=== PATIENT | female | born 1940 | race Caucasian/White ===

== ENCOUNTER 2023-01-22 18:28 | Observation (INO) ==
[2023-01-22 19:49] LABS: Albumin Globulin Ratio 1.3 (0.9-2); Albumin Level 3.8 gm/dl (3.4-5.0); BUN Creatinine Ratio 24.6 (10-20); Bilirubin,Total 0.3 mg/dl (0.2-1.0); Calcium 9.8 mg/dl (8.6-10.3); Creatinine Clr Calc Pharmacy 31.4 ml/min; Est GFR (African American) 46.6 ml/min; Est GFR (Non-African American) 40.2 ml/min; Potassium 4.2 mmol/L (3.5-5.1); Total Protein 6.8 gm/dl (6.0-8.3)
[2023-01-22 20:03] LABS: Basophils # (auto) 0.09 K/uL (0.00-0.20); Basophils % (auto) 0.5 %; Eosinophils # (auto) 0.12 K/uL (0.00-0.50); Eosinophils % (auto) 0.7 %; Hematocrit (blood only) 37.5 % (37.0-47.0); Immature Granulocytes # (auto) 0.08 K/uL (0.01-0.20); Immature Granulocytes % (auto) 0.5 %; Lymphocytes # (auto) 0.61 K/uL (1.20-3.40); Lymphocytes % (auto) 3.6 %; Mean Corpuscular Hemoglobin 29.6 pg (25.0-34.0); Mean Corpuscular Volume 92.6 fL (80.0-100.0); Mean Platelet Volume 11.7 fL (9.4-12.4); Monocytes % (auto) 5.2 %; Neutrophils # (auto) 15.37 K/uL (1.40-6.50); Neutrophils % (auto) 89.5 %; Platelet Count 268 K/uL (130-400); RDW Coefficient of Variation 13.3 % (11.5-14.5); RDW Standard Deviation 45.1 fL (36.4-46.3); Red Blood Count 4.05 M/uL (4.20-5.40); White Blood Count 17.17 K/ul (4.8-10.8)
[2023-01-22 20:12] LABS: Influenza A virus by PCR Negative (Neg); Influenza B virus by PCR Negative (Neg); RSV by PCR Negative (Neg); SARS CoV2 RNA(COVID-19) Ceph NEGATIVE (Negative)
--- NOTE | 2023-01-22 20:51 | XRay Report ---
SINGLE VIEW CHEST CLINICAL HISTORY: Dyspnea. FINDINGS: An AP, portable, upright chest radiograph is obtained. No prior studies are available for c omparison at the time of dictation. The examination is degraded by portable technique and apical lord otic positioning. There is a large hiatal hernia. The cardiomediastinal silhouette is unremarkable no ting atherosclerotic calcification of the thoracic aorta. Nonspecific interstitial thickening is like ly chronic. There is bibasilar scarring/atelectasis. No airspace consolidation or large pleural effus ion is identified. No pneumothorax is seen. The skeletal structures are osteopenic. The bony thorax i s grossly intact. Advanced arthritic change is seen in the shoulders. Surgical clips are noted in the right axilla. IMPRESSION: 1. No active disease in the chest. 2. Large hiatal hernia. ACT 112: Negative or not required by law. Electronically signed by: Jose Aguiar M.D. 01/22/2023 8:50 PM
[2023-01-22] MEDS ORDERED: LORazepam 1 MG TAB PO STA (21:41)
[2023-01-22 21:42] LABS: Base Excess VBG 1.5 mEq/L; HCO3 VBG 27 mmol/L; Oxygen Saturation VBG < 60.0 %; PCO2 VBG 43 mmHg (38-50); PO2 VBG 24 mmHg
[2023-01-22] MEDS ORDERED: OPTIRAY 320 125ml IV ONE (21:49)
--- NOTE | 2023-01-22 22:08 | CT Scan Report ---
CT ANGIOGRAM OF THE CHEST CLINICAL HISTORY: Dyspnea. Fever. COMPARISON STUDY: Chest x-ray dated 01/22/2023. TECHNIQUE: Following the IV administration of 118 cc of Optiray 320, CT angiogram of the chest was pe rformed from the upper abdomen to the thoracic inlet utilizing the pulmonary embolus protocol. Images are reviewed in the axial, sagittal, and coronal planes. 3-D MIPS images are created and assessed. I V contrast was administered without complication. A dose lowering technique was utilized adhering to the principles of ALARA. CT DOSE: 693.32 mGy.cm FINDINGS: Thyroid: Imaged portions of the thyroid gland are normal in size and attenuation. Thoracic aorta: There is atherosclerotic calcification of the thoracic aorta, which is normal in ze lissette and demonstrates standard 3-vessel arch anatomy. No dissection is seen. Pulmonary vasculature: The pulmonary trunk is normal in caliber. There is pulmonary embolus within th e distal left main pulmonary artery. This extends into the left upper, middle, and lower lobe pulmona ry arteries into segmental branches. No left-sided pulmonary emboli are identified. Heart: The heart is top normal in size and without pericardial effusion. The coronary arteries are de nsely calcified. Lungs and pleural spaces: Evaluation of the lung parenchyma is degraded by motion artifact. Linear sc arring/atelectasis is noted in both lungs. There is no airspace consolidation typical for pneumonia o r pleural effusion. The trachea and central airways are clear. Mediastinum: There is no mediastinal lymphadenopathy. Gayathri: Clear. Axillae: Surgical clips are noted in the right axilla. There is no axillary lymphadenopathy. Upper abdomen: There is a large hiatal hernia, with the majority of the stomach located in the thorax . The esophagus is patulous and filled with fluid above the level of the camryn. Complex/hyperdense l eft renal cysts measure up to 1.5 cm. Skeletal structures: The skeletal structures are osteopenic. Degenerative change and kyphoscoliosis i s noted in the thoracic spine. There is a mild chronic compression deformity of T8. No lytic or blast ic bony lesions are seen. Arthritic change is noted in the shoulders. IMPRESSION: 1. Right-sided pulmonary emboli as above. 2. There is no airspace consolidation or pleural effusion. 3. Large hiatal hernia. 4. Additional findings as above. ACT 112: Negative or not required by law. Electronically signed by: Jose Aguiar M.D. 01/22/2023 10:05 PM
[2023-01-22 22:11] LABS: Troponin I High Sensitivity 9.1 pg/ml (0-14)
[2023-01-22] MEDS ORDERED: Heparin IV Adult Wt-Based Standard w/ INITIAL Bolus Protocol IV STA (22:30)
[2023-01-22] MEDS ORDERED: HEPARIN SODIUM/DEXTROSE 25,000 UNITS/500 ML BAG IV SCH (22:45)
[2023-01-22] MEDS ORDERED: HEPARIN SOD (PORCINE) 1000 UNIT/ML IV ONE (22:45)
--- NOTE | 2023-01-22 23:00 | Emergency Department Note ---
History of Present Illness General Chief Complaint: Illness Stated Complaint: FEVER, ILLNESS, HEADACHE Time Seen by Provider: 01/22/23 21:13 History of Present Illness Provider Complaint: shortness of breath Onset (ago): day(s) (1) Maximum Pain Intensity: 2 Exacerbated By: + coughing Associated symptoms: + fever, + cough and + sputum production; no hemoptysis, no abdominal pain or no chest congestion HPI Narrative: EMS reported that the patient was 86% on room air which improved to 98% on 2 L nasal cannula. Home Medications Medication Instructions Recorded Confirmed Type lorazepam 1 mg tablet (Ativan) 1 mg PO BID 11/28/20 01/22/23 History venlafaxine 75 mg capsule,extended 75 mg PO DAILY 11/28/20 01/22/23 History release 24 hr (Effexor XR) rosuvastatin 20 mg tablet (Crestor) 20 mg PO DAILY 03/27/22 01/22/23 History acetaminophen 325 mg tablet 650 mg PO Q4H PRN PAIN/FEVER 01/22/23 01/22/23 History (Tylenol) amlodipine 5 mg tablet 5 mg PO DAILY 01/22/23 01/22/23 History gabapentin 100 mg capsule 100 mg PO BID 01/22/23 01/22/23 History metoprolol succinate 50 mg 50 mg PO BID 01/22/23 01/22/23 History tablet,extended release 24 hr multivitamin 1 tab PO QAM 01/22/23 01/22/23 History oxybutynin chloride 5 mg tablet 5 mg PO DAILY 01/22/23 01/22/23 History propylene glycol 0.6 % eye drops 1 drp OPB BID 01/22/23 01/22/23 History (Systane Complete) quetiapine 25 mg tablet (Seroquel) 25 mg PO HS 01/22/23 01/22/23 History venlafaxine 150 mg 150 mg PO DAILY 01/22/23 01/22/23 History capsule,extended release 24 hr (Effexor XR) Allergies Allergy/AdvReac Type Severity Reaction Status Date / Time tramadol AdvReac Severe Swelling Verified 01/22/23 20:50 of Lip/Tongue/Throat Past Med/Surg History Medical History Cervical radiculopathy Cervical facet syndrome Cervical stenosis of spinal canal Lumbar facet joint syndrome Cervicalgia Bursitis of right hip Left knee DJD Social History Smoking Status: Never smoker Hx Alcohol Use: No Hx Substance Use: No Preferred Language: Greek Communication Ability: Effective Visual Impairment: Limited Hearing Ability: Normal Clinical Case Manager Required: No Beliefs That Will Affect Care: None marital status: Current Living Situation: Spouse Feels Safe at Home: Yes Physical Exam 2 Vital Signs: Vital Signs - 24 hr 01/22/23 18:37 01/22/23 19:59 01/22/23 19:59 Temperature 36.6 C Temperature Source Temporal Artery Sc an Pulse Rate 104 H 90 89 Pulse Rate from Sp O2 Sensor 90 Respiratory Rate 20 18 Respiratory Effort / Characteristics Non-Labored Sponta neous Respiratory Depth Normal Blood Pressure 126/76 Blood Pressure Mindi n 92 Pulse Oximetry 95 94 Oxygen Delivery Me thod Room Air Sepsis Recent Feve r Within 48 Hours No Sepsis New/Unexpla ined Change in Men adriano Status No Sepsis Action Take n by Nursing No Action Required 01/22/23 20:00 01/22/23 20:00 01/22/23 20:10 Temperature Temperature Source Pulse Rate 93 H 89 Pulse Rate from Sp O2 Sensor 93 H 90 Respiratory Rate 22 19 Respiratory Effort / Characteristics Respiratory Depth Blood Pressure 158/82 H 158/82 H Blood Pressure Mindi n 103 107 Pulse Oximetry 93 94 Oxygen Delivery Me thod Sepsis Recent Feve r Within 48 Hours Sepsis New/Unexpla ined Change in Men adriano Status Sepsis Action Take n by Nursing 01/22/23 20:20 01/22/23 20:30 01/22/23 20:40 Temperature Temperature Source Pulse Rate 88 89 89 Pulse Rate from Sp O2 Sensor 88 88 89 Respiratory Rate 19 18 19 Respiratory Effort / Characteristics Respiratory Depth Blood Pressure 142/77 H Blood Pressure Mindi n 98 Pulse Oximetry 92 92 92 Oxygen Delivery Me thod Sepsis Recent Feve r Within 48 Hours Sepsis New/Unexpla ined Change in Men adriano Status Sepsis Action Take n by Nursing 01/22/23 20:50 01/22/23 21:00 01/22/23 21:00 Temperature Temperature Source Pulse Rate 88 85 Pulse Rate from Sp O2 Sensor 88 85 Respiratory Rate 19 19 Respiratory Effort / Characteristics Respiratory Depth Blood Pressure 137/75 Blood Pressure Mindi n 104 Pulse Oximetry 92 91 Oxygen Delivery Me thod Sepsis Recent Feve r Within 48 Hours Sepsis New/Unexpla ined Change in Men adriano Status Sepsis Action Take n by Nursing 01/22/23 21:40 01/22/23 21:57 01/22/23 21:57 Temperature Temperature Source Pulse Rate 93 H 86 Pulse Rate from Sp O2 Sensor 92 H 87 Respiratory Rate 20 19 Respiratory Effort / Characteristics Respiratory Depth Blood Pressure 138/82 Blood Pressure Mindi n 107 Pulse Oximetry 95 94 Oxygen Delivery Me thod Sepsis Recent Feve r Within 48 Hours Sepsis New/Unexpla ined Change in Men adriano Status Sepsis Action Take n by Nursing 01/22/23 22:00 01/22/23 22:00 01/22/23 22:30 Temperature Temperature Source Pulse Rate 85 82 Pulse Rate from Sp O2 Sensor 86 83 Respiratory Rate 21 18 Respiratory Effort / Characteristics Respiratory Depth Blood Pressure 149/79 H Blood Pressure Mindi n 108 Pulse Oximetry 94 95 Oxygen Delivery Me thod Sepsis Recent Feve r Within 48 Hours Sepsis New/Unexpla ined Change in Men adriano Status Sepsis Action Take n by Nursing 01/22/23 22:30 Temperature Temperature Source Pulse Rate Pulse Rate from Sp O2 Sensor Respiratory Rate Respiratory Effort / Characteristics Respiratory Depth Blood Pressure 144/76 H Blood Pressure Mindi n 98 Pulse Oximetry Oxygen Delivery Me thod Sepsis Recent Feve r Within 48 Hours Sepsis New/Unexpla ined Change in Men adriano Status Sepsis Action Take n by Nursing Physical Exam: Physical Exam GENERAL: oriented to person, place, and time. appears well-developed and well- nourished. HENT: Exam performed. - Head: Normocephalic and atraumatic. EYES: Conjunctivae and EOM are normal. Right eye exhibits no discharge. Left eye exhibits no discharge. No scleral icterus. NECK: Normal range of motion. Neck supple. No JVD present. CV: Normal rate, regular rhythm, normal heart sounds and intact distal pulses. There is no peripheral edema. Palpable radial pulses bue. PULM/CHEST: Effort normal and breath sounds normal. No respiratory distress. No stridor. no wheezes. no rales. ABD: The abdomen is soft. There is no tenderness. NEURO: Motor and sensation grossly intact. SKIN: Skin is warm and dry. He is not diaphoretic. PSYCH: normal mood and affect. Behavior is normal. Judgment and thought content normal. Course Course 2112: The patient was evaluated in room C10. A complete history and physical exam was performed Cardiac monitoring: An order was placed for continuous cardiac monitoring. The monitor shows a rate of 100 with sinus rhythm interpreted by me 2245: Vital signs stable. Labs show mildly elevated BNP with a white count of 17. Imaging shows extensive pulmonary emboli. Patient be started on a heparin bolus and drip [facility]. Administered Medications Discontinued Medications Ioversol (Optiray 320 125ml) 118 ml IV ONCE ONE Stop: 01/22/23 21:50 Last Admin: 01/22/23 21:49 Dose: 118 ml Documented By: CHRISTIANNE Lorazepam (Lorazepam 1 Mg Tab) 1 mg PO NOW STA Stop: 01/22/23 21:42 Last Admin: 01/22/23 21:45 Dose: 1 mg Documented By: HAJA Medical Decision Making Laboratory Data Attestation: I reviewed the patient's lab results. 01/22/23 19:10 01/22/23 19:10 Lab Results 01/22/23 01/22/23 Range/Units 19:10 21:33 WBC 17.17 H (4.8-10.8) K/ul RBC 4.05 L (4.20-5.40) M/uL Hgb 12.0 (12.0-16.0) g/dl Hct 37.5 (37.0-47.0) % MCV 92.6 (80.0-100.0) fL MCH 29.6 (25.0-34.0) pg MCHC 32.0 (32.0-36.0) g/dL RDW Std Deviation 45.1 (36.4-46.3) fL RDW Coeff of Delvin 13.3 (11.5-14.5) % Plt Count 268 (130-400) K/uL MPV 11.7 (9.4-12.4) fL Immature Gran % (Auto) 0.5 % Neut % (Auto) 89.5 % Lymph % (Auto) 3.6 % [place]on % (Auto) 5.2 % Eos % (Auto) 0.7 % Baso % (Auto) 0.5 % Neut # (Auto) 15.37 H (1.40-6.50) K/uL Lymph # (Auto) 0.61 L (1.20-3.40) K/uL [place]on # (Auto) 0.90 H (0.11-0.59) K/uL Eos # (Auto) 0.12 (0.00-0.50) K/uL Baso # (Auto) 0.09 (0.00-0.20) K/uL Immature Gran # (Auto) 0.08 (0.01-0.20) K/uL VBG pH 7.40 (7.36-7.41) VBG pCO2 43 (38-50) mmHg VBG pO2 24 mmHg VBG HCO3 27 mmol/L VBG O2 Saturation < 60.0 % VBG Base Excess 1.5 mEq/L Sodium 138 (136-145) mmol/L Potassium 4.2 (3.5-5.1) mmol/L Chloride 105 (98-107) mmol/L Carbon Dioxide 23 (21-32) mmol/L Anion Gap 10 (3-11) BUN 31 H (6-23) mg/dl Creatinine 1.26 H (0.6-1.2) mg/dl Est Cr Clr Drug Dosing 31.4 ml/min Est GFR ( Amer) 46.6 ml/min Est GFR (Non-Af Amer) 40.2 ml/min BUN/Creatinine Ratio 24.6 H (10-20) Glucose 159 H (70-99(Fasting)) mg/dl Calcium 9.8 (8.6-10.3) mg/dl Total Bilirubin 0.3 (0.2-1.0) mg/dl AST 39 (13-39) U/L ALT 31 (7-52) U/L Alkaline Phosphatase 73 (34-104) U/L Troponin I High Sens 9.1 (0-14) pg/ml B-Natriuretic Peptide 251 H (0-100) pg/ml Total Protein 6.8 (6.0-8.3) gm/dl Albumin 3.8 (3.4-5.0) gm/dl Globulin 3.0 (2.5-4.0) gm/dl Albumin/Globulin Ratio 1.3 (0.9-2) SARS-CoV-2 (PCR) NEGATIVE (Negative) Influenza Type A (PCR) Negative (Neg) Influenza Type B (PCR) Negative (Neg) RSV (RT-PCR) Negative (Neg) Imaging Data Radiologist's Impression: Chest X-Ray 01/22/23 18:40 SINGLE VIEW CHEST CLINICAL HISTORY: Dyspnea. FINDINGS: An AP, portable, upright chest radiograph is obtained. No prior studies are available for comparison at the time of dictation. The examination is degraded by portable technique and apical lordotic positioning. There is a large hiatal hernia. The cardiomediastinal silhouette is unremarkable noting atherosclerotic calcification of the thoracic aorta. Nonspecific interstitial thickening is likely chronic. There is bibasilar scarring/atelectasis. No airspace consolidation or large pleural effusion is identified. No pneumothorax is seen. The skeletal structures are osteopenic. The bony thorax is grossly intact. Advanced arthritic change is seen in the shoulders. Surgical clips are noted in the right axilla. IMPRESSION: 1. No active disease in the chest. 2. Large hiatal hernia. ACT 112: Negative or not required by law. Electronically signed by: Jose Aguiar M.D. 01/22/2023 8:50 PM Chest CTA 01/22/23 21:20 CT ANGIOGRAM OF THE CHEST CLINICAL HISTORY: Dyspnea. Fever. COMPARISON STUDY: Chest x-ray dated 01/22/2023. TECHNIQUE: Following the IV administration of 118 cc of Optiray 320, CT angiogram of the chest was performed from the upper abdomen to the thoracic inlet utilizing the pulmonary embolus protocol. Images are reviewed in the axial, sagittal, and coronal planes. 3-D MIPS images are created and assessed. IV contrast was administered without complication. A dose lowering technique was utilized adhering to the principles of ALARA. CT DOSE: 693.32 mGy.cm FINDINGS: Thyroid: Imaged portions of the thyroid gland are normal in size and attenuation. Thoracic aorta: There is atherosclerotic calcification of the thoracic aorta, which is normal in caliber and demonstrates standard 3-vessel arch anatomy. No dissection is seen. Pulmonary vasculature: The pulmonary trunk is normal in caliber. There is pulmonary embolus within the distal left main pulmonary artery. This extends into the left upper, middle, and lower lobe pulmonary arteries into segmental branches. No left-sided pulmonary emboli are identified. Heart: The heart is top normal in size and without pericardial effusion. The coronary arteries are densely calcified. Lungs and pleural spaces: Evaluation of the lung parenchyma is degraded by motion artifact. Linear scarring/atelectasis is noted in both lungs. There is no airspace consolidation typical for pneumonia or pleural effusion. The trachea and central airways are clear. Mediastinum: There is no mediastinal lymphadenopathy. Gayathri: Clear. Axillae: Surgical clips are noted in the right axilla. There is no axillary lymphadenopathy. Upper abdomen: There is a large hiatal hernia, with the majority of the stomach located in the thorax. The esophagus is patulous and filled with fluid above the level of the camryn. Complex/hyperdense left renal cysts measure up to 1.5 cm. Skeletal structures: The skeletal structures are osteopenic. Degenerative change and kyphoscoliosis is noted in the thoracic spine. There is a mild chronic compression deformity of T8. No lytic or blastic bony lesions are seen. Arthritic change is noted in the shoulders. IMPRESSION: 1. Right-sided pulmonary emboli as above. 2. There is no airspace consolidation or pleural effusion. 3. Large hiatal hernia. 4. Additional findings as above. ACT 112: Negative or not required by law. Electronically signed by: Jose Aguiar M.D. 01/22/2023 10:05 PM ECG Data Attestation: I personally reviewed and interpreted this ECG as follows: Interpretation: Sinus tachycardia with a rate of 105. SD QRS and QTc intervals within normal limits. No ST elevation or ST depression. [facility] Narrative 2113: The patient was evaluated in room C10. A complete history and physical exam was performed Cardiac monitoring: An order was placed for continuous cardiac monitoring. The monitor shows a rate of 100 with sinus rhythm interpreted by va 2245: Vital signs stable. Labs show mildly elevated BNP with a white count of 17. Imaging shows extensive pulmonary emboli. Patient be started on a heparin bolus and drip [facility]. Impression & Plan Pulmonary embolism Critical Care Time Critical Care Time: Yes Total Critical Care Time: 48 I have personally spent greater than 48 minutes of critical care time in the direct management of this patient. This includes bedside care, interpretation of diagnostic studies, and testing, discussion with consultants, patient, and family members, and other required patient management activities. This 48 minutes is in excess of all separately billable procedures. Discharge Plan Visit Data Chief Complaint: Illness Stated Complaint: FEVER, ILLNESS, HEADACHE ED Provider: Eliseo Rios Discharge Problem: Pulmonary embolism Patient Disposition: Admitted As Inpatient Forms Stand Alone Forms: My [facility] Prescriptions Prescriptions: No Action rosuvastatin [Crestor] 20 mg tablet 20 mg PO DAILY venlafaxine [Effexor XR] 75 mg capsule,extended release 24hr 75 mg PO DAILY Rx Instructions: TOTAL DOSE 225 MG--TAKES WITH 150 MG CAP. lorazepam [Ativan] 1 mg tablet 1 mg PO BID Rx Instructions: TAKES AT 0800 & 1400 multivitamin Tablet 1 tab PO QAM quetiapine [Seroquel] 25 mg Tablet 25 mg PO HS acetaminophen [Tylenol] 325 mg Tablet 650 mg PO Q4H MDD 3 GRAMS APAP/24 HOURS PRN (Reason: PAIN/FEVER) metoprolol succinate 50 mg Tablet Extended Release 24 Hr 50 mg PO BID venlafaxine [Effexor XR] 150 mg Capsule,Extended Release 24hr 150 mg PO DAILY Rx Instructions: TOTAL DOSE 225 MG--TAKES WITH 75 MG CAP. amlodipine 5 mg Tablet 5 mg PO DAILY gabapentin 100 mg Capsule 100 mg PO BID oxybutynin chloride 5 mg Tablet 5 mg PO DAILY Systane Complete 0.6 % Drops 1 drp OPB BID Referrals Referrals: Jamin Rashid M.D. [Primary Care Provider] - Discharge Problem: Pulmonary embolism Qualifiers: Pulmonary embolism type: unspecified Chronicity: acute Acute cor pulmonale presence: without acute cor pulmonale Qualified Code(s): I26.99 - Other pulmonary embolism without acute cor pulmonale
[2023-01-22] MEDS ORDERED: HEPARIN SOD (PORCINE) 1000 UNIT/ML IV STA (23:12)
--- NOTE | 2023-01-22 23:27 | History & Physical Report ---
Date of Service January 22, 2023 Assessment & Plan (1) Acute pulmonary embolus: Plan: The patient presented with a fever it does appear probably secondary to acute pulmonary emboli. She has never had a thrombotic event in her past history or family history that she is aware. However she is fairly immobile and debilitated typically ambulates with a rollator and limited amounts. She has had left leg discomfort for the past few days. Heparin drip was initiated in the ER we will continue heparin drip at this time will obtain an echocardiogram to analyze for right-sided heart strain. Pending clinical course she will be switched over to oral anticoagulation prior to discharge (2) Left leg pain: Plan: Rule out DVT bilateral lower extremity venous duplexes have been ordered. (3) Debility: Plan: Normally ambulates with a rollator at the assisted living/personal-nursing home she is fairly debilitated and immobile. (4) Breast cancer: Plan: Remotely mid . Status post lumpectomy (5) Hyperlipidemia: Plan: Continue current outpatient treat (6) Hypertension: Plan: Continue current outpatient treat (7) Anxiety: Plan: Continue current outpatient treatment Plan As described above. Please refer to orders for further planning History of Present Illness Chief Complaint: Fever Primary Care Provider: Jamin Rashid M.D. Pleasant 82-year-old female sent from a assisted living type environment/personal nursing home type environment with fever for evaluation in the ER Upon presentation the patient did not have a fever but was found to be hypoxic at 86% when EMS arrived. Her hypoxia improved in the ER. However CTA was performed and was found to have fairly extensive right-sided pulmonary emboli which appear to be acute. Laboratory studies showed a white count of 17,000. Viral panel including COVID influenza A/B and RSV were all negative. She was afebrile in the ER. She was commenced on a heparin drip and we are called admit the patient for acute PE On further history taking when I saw the patient she complains of left-sided leg pain in her lateral thigh/quadriceps region. Otherwise she has no complaints of chest pain or shortness of breath or any other complaints whatsoever. She does state that her recently in October and she has been dealing with that she has been on Ativan for an extended period of time but is using that as well as Seroquel in the evenings. Allergies Allergy/AdvReac Type Severity Reaction Status Date / Time tramadol AdvReac Severe Swelling Verified 01/22/23 20:50 of Lip/Tongue/Throat Home Medications Medication Instructions Recorded Confirmed Type lorazepam 1 mg tablet (Ativan) 1 mg PO BID 11/28/20 01/22/23 History venlafaxine 75 mg capsule,extended 75 mg PO DAILY 11/28/20 01/22/23 History release 24 hr (Effexor XR) rosuvastatin 20 mg tablet (Crestor) 20 mg PO DAILY 03/27/22 01/22/23 History acetaminophen 325 mg tablet 650 mg PO Q4H PRN PAIN/FEVER 01/22/23 01/22/23 History (Tylenol) amlodipine 5 mg tablet 5 mg PO DAILY 01/22/23 01/22/23 History gabapentin 100 mg capsule 100 mg PO BID 01/22/23 01/22/23 History metoprolol succinate 50 mg 50 mg PO BID 01/22/23 01/22/23 History tablet,extended release 24 hr multivitamin 1 tab PO QAM 01/22/23 01/22/23 History oxybutynin chloride 5 mg tablet 5 mg PO DAILY 01/22/23 01/22/23 History propylene glycol 0.6 % eye drops 1 drp OPB BID 01/22/23 01/22/23 History (Systane Complete) quetiapine 25 mg tablet (Seroquel) 25 mg PO HS 01/22/23 01/22/23 History venlafaxine 150 mg 150 mg PO DAILY 01/22/23 01/22/23 History capsule,extended release 24 hr (Effexor XR) Past Med/Surg History Medical History (Updated 01/22/23 @ 23:37 by Gen Thurston, PhD, DO) Debility Left leg pain Acute pulmonary embolus Breast cancer Debility Depression Anxiety Hyperlipidemia Hypertension Cervical radiculopathy Cervical facet syndrome Cervical stenosis of spinal canal Lumbar facet joint syndrome Cervicalgia Bursitis of right hip Left knee DJD Surgical History (Updated 01/22/23 @ 23:34 by Gen Thurston, PhD, DO) History of total hip arthroplasty History of arthroplasty of knee History of lumpectomy Social History Smoking Status: Never smoker Hx Alcohol Use: No Hx Substance Use: No Preferred Language: Chinese Communication Ability: Effective Visual Impairment: Limited Hearing Ability: Normal Supervisor Motor Vehicle Assembly Required: No Beliefs That Will Affect Care: None marital status: Current Living Situation: Spouse Feels Safe at Home: Yes Review of Systems Review of Systems: A 10 point review system was obtained unless otherwise stated here or in history of present illness are negative or noncontributory to chief complaint. Specifically the patient has no history of thrombotic events DVT PE and no family history that she is aware of Physical Exam Physical Exam: In general: This is a pleasant 82-year-old female who is alert and oriented x 3 at time my exam she interacts appropriately and pleasantly at the time my examination she is in no acute distress. HEENT: Normocephalic atraumatic pupils are equal round and reactive to light bilaterally. No scleral icterus no conjunctival injection external auditory canals are patent septum is in the midline nose is without discharge oral mucosa is pink and moist without lesion. NECK: Supple no rigidity no lymphadenopathy no thyromegaly no carotid bruits no JVD no masses. HEART: Regular rate and rhythm I do not appreciate any ectopy or rub. No murmur. LUNGS: Clear to auscultation bilaterally and anteriorly with no evidence of adventitious sounds/wheezes rales or rhonchi. ABDOMEN: Soft nontender, no rebound, no peritoneal signs, positive bowel sounds, no appreciable organomegaly. EXTREMITIES: Intact, no peripheral cyanosis, clubbing or edema-with the exception of some mild edema in the left lateral thigh region where she has been having some pain for the last 2 days.. Strength is 5 out of 5 in extremities x4, no pathological reflexes. NEUROLOGICAL: Cranial nerves II through XII are grossly intact with no focal deficit elicited upon examination. No tremor. Results & Data Results & Data Vital Signs (Past 12 Hours) Vital Signs Temp Pulse Resp BP Pulse Ox O2 Del Method 01/22/23 22:30 144/76 H 01/22/23 22:30 82 18 95 01/22/23 22:00 85 21 94 01/22/23 22:00 149/79 H 01/22/23 21:57 138/82 01/22/23 21:57 86 19 94 01/22/23 21:40 93 H 20 95 01/22/23 21:00 85 19 91 01/22/23 21:00 137/75 01/22/23 20:50 88 19 92 01/22/23 20:40 89 19 92 01/22/23 20:30 89 18 142/77 H 92 01/22/23 20:20 88 19 92 01/22/23 20:10 89 19 94 01/22/23 20:00 93 H 22 158/82 H 93 01/22/23 20:00 158/82 H 01/22/23 19:59 89 18 94 01/22/23 19:59 90 01/22/23 18:37 36.6 C 104 H 20 126/76 95 Room Air Code Status & VTE Plan Code Status DO NOT RESUSCITATE/DO NOT INTUBATE-I discussed extensively with the patient she is recently lost her to in October 2022 and under no circumstances would she want any type of CPR or intubation or mechanical ventilation VTE Prophylaxis Plan VTE Prophylaxis will be ordered: Yes PG Care Time/CCT Total # of Minutes Spent Total Time Spent with Patient: Total time spent is greater than 50% in coordination of care (as documented) at patient's floor/unit and/or counseling patient: Coding Level of Care Code 69606 INT INP/OBS CARE 3/75MIN Diagnoses Acute pulmonary embolus I26.99 Left leg pain M79.605 Debility R53.81 Breast cancer C50.919 Hyperlipidemia E78.5 Hypertension I10 Anxiety F41.9
--- NOTE | 2023-01-23 01:48 | Ultrasound Report ---
Exam(s): US VENOUS BILATERAL LOWER EXTREMITIES EXAM: US Duplex Bilateral Lower Extremities Veins CLINICAL HISTORY: Reason for exam: acute PE, Left leg pain. TECHNIQUE: Real-time duplex ultrasound scan of the bilateral lower extremity veins integrating B-mode two-dimensional vascular structure, Doppler spectral analysis, color flow Doppler imaging and compression. COMPARISON: No relevant prior studies available. FINDINGS: Right deep veins: Nonocclusive thrombus within the right common femoral vein and short segment extending into the proximal femoral vein. Noncompressible right peroneal veins with thrombus. Right superficial veins: Unremarkable. No thrombus in the visualized right great saphenous vein. Left deep veins: Unremarkable. No DVT in the left common femoral, femoral, proximal deep femoral or popliteal veins. The veins demonstrate normal color flow, are normally compressible, with normal phasic flow and/or augmentation response. Left superficial veins: Unremarkable. No thrombus in the visualized left great saphenous vein. Soft tissues: No acute findings. No popliteal cyst. IMPRESSION: Right lower extremity DVT: nonocclusive DVT in the right common femoral and proximal femoral veins. Occlusive DVT in the right peroneal veins. Communications: Call Doctor DVT acute, progressing Electronically signed by: Toñito Potter M.D. 01/23/23 01:47 AM
[2023-01-23] MEDS: ACETAMINOPHEN 325 MG TAB PO PRN ×3 (02:00→20:20)
[2023-01-23] MEDS: QUEtiapine FUMARATE 25 MG TABLET PO SCH ×2 (02:01→20:18)
[2023-01-23] MEDS: GABAPENTIN 100 MG CAP PO SCH ×3 (02:02→20:18)
[2023-01-23] MEDS: METOPROLOL SUCC 50MG EXT REL TAB PO SCH ×3 (02:02→20:19)
[2023-01-23] MEDS: TROLAMINE SALICYLATE 10% CRM 255 APPLN/85 GM TUBE EXT PRN ×2 (02:36→20:19)
[2023-01-23 05:41] LABS: Basophils # (auto) 0.08 K/uL (0.00-0.20); Basophils % (auto) 0.5 %; Eosinophils # (auto) 0.17 K/uL (0.00-0.50); Eosinophils % (auto) 1.1 %; Hematocrit (blood only) 31.9 % (37.0-47.0); Hemoglobin 10.3 g/dl (12.0-16.0); Immature Granulocytes # (auto) 0.07 K/uL (0.01-0.20); Immature Granulocytes % (auto) 0.4 %; Lymphocytes # (auto) 2.22 K/uL (1.20-3.40); Lymphocytes % (auto) 13.9 %; Mean Corpuscular Hemoglobin 29.4 pg (25.0-34.0); Mean Corpuscular Hgb Conc 32.3 g/dL (32.0-36.0); Mean Corpuscular Volume 91.1 fL (80.0-100.0); Mean Platelet Volume 12.1 fL (9.4-12.4); Monocytes # (auto) 1.25 K/uL (0.11-0.59); Monocytes % (auto) 7.8 %; Neutrophils # (auto) 12.22 K/uL (1.40-6.50); Neutrophils % (auto) 76.3 %; Platelet Count 235 K/uL (130-400); RDW Coefficient of Variation 13.2 % (11.5-14.5); RDW Standard Deviation 44.3 fL (36.4-46.3); White Blood Count 16.01 K/ul (4.8-10.8)
[2023-01-23 05:57] LABS: Albumin Globulin Ratio 1.4 (0.9-2); Albumin Level 3.3 gm/dl (3.4-5.0); BUN Creatinine Ratio 21.9 (10-20); Bilirubin,Total 0.3 mg/dl (0.2-1.0); Calcium 9.2 mg/dl (8.6-10.3); Creatinine Clr Calc Pharmacy 30.9 ml/min; Est GFR (African American) 45.7 ml/min; Est GFR (Non-African American) 39.4 ml/min; Globulin 2.3 gm/dl (2.5-4.0); Magnesium 2.3 mg/dl (1.7-2.4); Potassium 4.2 mmol/L (3.5-5.1); Total Protein 5.6 gm/dl (6.0-8.3)
[2023-01-23 06:03] LABS: Troponin I High Sensitivity 10.5 pg/ml (0-14)
[2023-01-23 06:08] LABS: INR 1.1 (0.9-1.1); Prothrombin Time 12.4 Seconds (9.0-12.0)
[2023-01-23 06:58] LABS: Appearance Urine Clear (Clear); Bacteria Urine Automated 4+ (Negative); Bilirubin Urine Negative (Negative); Blood Urine Negative (Negative); Color Urine Yellow; Epithelial Cell Urine Auto >30 /lpf (0-5); Glucose Urine UA Negative (Negative); Ketones Urine Negative (Negative); Leukocyte Esterase Urine 1+ (Negative); Nitrite Urine Positive (Negative); Protein Urine Negative (Negative); RBC Urine Automated 0-4 /hpf (0-4); Specific Gravity Urine > 1.045 (1.000-1.030); Urobilinogen Urine Negative (Negative)
[2023-01-23 07:07] LABS: ANTI-Xa, UFH(UnfractionatedHep 0.98 IU/ml (0.3-0.7)
[2023-01-23] MEDS: VENLAFAXINE HCL XR 75 MG CAPXR PO SCH (08:17)
[2023-01-23] MEDS: oxyBUTYnin chloride 5 MG TAB PO SCH (08:18)
[2023-01-23] MEDS: amLODIPine BESYLATE 5 MG TAB PO SCH (08:18)
[2023-01-23] MEDS: ROSUVASTATIN CALCIUM 20 MG TAB PO SCH (08:19)
[2023-01-23] MEDS: VENLAFAXINE HCL XR 150 MG CAPXR PO SCH (08:19)
[2023-01-23] MEDS: LORazepam 1 MG TAB PO SCH ×2 (09:00→20:18)
[2023-01-23] MEDS ORDERED: INFLUENZA HI-DOSE VACCINE (HD-IIV4) (Fluzone-HD) IM ONE (09:00)
[2023-01-23] MEDS: ARTIFICIAL TEARS OP SCH ×2 (10:03→21:32)
[2023-01-23 13:39] LABS: ANTI-Xa, UFH(UnfractionatedHep 0.61 IU/ml (0.3-0.7)
--- NOTE | 2023-01-23 21:09 | Hospitalist Progress Note ---
Date of Service January 23, 2023 Assessment & Plan (1) Acute pulmonary embolus: Plan: The patient presented with a fever it does appear probably secondary to acute pulmonary emboli. She has never had a thrombotic event in her past history or family history that she is aware. However she is fairly immobile and debilitated typically ambulates with a rollator and limited amounts. She has had left leg discomfort for the past few days. Heparin drip was initiated in the ER we will continue heparin drip at this time will obtain an echocardiogram to analyze for right-sided heart strain. Transitioning to DOAC in the evening of 01/23 (2) Left leg pain: Plan: DVT confirmed on bilateral lower extremity venous duplexes (3) Debility: Plan: Normally ambulates with a rollator at the assisted living/personal-correction she is fairly debilitated and immobile. (4) Breast cancer: Plan: Remotely mid . Status post lumpectomy (5) Hyperlipidemia: Plan: Continue current outpatient treat (6) Hypertension: Plan: Continue current outpatient treat (7) Anxiety: Plan: Continue current outpatient treatment Plan As described above. Please refer to orders for further planning Admission and Anticipated Discharge Date Admission Date: January 22, 2023 Subjective Patient reports no new symptoms. Review of Systems Review of Systems: All systems reviewed & are unremarkable except as noted in HPI & below Physical Exam Physical Exam: Patient is sitting uptight in bed. Patient has no new symptoms. HEART: Regular rate and rhythm I do not appreciate any ectopy or rub. No murmur. LUNGS: CTA BL Results & Data Results & Data Vital Signs (Past 12 Hours) Vital Signs Temp Pulse Pulse Resp BP Pulse Ox O2 Del Method 01/23/23 15:53 37.0 C 73 17 109/65 92 Room Air 01/23/23 15:33 85 01/23/23 11:28 36.5 C 66 16 98/60 L 95 Room Air PG Care Time/CCT Total # of Minutes Spent Total Time Spent with Patient: Total time spent is greater than 50% in coordination of care (as documented) at patient's floor/unit and/or counseling patient: Coding Level of Care Code 56870 SUB INP/OBS CARE 2/35MIN Diagnoses Acute pulmonary embolus I26.99 Left leg pain M79.605 Debility R53.81 Breast cancer C50.919 Hyperlipidemia E78.5 Hypertension I10 Anxiety F41.9
[2023-01-23] MEDS: APIXABAN 5 MG TABLET PO SCH (21:25)
[2023-01-24 05:40] LABS: Hematocrit (blood only) 32.6 % (37.0-47.0); Hemoglobin 10.1 g/dl (12.0-16.0); Mean Corpuscular Volume 93.7 fL (80.0-100.0); Mean Platelet Volume 11.6 fL (9.4-12.4); Platelet Count 229 K/uL (130-400); RDW Coefficient of Variation 13.3 % (11.5-14.5); RDW Standard Deviation 45.4 fL (36.4-46.3); Red Blood Count 3.48 M/uL (4.20-5.40); White Blood Count 9.54 K/ul (4.8-10.8)
[2023-01-24 05:53] LABS: BUN Creatinine Ratio 23.1 (10-20); Calcium 9.1 mg/dl (8.6-10.3); Est GFR (African American) 38.7 ml/min; Est GFR (Non-African American) 33.4 ml/min; Potassium 4.5 mmol/L (3.5-5.1)
--- NOTE | 2023-01-24 07:22 | XCELERA ---
[id number]
[2023-01-24] MEDS: ROSUVASTATIN CALCIUM 20 MG TAB PO SCH (08:17)
[2023-01-24] MEDS: VENLAFAXINE HCL XR 150 MG CAPXR PO SCH (08:17)
[2023-01-24] MEDS: VENLAFAXINE HCL XR 75 MG CAPXR PO SCH (08:17)
[2023-01-24] MEDS: METOPROLOL SUCC 50MG EXT REL TAB PO SCH ×2 (08:17→20:07)
[2023-01-24] MEDS: GABAPENTIN 100 MG CAP PO SCH ×2 (08:17→20:06)
[2023-01-24] MEDS: oxyBUTYnin chloride 5 MG TAB PO SCH (08:17)
[2023-01-24] MEDS: ARTIFICIAL TEARS OP SCH ×2 (08:18→20:06)
[2023-01-24] MEDS: amLODIPine BESYLATE 5 MG TAB PO SCH (08:18)
[2023-01-24] MEDS: APIXABAN 5 MG TABLET PO SCH ×2 (08:18→20:05)
[2023-01-24] MEDS: LORazepam 1 MG TAB PO SCH ×2 (08:21→20:06)
[2023-01-24] MEDS: ACETAMINOPHEN 325 MG TAB PO PRN (17:43)
[2023-01-24] MEDS: QUEtiapine FUMARATE 25 MG TABLET PO SCH (20:07)
[2023-01-24] MEDS: TROLAMINE SALICYLATE 10% CRM 255 APPLN/85 GM TUBE EXT PRN (20:09)
--- NOTE | 2023-01-24 22:39 | Electrocardiogram Report ---
Test Reason : Blood Pressure : / mmHG Vent. Rate : 105 BPM Atrial Rate : 105 BPM P-R Int : 124 ms QRS Dur : 084 ms QT Int : 350 ms P-R-T Axes : 000 023 077 degrees QTc Int : 462 ms Sinus tachycardia Nonspecific ST and T wave abnormality Abnormal ECG No previous ECGs available Confirmed by Sebas Richmond ([id number]) on 01/24/2023 10:39:08 PM Referred By: [facility] Confirmed By:Sebas Richmond
--- NOTE | 2023-01-24 22:49 | Hospitalist Progress Note ---
Date of Service January 24, 2023 Assessment & Plan (1) Acute pulmonary embolus: Plan: The patient presented with a fever it does appear probably secondary to acute pulmonary emboli. She has never had a thrombotic event in her past history or family history that she is aware. However she is fairly immobile and debilitated typically ambulates with a rollator and limited amounts. She has had left leg discomfort for the past few days. Heparin drip was initiated in the ER we will continue heparin drip at this time will obtain an echocardiogram to analyze for right-sided heart strain. Transitioning to DOAC in the evening of 01/23 Anticpate plan for disxharge on 01/25 as Personal snf cannot take her back on the weekend. Also need repeat PT/OT evals. reordered blood work (2) Left leg pain: Plan: DVT confirmed on bilateral lower extremity venous duplexes (3) Debility: Plan: Normally ambulates with a rollator at the assisted living/personal-snf she is fairly debilitated and immobile. (4) Breast cancer: Plan: Remotely mid . Status post lumpectomy (5) Hyperlipidemia: Plan: Continue current outpatient treat (6) Hypertension: Plan: Continue current outpatient treat (7) Anxiety: Plan: Continue current outpatient treatment Plan As described above. Please refer to orders for further planning Admission and Anticipated Discharge Date Admission Date: January 24, 2023 Subjective 82 yo female reports no new sympoms. Review of Systems Review of Systems: All systems reviewed & are unremarkable except as noted in HPI & below Physical Exam Physical Exam: Patient is sitting uptight in bed. Patient has no new symptoms. HEART: Regular rate and rhythm I do not appreciate any ectopy or rub. No murmur. LUNGS: CTA BL Results & Data Results & Data Vital Signs (Past 12 Hours) Vital Signs Temp Pulse Pulse Resp BP Pulse Ox O2 Del Method 01/24/23 22:46 76 01/24/23 22:25 36.7 C 75 16 108/66 95 Room Air 01/24/23 20:16 Room Air 01/24/23 19:00 36.7 C 79 18 123/64 93 Room Air 01/24/23 15:35 36.6 C 77 18 137/70 96 Room Air 01/24/23 14:59 77 01/24/23 12:00 36.4 C L 75 18 138/66 94 Room Air PG Care Time/CCT Total # of Minutes Spent Total Time Spent with Patient: Total time spent is greater than 50% in coordination of care (as documented) at patient's floor/unit and/or counseling patient: Coding Level of Care Code 13845 SUB INP/OBS CARE 2/35MIN Diagnoses Acute pulmonary embolus I26.99 Left leg pain M79.605 Debility R53.81 Breast cancer C50.919 Hyperlipidemia E78.5 Hypertension I10 Anxiety F41.9
[2023-01-25 06:22] LABS: Hematocrit (blood only) 34.3 % (37.0-47.0); Hemoglobin 10.6 g/dl (12.0-16.0); Mean Corpuscular Hemoglobin 29.2 pg (25.0-34.0); Mean Corpuscular Hgb Conc 30.9 g/dL (32.0-36.0); Mean Corpuscular Volume 94.5 fL (80.0-100.0); Mean Platelet Volume 11.4 fL (9.4-12.4); Platelet Count 237 K/uL (130-400); RDW Coefficient of Variation 13.2 % (11.5-14.5); RDW Standard Deviation 45.6 fL (36.4-46.3); Red Blood Count 3.63 M/uL (4.20-5.40); White Blood Count 9.55 K/ul (4.8-10.8)
[2023-01-25 06:41] LABS: BUN Creatinine Ratio 18.8 (10-20); Calcium 9.1 mg/dl (8.6-10.3); Creatinine Clr Calc Pharmacy 24.8 ml/min; Est GFR (African American) 34.9 ml/min; Est GFR (Non-African American) 30.1 ml/min; Potassium 4.4 mmol/L (3.5-5.1)
[2023-01-25] MEDS: amLODIPine BESYLATE 5 MG TAB PO SCH (08:57)
[2023-01-25] MEDS: METOPROLOL SUCC 50MG EXT REL TAB PO SCH (08:58)
[2023-01-25] MEDS: LORazepam 1 MG TAB PO SCH (08:58)
[2023-01-25] MEDS: VENLAFAXINE HCL XR 150 MG CAPXR PO SCH (08:58)
[2023-01-25] MEDS: APIXABAN 5 MG TABLET PO SCH (08:58)
[2023-01-25] MEDS: ARTIFICIAL TEARS OP SCH (08:58)
[2023-01-25] MEDS: oxyBUTYnin chloride 5 MG TAB PO SCH (08:58)
[2023-01-25] MEDS: VENLAFAXINE HCL XR 75 MG CAPXR PO SCH (08:58)
[2023-01-25] MEDS: ROSUVASTATIN CALCIUM 20 MG TAB PO SCH (08:58)
[2023-01-25] MEDS: GABAPENTIN 100 MG CAP PO SCH (08:58)
--- NOTE | 2023-01-25 14:28 | Discharge Summary ---
Date of Service January 25, 2023 Admission HPI Per Admitting Provider Pleasant 82-year-old female sent from a assisted living type environment/personal snf type environment with fever for evaluation in the ER Upon presentation the patient did not have a fever but was found to be hypoxic at 86% when EMS arrived. Her hypoxia improved in the ER. However CTA was performed and was found to have fairly extensive right-sided pulmonary emboli which appear to be acute. Laboratory studies showed a white count of 17,000. Viral panel including COVID influenza A/B and RSV were all negative. She was afebrile in the ER. She was commenced on a heparin drip and we are called admit the patient for acute PE On further history taking when I saw the patient she complains of left-sided leg pain in her lateral thigh/quadriceps region. Otherwise she has no complaints of chest pain or shortness of breath or any other complaints whatsoever. She does state that her recently in October and she has been dealing with that she has been on Ativan for an extended period of time but is using that as well as Seroquel in the evenings. Principal Diagnosis acute pulmonary emboli Discharge Exam Patient is sitting uptight in bed. Patient has no new symptoms. HEART: Regular rate and rhythm I do not appreciate any ectopy or rub. No murmur. LUNGS: CTA BL Discharge Data Allergies Allergy/AdvReac Type Severity Reaction Status Date / Time tramadol AdvReac Severe Swelling Verified 01/22/23 20:50 of Lip/Tongue/Throat Ordered Studies 01/22/23 21:20 CT angio chest PE protocol Stat 01/22/23 23:23 US venous duplex leg [US venous doppler LE ] Routine Hospital Course (1) Acute pulmonary embolus: The patient presented with a fever it does appear probably secondary to acute pulmonary emboli. She has never had a thrombotic event in her past history or family history that she is aware. However she is fairly immobile and debilitated typically ambulates with a rollator and limited amounts. She has had left leg discomfort for the past few days. Heparin drip was initiated in the ER we will continue heparin drip at this time will obtain an echocardiogram to analyze for right-sided heart strain. Transitioning to DOAC in the evening of 01/23 Discharged on 01/25 (2) Left leg pain: DVT confirmed on bilateral lower extremity venous duplexes (3) Debility: Normally ambulates with a rollator at the assisted living/personal-snf she is fairly debilitated and immobile. (4) Breast cancer: Remotely mid 1990s. Status post lumpectomy (5) Hyperlipidemia: Continue current outpatient treat (6) Hypertension: Continue current outpatient treat (7) Anxiety: Continue current outpatient treatment Total Time Total Time Spent Total Time Spent (In Minutes): 32 Discharge Plan Discharge Items Patient Disposition: Personal [facility] Reason For Visit: FEVER / PE Discharge Diagnosis: fever, pulmonary emboli Activity: Resume your previous activity Non-emergency contact: Primary Care Provider Call non-emergency contact if: you have any medication questions Follow-up/Referrals: Jamin Rashid M.D. [Primary Care Provider] - 02/03/23 2:40 pm (Follow up scheduled on : 02/03/23 @ 2:40) Diet: Heart Healthy Addtl Attending Provider Instructions: You were found to have clots in your leg and in your lung. You will need to be on blood thinning medication for at least 4-6 months. Recommend followup with your PCP in 1-2 weeks. Pending Studies at Discharge: No Stand-Alone Forms: My [facility] [place], Smoking Cessation Skilled Items Patient informed of condition?: Yes DNR: Yes Discharge Level of Care: Other Communicable Disease: No Discharge Prognosis: Stable Lines: None Urinary Catheter: No Medications and DC Order Prescriptions: New Eliquis 5 mg Tablet See Rx Instructions .ROUTE .COMPLEX Qty: 70 0RF Rx Instructions: 2 tablets twice a day for 5 more days (10 doses) then 1 tablet twice a day ongoing Continued rosuvastatin [Crestor] 20 mg tablet 20 mg PO DAILY venlafaxine [Effexor XR] 75 mg capsule,extended release 24hr 75 mg PO DAILY Rx Instructions: TOTAL DOSE 225 MG--TAKES WITH 150 MG CAP. lorazepam [Ativan] 1 mg tablet 1 mg PO BID Rx Instructions: TAKES AT 0800 & 1400 multivitamin Tablet 1 tab PO QAM quetiapine [Seroquel] 25 mg Tablet 25 mg PO HS acetaminophen [Tylenol] 325 mg Tablet 650 mg PO Q4H MDD 3 GRAMS APAP/24 HOURS PRN (Reason: PAIN/FEVER) metoprolol succinate 50 mg Tablet Extended Release 24 Hr 50 mg PO BID venlafaxine [Effexor XR] 150 mg Capsule,Extended Release 24hr 150 mg PO DAILY Rx Instructions: TOTAL DOSE 225 MG--TAKES WITH 75 MG CAP. amlodipine 5 mg Tablet 5 mg PO DAILY gabapentin 100 mg Capsule 100 mg PO BID oxybutynin chloride 5 mg Tablet 5 mg PO DAILY Systane Complete 0.6 % Drops 1 drp OPB BID Discharge Orders: Discharge Order (Routine); Ordered 01/25/23 Ordered By: Rony Badillo Admission Data Admit Date/Time: 01/22/23 23:22 Attending Provider: Rony Badillo Admit Provider: Gen Thurston Primary Care Provider: Jamin Rashid Other Interventions: Discharge Summary Assessment (RN) Last Done: 01/25/23 18:14 Coding Level of Care Code 44522 INP/OBS DISCH >30 MIN Diagnoses Acute pulmonary embolus I26.99 Left leg pain M79.605 Debility R53.81 Breast cancer C50.919 Hyperlipidemia E78.5 Hypertension I10 Anxiety F41.9
== END 2023-01-25 18:15 | disposition home or self-care (01) | DRG 176 ==
LOC: ED 18:28 → INTOOBSV 23:22 → 4W 23:22 → SUATTDRO 23:22 → 4W 01-23 00:51

== ENCOUNTER 2023-06-28 14:41 | Inpatient (IN) ==
[2023-06-28] MEDS ORDERED: SODIUM CHLORIDE 0.9% 250 ML IV PRN (14:51)
--- NOTE | 2023-06-28 14:54 | Emergency Department Note ---
Impression & Plan Acute GI bleeding, Anticoagulant long-term use, Shortness of breath ED Provider Note NAME: DEANNE WALTERS AGE: 82 SEX: F : 1940 ARRIVES VIA: Ambulance INFORMANT: Patient, ED PROVIDER(S): Say Cordero MD CHIEF COMPLAINT: Abnormal blood work, outpatient referral MEDICAL DECISION MAKING: Patient presents due to concern for low hemoglobin from blood work that was done earlier today. IV was established including 2 large-bore IVs. Rectal exam was performed with nursing law tutor Cornelius and tech Milla. Patient did have dark stool noted melenic in color that was heme positive. No bright red blood. I did review the patient's prior blood work which showed hemoglobin of 5. The patient was consented and 2 units were ordered. I did speak with the on-call hospital service LUPE Huffman PA-C and Dr. Miller patient was admitted to the medicine service. Critical Care: I have personally spent 35 minutes of critical care time in direct management of this patient. This includes bedside care, interpretation of diagnostic studies, and testing, discussion with consultants, patient, and family members, and other require inpatient management activities. This 35 minutes is in excess of all separately billable procedures. Discussion w/ other healthcare providers: Dr. Miller and LUPE Huffman PA-C inpatient medicine service Prior /Outside records reviewed: None Differential diagnosis: Diverticulitis, AVM, coagulopathy, colitis, inflammatory bowel disease, malignancy, esophagitis, peptic ulcer disease, variceal bleed, gastritis, fissure, hemorrhoids, as well as other pathologies. Diagnostics, as interpreted by me: ECG: Normal sinus rhythm, rate of 87, normal intervals, normal axis no ST elevations or TWI. No significant change for comparison January 22, 2023 Cardiac monitoring: An order was placed for continuous cardiac monitoring. The monitor shows a rate of 85 with sinus rhythm. Patient was placed on pulse oximetry Medical decision rules: None Imaging studies: I informally interpreted the patient's chest x-ray does not show evidence of effusion. with formal report to follow. HPI: Patient presents due to concern for abnormal blood work. The patient was told that she might have low hemoglobin. The patient does admit to some increasing fatigability and shortness of breath but denies any chest pains. Patient has not noticed any bloody stools or dark stools. The patient does take blood thinner Eliquis which she last took this morning for history of PE. Patient denies any falls or trauma has no head or neck pain. Patient denies any fevers or chills. She currently does reside at [facility]. Patient states that she did have symptoms where she did have anemia about 2 or 3 years ago at [facility] at which time she did receive a transfusion. Patient states that she did have bloody stools at that time. Patient denies any abdominal pain. She relates that she has had a prior colonoscopy but is unsure as to findings prior. Patient states that she had routine blood work but was called about the results and told to come to the emergency department. PAST MEDICAL HISTORY: See Below PAST SURGICAL HISTORY: See Below SOCIAL HISTORY: See Below HOME MEDICATIONS: See Below ALLERGIES: See Below VITALS: See Below PHYSICAL EXAMINATION: GENERAL: NAD, non-toxic. Wearing glasses. EYE EXAM: Normal conjunctiva. PERRL, no anisocoria and EOM's grossly intact w/o pain. OROPHARYNX: Moist mucus membranes, grossly normal dentition. NECK: Trachea midline, no stridor. LUNGS: Clear to auscultation. Normal chest wall mechanics. HEART: NSR, no MRG. ABDOMEN: Abdomen soft, non-tender, no masses, no rebound or guarding. BACK: No CVA TTP. Rectal: Dark stool, heme positive no bright red blood. Stool in the rectal vault. SKIN: No rashes and no bruising. UPPER EXTREMITIES: Upper extremities are grossly normal. LOWER EXTREMITIES: Grossly normal, no edema. NEURO EXAM: A&O x3, cranial nerves II-XII grossly intact, normal speech, moves all 4 extremities. Past Med/Surg History Problem List Acute blood loss anemia Shortness of breath (Acute) Anticoagulant long-term use (Acute) Acute GI bleeding (Acute) Debility Left leg pain Breast cancer Debility Depression Anxiety Hyperlipidemia Hypertension Cervical radiculopathy Cervical facet syndrome Cervical stenosis of spinal canal Lumbar facet joint syndrome Cervicalgia Bursitis of right hip Left knee DJD Medical History Pulmonary embolism Surgical History History of total hip arthroplasty History of arthroplasty of knee History of lumpectomy Social History Smoking Status: Never smoker Hx Alcohol Use: No Hx Substance Use: No Preferred Language: Belizean Communication Ability: Effective Visual Impairment: Limited Hearing Ability: Normal Associate Engineer Required: No Beliefs That Will Affect Care: None marital status: Current Living Situation: Personal Care Facility Other Information That Helps Us Care for You: No Feels Safe at Home: Yes Safety Concerns: Feels Safe At This Time Assistive Devices: Glasses, Walker, Wheelchair and Other Assistive Devices Comment: oxygen prn Allergies Allergies Allergy/AdvReac Type Severity Reaction Status Date / Time tramadol AdvReac Severe Swelling Verified 06/28/23 20:51 of Lip/Tongue/Throat Home Meds Home Medications Medication Instructions Recorded Confirmed lorazepam 1 mg tablet (Ativan) 1 mg PO BID 11/28/20 06/28/23 venlafaxine 75 mg capsule,extended See Rx Instructions .Route .COMPLEX 11/28/20 06/28/23 release 24 hr (Effexor XR) rosuvastatin 20 mg tablet (Crestor) 20 mg PO DAILY 03/27/22 06/28/23 acetaminophen 325 mg tablet 650 mg PO TID PRN PAIN/FEVER 01/22/23 06/28/23 (Tylenol) gabapentin 100 mg capsule 100 mg PO BID 01/22/23 06/28/23 metoprolol succinate 50 mg 50 mg PO BID 01/22/23 06/28/23 tablet,extended release 24 hr oxybutynin chloride 5 mg tablet 5 mg PO DAILY 01/22/23 06/28/23 propylene glycol 0.6 % eye drops 1 drp OPB BID 01/22/23 06/28/23 (Systane Complete) quetiapine 25 mg tablet (Seroquel) 25 mg PO HS 01/22/23 06/28/23 venlafaxine 150 mg See Rx Instructions .Route .COMPLEX 01/22/23 06/28/23 capsule,extended release 24 hr (Effexor XR) amlodipine 2.5 mg tablet 2.5 mg PO DAILY 06/28/23 06/28/23 apixaban 5 mg tablet (Eliquis) 5 mg PO BID 06/28/23 06/28/23 docusate sodium 100 mg capsule 100 mg PO DAILY 06/28/23 06/28/23 (Colace) melatonin 5 mg tablet 5 mg PO HS 06/28/23 06/28/23 multivitamin (Daily-Nanette tablet) 1 tab PO DAILY 06/28/23 06/28/23 Results & Data (ED) Vital Signs Vital Signs - 24 hr 06/28/23 14:46 06/28/23 14:48 06/28/23 14:50 Temperature 36.6 C Temperature Source Oral Pulse Rate 86 86 86 Pulse Rate from SpO2 Sensor Respiratory Rate 17 14 22 Respiratory Depth Normal Blood Pressure 129/70 Blood Pressure Mean 89 Pulse Oximetry 98 Oxygen Delivery Method Room Air Sepsis Recent Fever Within 48 Hours No Sepsis New/Unexplained Change in Mental Status No Sepsis Action Taken by Nursing No Action Required 06/28/23 14:52 06/28/23 14:52 06/28/23 14:59 Temperature Temperature Source Pulse Rate 88 Pulse Rate from SpO2 Sensor Respiratory Rate 21 Respiratory Depth Blood Pressure 129/70 Blood Pressure Mean 88 Pulse Oximetry 93 Oxygen Delivery Method Room Air Sepsis Recent Fever Within 48 Hours Sepsis New/Unexplained Change in Mental Status Sepsis Action Taken by Nursing 06/28/23 15:00 06/28/23 15:01 06/28/23 15:01 Temperature Temperature Source Pulse Rate 86 87 Pulse Rate from SpO2 Sensor 86 88 Respiratory Rate 21 18 Respiratory Depth Blood Pressure 137/84 Blood Pressure Mean 116 Pulse Oximetry 92 93 Oxygen Delivery Method Sepsis Recent Fever Within 48 Hours Sepsis New/Unexplained Change in Mental Status Sepsis Action Taken by Nursing 06/28/23 15:10 06/28/23 15:20 06/28/23 15:30 Temperature Temperature Source Pulse Rate 85 85 Pulse Rate from SpO2 Sensor 85 79 Respiratory Rate 20 17 15 Respiratory Depth Blood Pressure Blood Pressure Mean Pulse Oximetry 94 95 Oxygen Delivery Method Sepsis Recent Fever Within 48 Hours Sepsis New/Unexplained Change in Mental Status Sepsis Action Taken by Nursing 06/28/23 15:30 06/28/23 15:40 06/28/23 15:42 Temperature Temperature Source Pulse Rate 81 84 Pulse Rate from SpO2 Sensor 81 Respiratory Rate 13 Respiratory Depth Blood Pressure 127/70 Blood Pressure Mean 93 Pulse Oximetry 96 Oxygen Delivery Method Sepsis Recent Fever Within 48 Hours Sepsis New/Unexplained Change in Mental Status Sepsis Action Taken by Nursing 06/28/23 15:50 06/28/23 16:00 06/28/23 16:00 Temperature Temperature Source Pulse Rate 82 83 Pulse Rate from SpO2 Sensor 82 84 Respiratory Rate 20 18 Respiratory Depth Blood Pressure 135/82 Blood Pressure Mean 91 Pulse Oximetry 95 94 Oxygen Delivery Method Sepsis Recent Fever Within 48 Hours Sepsis New/Unexplained Change in Mental Status Sepsis Action Taken by Nursing 06/28/23 16:00 06/28/23 16:10 06/28/23 16:20 Temperature Temperature Source Pulse Rate 83 83 Pulse Rate from SpO2 Sensor 82 82 Respiratory Rate 18 18 Respiratory Depth Blood Pressure 135/82 Blood Pressure Mean 91 Pulse Oximetry 96 95 Oxygen Delivery Method Sepsis Recent Fever Within 48 Hours Sepsis New/Unexplained Change in Mental Status Sepsis Action Taken by [facility] Medications Current Medication List: was personally reviewed by me Laboratory Data Attestation: I reviewed the patient's lab results. 06/29/23 07:01 06/29/23 07:01 Lab Results 06/28/23 06/28/23 06/28/23 Range/Units 14:51 14:51 14:51 WBC 9.73 (4.8-10.8) K/ul RBC 2.34 L (4.20-5.40) M/uL Hgb 6.1 L* (12.0-16.0) g/dl Hct 19.8 L* (37.0-47.0) % MCV 84.6 (80.0-100.0) fL MCH 26.1 (25.0-34.0) pg MCHC 30.8 L (32.0-36.0) g/dL RDW Std Deviation 47.5 H (36.4-46.3) fL RDW Coeff of Delvin 15.5 H (11.5-14.5) % Plt Count 311 (130-400) K/uL MPV 11.8 (9.4-12.4) fL Immature Gran % (Auto) 0.3 % Neut % (Auto) 61.0 % Lymph % (Auto) 23.8 % Nicollet % (Auto) 9.6 % Eos % (Auto) 4.5 % Baso % (Auto) 0.8 % Reticulocyte % (Auto) 3.07 H Cancelled (0.50-2.00) % Neut # (Auto) 5.93 (1.40-6.50) K/uL Lymph # (Auto) 2.32 (1.20-3.40) K/uL Nicollet # (Auto) 0.93 H (0.11-0.59) K/uL Eos # (Auto) 0.44 (0.00-0.50) K/uL Baso # (Auto) 0.08 (0.00-0.20) K/uL Reticulocyte # 0.070 Cancelled (0.020-0.100) 10^6/uL Immature Gran # (Auto) 0.03 (0.01-0.20) K/uL Hypochromasia Present PT 11.5 (9.0-12.0) Seconds INR 1.1 (0.9-1.1) APTT 23 (21-31) Seconds PTT Ratio 0.9 Sodium 140 (136-145) mmol/L Potassium 4.1 (3.5-5.1) mmol/L Chloride 108 H (98-107) mmol/L Carbon Dioxide 25 (21-32) mmol/L Anion Gap 7 (3-11) BUN 28 H (6-23) mg/dl Creatinine 1.40 H (0.6-1.2) mg/dl Est Cr Clr Drug Dosing 29.3 ml/min Est GFR ( Amer) 41.0 ml/min Est GFR (Non-Af Amer) 35.4 ml/min BUN/Creatinine Ratio 20.0 (10-20) Glucose 126 H (70-99(Fasting)) mg/dl Calcium 9.3 (8.6-10.3) mg/dl Iron 15 L (35-150) mcg/dl TIBC (250-450) mcg/dl Unsaturated IBC (155-355) mcg/dl Transferrin % Sat (15-50) % Ferritin (8-388) ng/ml Total Bilirubin (0.2-1.0) mg/dl AST (13-39) U/L ALT (7-52) U/L Alkaline Phosphatase (34-104) U/L Lactate Dehydrogenase (86-244) U/L Total Protein (6.0-8.3) gm/dl Albumin (3.4-5.0) gm/dl Globulin (2.5-4.0) gm/dl Albumin/Globulin Ratio (0.9-2) Vitamin B12 (180-914) pg/ml Folate (>5.38) ng/ml POC Stool Occult Blood (Negative) Blood Type Blood Type Recheck Antibody Screen Crossmatch 06/28/23 06/28/23 06/28/23 Range/Units 14:51 14:51 14:51 WBC (4.8-10.8) K/ul RBC (4.20-5.40) M/uL Hgb (12.0-16.0) g/dl Hct (37.0-47.0) % MCV (80.0-100.0) fL MCH (25.0-34.0) pg MCHC (32.0-36.0) g/dL RDW Std Deviation (36.4-46.3) fL RDW Coeff of Delvin (11.5-14.5) % Plt Count (130-400) K/uL MPV (9.4-12.4) fL Immature Gran % (Auto) % Neut % (Auto) % Lymph % (Auto) % Nicollet % (Auto) % Eos % (Auto) % Baso % (Auto) % Reticulocyte % (Auto) (0.50-2.00) % Neut # (Auto) (1.40-6.50) K/uL Lymph # (Auto) (1.20-3.40) K/uL Nicollet # (Auto) (0.11-0.59) K/uL Eos # (Auto) (0.00-0.50) K/uL Baso # (Auto) (0.00-0.20) K/uL Reticulocyte # (0.020-0.100) 10^6/uL Immature Gran # (Auto) (0.01-0.20) K/uL Hypochromasia PT (9.0-12.0) Seconds INR (0.9-1.1) APTT (21-31) Seconds PTT Ratio Sodium (136-145) mmol/L Potassium (3.5-5.1) mmol/L Chloride (98-107) mmol/L Carbon Dioxide (21-32) mmol/L Anion Gap (3-11) BUN (6-23) mg/dl Creatinine (0.6-1.2) mg/dl Est Cr Clr Drug Dosing ml/min Est GFR ( Amer) ml/min Est GFR (Non-Af Amer) ml/min BUN/Creatinine Ratio (10-20) Glucose (70-99(Fasting)) mg/dl Calcium (8.6-10.3) mg/dl Iron Cancelled (35-150) mcg/dl TIBC 326 Cancelled (250-450) mcg/dl Unsaturated IBC 311 Cancelled (155-355) mcg/dl Transferrin % Sat 5 L (15-50) % Ferritin (8-388) ng/ml Total Bilirubin (0.2-1.0) mg/dl AST (13-39) U/L ALT (7-52) U/L Alkaline Phosphatase (34-104) U/L Lactate Dehydrogenase (86-244) U/L Total Protein (6.0-8.3) gm/dl Albumin (3.4-5.0) gm/dl Globulin (2.5-4.0) gm/dl Albumin/Globulin Ratio (0.9-2) Vitamin B12 (180-914) pg/ml Folate (>5.38) ng/ml POC Stool Occult Blood (Negative) Blood Type Blood Type Recheck Antibody Screen Crossmatch 06/28/23 06/28/23 06/28/23 Range/Units 14:51 14:51 14:51 WBC (4.8-10.8) K/ul RBC (4.20-5.40) M/uL Hgb (12.0-16.0) g/dl Hct (37.0-47.0) % MCV (80.0-100.0) fL MCH (25.0-34.0) pg MCHC (32.0-36.0) g/dL RDW Std Deviation (36.4-46.3) fL RDW Coeff of Delvin (11.5-14.5) % Plt Count (130-400) K/uL MPV (9.4-12.4) fL Immature Gran % (Auto) % Neut % (Auto) % Lymph % (Auto) % Nicollet % (Auto) % Eos % (Auto) % Baso % (Auto) % Reticulocyte % (Auto) (0.50-2.00) % Neut # (Auto) (1.40-6.50) K/uL Lymph # (Auto) (1.20-3.40) K/uL Nicollet # (Auto) (0.11-0.59) K/uL Eos # (Auto) (0.00-0.50) K/uL Baso # (Auto) (0.00-0.20) K/uL Reticulocyte # (0.020-0.100) 10^6/uL Immature Gran # (Auto) (0.01-0.20) K/uL Hypochromasia PT (9.0-12.0) Seconds INR (0.9-1.1) APTT (21-31) Seconds PTT Ratio Sodium (136-145) mmol/L Potassium (3.5-5.1) mmol/L Chloride (98-107) mmol/L Carbon Dioxide (21-32) mmol/L Anion Gap (3-11) BUN (6-23) mg/dl Creatinine (0.6-1.2) mg/dl Est Cr Clr Drug Dosing ml/min Est GFR ( Amer) ml/min Est GFR (Non-Af Amer) ml/min BUN/Creatinine Ratio (10-20) Glucose (70-99(Fasting)) mg/dl Calcium (8.6-10.3) mg/dl Iron (35-150) mcg/dl TIBC (250-450) mcg/dl Unsaturated IBC (155-355) mcg/dl Transferrin % Sat Cancelled (15-50) % Ferritin 10.7 Cancelled (8-388) ng/ml Total Bilirubin 0.1 L (0.2-1.0) mg/dl AST 13 (13-39) U/L ALT 10 (7-52) U/L Alkaline Phosphatase 53 (34-104) U/L Lactate Dehydrogenase 150 Cancelled (86-244) U/L Total Protein 5.9 L (6.0-8.3) gm/dl Albumin 3.4 (3.4-5.0) gm/dl Globulin 2.5 (2.5-4.0) gm/dl Albumin/Globulin Ratio 1.4 (0.9-2) Vitamin B12 606 (180-914) pg/ml Folate > 22.30 (>5.38) ng/ml POC Stool Occult Blood (Negative) Blood Type A Positive Blood Type Recheck Antibody Screen NEGATIVE Crossmatch See Detail 06/28/23 06/28/23 Range/Units 15:04 16:07 WBC (4.8-10.8) K/ul RBC (4.20-5.40) M/uL Hgb (12.0-16.0) g/dl Hct (37.0-47.0) % MCV (80.0-100.0) fL MCH (25.0-34.0) pg MCHC (32.0-36.0) g/dL RDW Std Deviation (36.4-46.3) fL RDW Coeff of Delvin (11.5-14.5) % Plt Count (130-400) K/uL MPV (9.4-12.4) fL Immature Gran % (Auto) % Neut % (Auto) % Lymph % (Auto) % Nicollet % (Auto) % Eos % (Auto) % Baso % (Auto) % Reticulocyte % (Auto) (0.50-2.00) % Neut # (Auto) (1.40-6.50) K/uL Lymph # (Auto) (1.20-3.40) K/uL Nicollet # (Auto) (0.11-0.59) K/uL Eos # (Auto) (0.00-0.50) K/uL Baso # (Auto) (0.00-0.20) K/uL Reticulocyte # (0.020-0.100) 10^6/uL Immature Gran # (Auto) (0.01-0.20) K/uL Hypochromasia PT (9.0-12.0) Seconds INR (0.9-1.1) APTT (21-31) Seconds PTT Ratio Sodium (136-145) mmol/L Potassium (3.5-5.1) mmol/L Chloride (98-107) mmol/L Carbon Dioxide (21-32) mmol/L Anion Gap (3-11) BUN (6-23) mg/dl Creatinine (0.6-1.2) mg/dl Est Cr Clr Drug Dosing ml/min Est GFR ( Amer) ml/min Est GFR (Non-Af Amer) ml/min BUN/Creatinine Ratio (10-20) Glucose (70-99(Fasting)) mg/dl Calcium (8.6-10.3) mg/dl Iron (35-150) mcg/dl TIBC (250-450) mcg/dl Unsaturated IBC (155-355) mcg/dl Transferrin % Sat (15-50) % Ferritin (8-388) ng/ml Total Bilirubin (0.2-1.0) mg/dl AST (13-39) U/L ALT (7-52) U/L Alkaline Phosphatase (34-104) U/L Lactate Dehydrogenase (86-244) U/L Total Protein (6.0-8.3) gm/dl Albumin (3.4-5.0) gm/dl Globulin (2.5-4.0) gm/dl Albumin/Globulin Ratio (0.9-2) Vitamin B12 (180-914) pg/ml Folate (>5.38) ng/ml POC Stool Occult Blood Positive A (Negative) Blood Type Blood Type Recheck A Positive Antibody Screen Crossmatch Administered Medications Artificial Tears (Artificial Tears) 1 drops OP BID GREYSON Stop: 07/29/23 08:59 Last Admin: 06/29/23 08:29 Dose: 1 drops Documented By: ROBERT Docusate Sodium (Docusate Sodium 100 Mg Cap) 100 mg PO DAILY GREYSON Stop: 07/29/23 08:59 Last Admin: 06/29/23 08:24 Dose: 100 mg Documented By: ROBERT Gabapentin (Gabapentin 100 Mg Cap) 100 mg PO BID GREYSON Stop: 07/28/23 21:44 Last Admin: 06/29/23 08:24 Dose: 100 mg Documented By: Admin: 06/28/23 22:20 Dose: 100 mg Documented By: HARSHA Pantoprazole Sodium 40 mg/ (Dextrose) 100 mls @ 20 mls/hr IV Q5H GREYSON Stop: 07/28/23 15:29 Last Admin: 06/29/23 11:17 Dose: 8 mg/hr, 20 mls/hr Documented By: Infusion: 06/29/23 10:49 Dose: Infused Documented By: Admin: 06/29/23 05:49 Dose: 8 mg/hr, 20 mls/hr Documented By: Infusion: 06/29/23 05:49 Dose: Infused Documented By: Admin: 06/29/23 00:26 Dose: 8 mg/hr, 20 mls/hr Documented By: Infusion: 06/29/23 00:26 Dose: Infused Documented By: Admin: 06/28/23 20:39 Dose: 8 mg/hr, 20 mls/hr Documented By: Infusion: 06/28/23 20:18 Dose: Infused Documented By: Admin: 06/28/23 15:33 Dose: 8 mg/hr, 20 mls/hr Documented By: JOSE Lorazepam (Lorazepam 1 Mg Tab) 1 mg PO BID@0800,1400 GREYSON Stop: 07/29/23 07:59 Last Admin: 06/29/23 08:24 Dose: 1 mg Documented By: ROBERT Metoprolol Succinate (Metoprolol Succ 50mg Ext Rel Tab) 50 mg PO BID GREYSON Stop: 07/28/23 21:44 Last Admin: 06/29/23 08:25 Dose: 50 mg Documented By: Admin: 06/28/23 22:22 Dose: 50 mg Documented By: HARSHA Oxybutynin Chloride (Oxybutynin Chloride 5 Mg Tab) 5 mg PO DAILY GREYSON Stop: 07/29/23 08:59 Last Admin: 06/29/23 08:24 Dose: 5 mg Documented By: ROBERT Quetiapine Fumarate (Quetiapine Fumarate 25 Mg Tablet) 25 mg PO HS GREYSON Stop: 07/28/23 21:44 Last Admin: 06/28/23 22:20 Dose: 25 mg Documented By: HARSHA Rosuvastatin Calcium (Rosuvastatin Calcium 20 Mg Tab) 20 mg PO DAILY GREYSON Stop: 07/29/23 08:59 Last Admin: 06/29/23 08:24 Dose: 20 mg Documented By: ROBERT Venlafaxine HCl (Venlafaxine Hcl Xr 75 Mg Capxr) 75 mg PO DAILY GREYSON Stop: 07/29/23 08:59 Last Admin: 06/29/23 08:25 Dose: 75 mg Documented By: ROBERT Venlafaxine HCl (Venlafaxine Hcl Xr 150 Mg Capxr) 150 mg PO DAILY GREYSON Stop: 07/29/23 08:59 Last Admin: 06/29/23 08:25 Dose: 150 mg Documented By: ROBERT Discontinued Medications Pantoprazole Sodium 80 mg/ (Dextrose) 120 mls @ 480 mls/hr IV NOW ONE Stop: 06/28/23 15:20 Last Infusion: 06/28/23 15:37 Dose: Infused Documented By: Admin: 06/28/23 15:22 Dose: 480 mls/hr Documented By: JOSE Lactated Ringer's (Lr) 1,000 mls @ 125 mls/hr IV .Q8H GREYSON Stop: 06/29/23 08:44 Last Infusion: 06/29/23 11:20 Dose: Infused Documented By: Infusion: 06/29/23 09:16 Dose: 0 mls/hr Documented By: Admin: 06/29/23 03:11 Dose: 125 mls/hr Documented By: AM Lorazepam 1 mg/ Syringe 1 mls @ 2 mls/min IV NOW STA Stop: 06/29/23 03:53 Last Admin: 06/29/23 04:06 Dose: 2 mls/min Documented By: AM Pantoprazole Sodium (Pantoprazole Bolus/Drip) 1 each IV NOW STA Stop: 06/28/23 15:07 Last Admin: 06/28/23 15:41 Dose: Not Given Documented By: MARY Imaging Data Radiologist's Impression: Chest X-Ray 06/28/23 16:00 XR chest 1V portable CLINICAL HISTORY: shortness of breath COMPARISON STUDY: Chest radiograph and chest CT January 22, 2023. FINDINGS: There is no pneumothorax or pleural effusion. Cardiomegaly is unchanged. A large hiatal hernia with intrathoracic stomach is again noted. There is no consolidation to suggest pneumonia. There is no evidence for pulmonary edema. IMPRESSION: 1. No acute cardiopulmonary findings. 2. Large hiatal hernia. ACT 112: Negative or not required by law. Electronically signed by: González Mullen M.D. 06/28/2023 5:04 PM Discharge Plan Visit Data Chief Complaint: Abnormal Labs/Diagnostic Testing ED Provider: Say Cordero Discharge Problem: Acute GI bleeding, Anticoagulant long-term use, Shortness of breath Patient Disposition: Admitted As Inpatient Discharge Instructions Interventions: ED Discharge Assessment Last Done: 06/28/23 18:29
[2023-06-28] MEDS: PANTOprazole 80 MG in DEXTROSE 5% 100 ML IV ONE (15:22)
[2023-06-28 15:23] LABS: Albumin Globulin Ratio 1.4 (0.9-2); Albumin Level 3.4 gm/dl (3.4-5.0); Bilirubin,Total 0.1 mg/dl (0.2-1.0); Calcium 9.3 mg/dl (8.6-10.3); Creatinine Clr Calc Pharmacy 29.3 ml/min; Est GFR (Non-African American) 35.4 ml/min; Globulin 2.5 gm/dl (2.5-4.0); Potassium 4.1 mmol/L (3.5-5.1); Total Protein 5.9 gm/dl (6.0-8.3)
[2023-06-28 15:26] LABS: Hematocrit (blood only) 19.8 % (37.0-47.0); Hemoglobin 6.1 g/dl (12.0-16.0); Mean Corpuscular Hemoglobin 26.1 pg (25.0-34.0); Mean Corpuscular Hgb Conc 30.8 g/dL (32.0-36.0); Mean Corpuscular Volume 84.6 fL (80.0-100.0); Mean Platelet Volume 11.8 fL (9.4-12.4); Platelet Count 311 K/uL (130-400); RDW Coefficient of Variation 15.5 % (11.5-14.5); RDW Standard Deviation 47.5 fL (36.4-46.3); Red Blood Count 2.34 M/uL (4.20-5.40); White Blood Count 9.73 K/ul (4.8-10.8)
[2023-06-28] MEDS: PANTOprazole 40 MG in DEXTROSE 5% MINI-B 100 ML IV SCH (15:33)
[2023-06-28 15:38] LABS: INR 1.1 (0.9-1.1); Partial Thromboplastin Ratio 0.9; Partial Thromboplastin Time 23 Seconds (21-31); Prothrombin Time 11.5 Seconds (9.0-12.0)
[2023-06-28] MEDS: PANTOPRAZOLE BOLUS/DRIP IV STA (15:41)
[2023-06-28 16:06] LABS: Basophils # (auto) 0.08 K/uL (0.00-0.20); Basophils % (auto) 0.8 %; Eosinophils # (auto) 0.44 K/uL (0.00-0.50); Eosinophils % (auto) 4.5 %; Hypochromasia Present; Immature Granulocytes # (auto) 0.03 K/uL (0.01-0.20); Immature Granulocytes % (auto) 0.3 %; Lymphocytes # (auto) 2.32 K/uL (1.20-3.40); Lymphocytes % (auto) 23.8 %; Monocytes # (auto) 0.93 K/uL (0.11-0.59); Monocytes % (auto) 9.6 %; Neutrophils # (auto) 5.93 K/uL (1.40-6.50)
--- NOTE | 2023-06-28 16:13 | History & Physical Report ---
Date of Service June 28, 2023 Assessment & Plan (1) Acute GI bleeding: Plan: Suspect somewhat subacute as she has continued on Eliquis, asymptomatic at rest, hemodynamically stable therefore given size of PE in January discussed with patient that we will elect not to reverse Eliquis with Moraima at this time. Hemoglobin actually improved from lab earlier today. Symptoms started on so bleeding at least since then while on Eliquis. Pantoprazole IV bolus and drip NPO Consult gastroenterology (2) Acute blood loss anemia: Plan: Ferritin, Fe studies, B12, folate, retic count, LDH to assess for alternative cause of anemia Transfuse 2 units packed RBCs and repeat H&H 2 hours following this. Transfusion threshold < 7 overnight. 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 Becky Soler is an 82 year old female who presents to the ER after labs showing low hemoglobin. She reports no dizziness, chest pain or shortness of breath at rest. She does not shortness of breath on exertion. On discussion with Jace Stone - reportedly doing much worse since last week with shortness of breath on exertion and generalized fatigue. No melena or hematochezia noted by care home or patient. No change in bowels, abdominal pain, nausea, or vomiting. No hematuria, hematemesis, hemoptysis, excessive bruising or external bleeding. She reports a history of a GI bleed 2-3 years ago at [facility] which she also received blood transfusions but currently not on a proton pump inhib itor. She notes pulmonary embolism diagnosed here in January and she was started on Eliquis at that time. Last dose of Eliquis (confirmed with Jace Stone) was 8am today (presumably before they had the results of the hemoglobin). She denies any history of liver cirrhosis. Allergies Allergy/AdvReac Type Severity Reaction Status Date / Time tramadol AdvReac Severe Swelling Verified 06/28/23 20:51 of Lip/Tongue/Throat Home Medications Medication Instructions Recorded Confirmed Type lorazepam 1 mg tablet (Ativan) 1 mg PO BID 11/28/20 06/28/23 History venlafaxine 75 mg capsule,extended See Rx Instructions .Route .COMPLEX 11/28/20 06/28/23 History release 24 hr (Effexor XR) rosuvastatin 20 mg tablet (Crestor) 20 mg PO DAILY 03/27/22 06/28/23 History acetaminophen 325 mg tablet 650 mg PO TID PRN PAIN/FEVER 01/22/23 06/28/23 History (Tylenol) gabapentin 100 mg capsule 100 mg PO BID 01/22/23 06/28/23 History metoprolol succinate 50 mg 50 mg PO BID 01/22/23 06/28/23 History tablet,extended release 24 hr oxybutynin chloride 5 mg tablet 5 mg PO DAILY 01/22/23 06/28/23 History propylene glycol 0.6 % eye drops 1 drp OPB BID 01/22/23 06/28/23 History (Systane Complete) quetiapine 25 mg tablet (Seroquel) 25 mg PO HS 01/22/23 06/28/23 History venlafaxine 150 mg See Rx Instructions .Route .COMPLEX 01/22/23 06/28/23 History capsule,extended release 24 hr (Effexor XR) amlodipine 2.5 mg tablet 2.5 mg PO DAILY 06/28/23 06/28/23 History apixaban 5 mg tablet (Eliquis) 5 mg PO BID 06/28/23 06/28/23 History docusate sodium 100 mg capsule 100 mg PO DAILY 06/28/23 06/28/23 History (Colace) melatonin 5 mg tablet 5 mg PO HS 06/28/23 06/28/23 History multivitamin (Daily-Nanette tablet) 1 tab PO DAILY 06/28/23 06/28/23 History Past Med/Surg History Problem List (Updated 06/28/23 @ 16:24 by Tru Miller MD) Acute blood loss anemia Shortness of breath (Acute) Anticoagulant long-term use (Acute) Acute GI bleeding (Acute) Debility Left leg pain Breast cancer Debility Depression Anxiety Hyperlipidemia Hypertension Cervical radiculopathy Cervical facet syndrome Cervical stenosis of spinal canal Lumbar facet joint syndrome Cervicalgia Bursitis of right hip Left knee DJD Medical History (Updated 06/28/23 @ 16:24 by Tru Miller MD) Pulmonary embolism Surgical History (Updated 06/28/23 @ 16:24 by Tru Miller MD) History of total hip arthroplasty History of arthroplasty of knee History of lumpectomy Social History Smoking Status: Never smoker Hx Alcohol Use: No Hx Substance Use: No Preferred Language: [place] Communication Ability: Effective Visual Impairment: Limited Hearing Ability: Normal [employer] Department Manager Required: No Beliefs That Will Affect Care: None marital status: Current Living Situation: Personal Care Facility Other Information That Helps Us Care for You: No Feels Safe at Home: Yes Safety Concerns: Feels Safe At This Time Assistive Devices: Glasses, Walker, Wheelchair and Other Assistive Devices Comment: oxygen prn Review of Systems Review of Systems: All systems reviewed & are unremarkable except as noted in HPI & below Physical Exam Constitutional: WD/WN, vitals as above Eyes: PERRL, conjunctivae normal, anicteric sclerae ENMT: external ear and nose normal, oropharynx normal Respiratory: normal respiratory effort, lungs clear to auscultation Cardiovascular: RRR, no murmur, no edema Gastrointestinal (Abdomen): normal bowel sounds, soft, nontender, no hepatosplenomegaly Musculoskeletal: no cyanosis or clubbing, extremities motor strength 5/5 Skin: no rashes, warm and dry Results & Data Results & Data Vital Signs (Past 12 Hours) Vital Signs Temp Pulse Resp BP Pulse Ox O2 Del Method 06/28/23 15:42 84 06/28/23 15:10 85 20 06/28/23 15:01 87 18 93 06/28/23 15:01 137/84 06/28/23 15:00 86 21 92 06/28/23 14:59 93 Room Air 06/28/23 14:52 88 21 06/28/23 14:52 129/70 06/28/23 14:50 86 22 06/28/23 14:48 36.6 C 86 14 129/70 98 Room Air 06/28/23 14:46 86 17 Laboratory Results Abnormal lab results 06/28/23 Range/Units 14:51 RBC 2.34 L (4.20-5.40) M/uL Hgb 6.1 L* (12.0-16.0) g/dl Hct 19.8 L* (37.0-47.0) % MCHC 30.8 L (32.0-36.0) g/dL RDW Std Deviation 47.5 H (36.4-46.3) fL RDW Coeff of Delvin 15.5 H (11.5-14.5) % Reticulocyte % (Auto) 3.07 H (0.50-2.00) % Chaves # (Auto) 0.93 H (0.11-0.59) K/uL Chloride 108 H (98-107) mmol/L BUN 28 H (6-23) mg/dl Creatinine 1.40 H (0.6-1.2) mg/dl Glucose 126 H (70-99(Fasting)) mg/dl Total Bilirubin 0.1 L (0.2-1.0) mg/dl Total Protein 5.9 L (6.0-8.3) gm/dl Crossmatch See Detail Diagnostic Findings XR chest 1V portable CLINICAL HISTORY: shortness of breath COMPARISON STUDY: Chest radiograph and chest CT January 22, 2023. FINDINGS: There is no pneumothorax or pleural effusion. Cardiomegaly is unchanged. A large hiatal hernia with intrathoracic stomach is again noted. There is no consolidation to suggest pneumonia. There is no evidence for pulmonary edema. IMPRESSION: 1. No acute cardiopulmonary findings. 2. Large hiatal hernia. Medications Administered ER Medications Given: Pantoprazole 80mg bolus and drip ECG Rate (beats per minute): 87 Rhythm: normal sinus Findings: no acute ischemic change Comparison ECG Date: from (January 22, 2023) Change: no significant change Code Status & VTE Plan Code Status DNR/DNI VTE Prophylaxis Plan VTE Prophylaxis will be ordered: Yes PG Care Time/CCT Total # of Minutes Spent Total Time Spent with Patient: Total time spent is greater than 50% in coordination of care (as documented) at patient's floor/unit and/or counseling patient: Coding Level of Care Code 13865 INT INP/OBS CARE 3/75MIN Diagnoses Acute GI bleeding K92.2 Acute blood loss anemia D62 Pulmonary embolism I26.99 Acute cor pulmonale presence: without acute cor pulmonale Chronicity: acute Pulmonary embolism type: unspecified (3) Pulmonary embolism Acute cor pulmonale presence: without acute cor pulmonale Chronicity: acute Pulmonary embolism type: unspecified Qualified Code(s): I26.99 - Other pulmonary embolism without acute cor pulmonale
[2023-06-28 16:27] LABS: Reticulocyte % 3.07 % (0.50-2.00)
[2023-06-28 17:04] LABS: Ferritin 10.7 ng/ml (8-388)
--- NOTE | 2023-06-28 17:06 | Electrocardiogram Report ---
Test Reason : Blood Pressure : / mmHG Vent. Rate : 087 BPM Atrial Rate : 087 BPM P-R Int : 140 ms QRS Dur : 080 ms QT Int : 370 ms P-R-T Axes : 071 030 060 degrees QTc Int : 445 ms Normal sinus rhythm Normal ECG When compared with ECG of 22-JAN-2023 19:03, No significant change was found Confirmed by Don Sousa ([id number]) on 06/28/2023 5:05:37 PM Referred By: REFERRED SELF Confirmed By:Don Sousa
--- NOTE | 2023-06-28 17:06 | XRay Report ---
XR chest 1V portable CLINICAL HISTORY: shortness of breath COMPARISON STUDY: Chest radiograph and chest CT January 22, 2023. FINDINGS: There is no pneumothorax or pleural effusion. Cardiomegaly is unchanged. A large hiatal her ida with intrathoracic stomach is again noted. There is no consolidation to suggest pneumonia. There is no evidence for pulmonary edema. IMPRESSION: 1. No acute cardiopulmonary findings. 2. Large hiatal hernia. ACT 112: Negative or not required by law. Electronically signed by: González Mullen M.D. 06/28/2023 5:04 PM
[2023-06-28 17:26] LABS: Folate (Folic Acid),Ser orPlas > 22.30 ng/ml (>5.38)
[2023-06-28 17:27] LABS: Vitamin B12 606 pg/ml (180-914)
[2023-06-28] MEDS ORDERED: ACETAMINOPHEN 1,000 MG/100 ML VIAL IV PRN (19:24)
[2023-06-28] MEDS: GABAPENTIN 100 MG CAP PO SCH (22:20)
[2023-06-28] MEDS: QUEtiapine FUMARATE 25 MG TABLET PO SCH (22:20)
[2023-06-28] MEDS: METOPROLOL SUCC 50MG EXT REL TAB PO SCH (22:22)
[2023-06-29 00:52] LABS: Hematocrit (blood only) 27.3 % (37.0-47.0); Hemoglobin 8.7 g/dl (12.0-16.0)
[2023-06-29] MEDS: LACTATED RINGER'S 1,000 ML IV SCH (03:11)
[2023-06-29] MEDS: LORazepam 1 MG in SYRINGE 0.5 ML IV STA (04:06)
[2023-06-29 07:29] LABS: Basophils # (auto) 0.08 K/uL (0.00-0.20); Basophils % (auto) 0.9 %; Eosinophils # (auto) 0.54 K/uL (0.00-0.50); Eosinophils % (auto) 5.8 %; Hematocrit (blood only) 24.3 % (37.0-47.0); Hemoglobin 7.6 g/dl (12.0-16.0); Immature Granulocytes # (auto) 0.04 K/uL (0.01-0.20); Immature Granulocytes % (auto) 0.4 %; Lymphocytes # (auto) 2.36 K/uL (1.20-3.40); Lymphocytes % (auto) 25.4 %; Mean Corpuscular Hemoglobin 25.9 pg (25.0-34.0); Mean Corpuscular Hgb Conc 31.3 g/dL (32.0-36.0); Mean Corpuscular Volume 82.7 fL (80.0-100.0); Mean Platelet Volume 11.6 fL (9.4-12.4); Monocytes % (auto) 10.8 %; Neutrophils # (auto) 5.27 K/uL (1.40-6.50); Neutrophils % (auto) 56.7 %; Platelet Count 239 K/uL (130-400); RDW Coefficient of Variation 14.8 % (11.5-14.5); RDW Standard Deviation 45.1 fL (36.4-46.3); Red Blood Count 2.94 M/uL (4.20-5.40); White Blood Count 9.29 K/ul (4.8-10.8)
[2023-06-29 07:43] LABS: BUN Creatinine Ratio 17.5 (10-20); Calcium 8.7 mg/dl (8.6-10.3); Creatinine Clr Calc Pharmacy 32.7 ml/min; Est GFR (African American) 46.6 ml/min; Est GFR (Non-African American) 40.2 ml/min; Potassium 4.2 mmol/L (3.5-5.1)
[2023-06-29 07:56] LABS: Polychromasia 1+
[2023-06-29] MEDS: oxyBUTYnin chloride 5 MG TAB PO SCH (08:24)
[2023-06-29] MEDS: ROSUVASTATIN CALCIUM 20 MG TAB PO SCH (08:24)
[2023-06-29] MEDS: LORazepam 1 MG TAB PO SCH (08:24)
[2023-06-29] MEDS: DOCUSATE SODIUM 100 MG CAP PO SCH (08:24)
[2023-06-29] MEDS: VENLAFAXINE HCL XR 150 MG CAPXR PO SCH (08:25)
[2023-06-29] MEDS: VENLAFAXINE HCL XR 75 MG CAPXR PO SCH (08:25)
[2023-06-29] MEDS: ARTIFICIAL TEARS OP SCH (08:29)
--- NOTE | 2023-06-29 09:46 | Gastrointestinal Consultation ---
Date of Consultation June 29, 2023 Assessment & Plan (1) Acute blood loss anemia: Plan Patient is an 82 year old female who presented to the ED after having a low hgb on outpatient labs. She does use elqiuis for history of PE diagnosed in January 2023. She also admits to daily nsaid use for headaches. hgb on admission was 5.4 and improved after two units of PRBC to 8.7. then this did drop to 7.6. no signs of active bleeding. Discussed case with Dr. Burleson. - continue with protonix drip at this time. - patient declines EGD for evaluation at this time. she prefers to just monitor labs for now. Can monitor for now as she did have her last eliqus in the morning on 06/27. - follow hgb/hct and transfuse as needed. - we discussed avoidance of nsaids, especially with blood thinners. Supervising Physician Co-Signing Physician Notes Agree with CANDICE Dunbar as above Interviewed and examined patient and agree with above Abd: Soft, NT, ND, +BS Continue current therapy and supportive care Proceed with EGD in AM, as she had previously refused invasive workup History of Present Illness Reason for Consultation: GIB Requesting Physician: Tru Miller MD Attending Physician: Deborah Cisneros MD History of Present Illness Patient is an 82 year old female who presented to the ER after outpatient labs were showing low hemoglobin. upon arrival to the ED her hgb was 5.4. she had rectal exam in the ED showing dark stools that were heme positive. she was set up to have 2 units of PRBC and her hgb improved to 8.7. This then dropped down to 7.6. She tells me she has not noticed black stools or blood in her stools at home but admits she does not check this. She tells me she moves her bowels about once a week with last bowel movement being 3 days ago. she has been on eliquis for history of a PE in January 2023. She also admits to daily ibuprofen use due to headaches which she tells me she has been doing for a few months. Patient denies any current issues with nausea, vomiting, dysphagia, heartburn, abdominal pain, unintentional weight loss, change in bowels. she tells me she had an EGD done a few years ago in [place] that she feels was unremarkable. I do not have these records. Allergies Allergy/AdvReac Type Severity Reaction Status Date / Time tramadol AdvReac Severe Swelling Verified 06/28/23 20:51 of Lip/Tongue/Throat Home Medications Medication Instructions Recorded Confirmed Type lorazepam 1 mg tablet (Ativan) 1 mg PO BID 11/28/20 06/28/23 History venlafaxine 75 mg capsule,extended See Rx Instructions .Route .COMPLEX 11/28/20 06/28/23 History release 24 hr (Effexor XR) rosuvastatin 20 mg tablet (Crestor) 20 mg PO DAILY 03/27/22 06/28/23 History acetaminophen 325 mg tablet 650 mg PO TID PRN PAIN/FEVER 01/22/23 06/28/23 History (Tylenol) gabapentin 100 mg capsule 100 mg PO BID 01/22/23 06/28/23 History metoprolol succinate 50 mg 50 mg PO BID 01/22/23 06/28/23 History tablet,extended release 24 hr oxybutynin chloride 5 mg tablet 5 mg PO DAILY 01/22/23 06/28/23 History propylene glycol 0.6 % eye drops 1 drp OPB BID 01/22/23 06/28/23 History (Systane Complete) quetiapine 25 mg tablet (Seroquel) 25 mg PO HS 01/22/23 06/28/23 History venlafaxine 150 mg See Rx Instructions .Route .COMPLEX 01/22/23 06/28/23 History capsule,extended release 24 hr (Effexor XR) amlodipine 2.5 mg tablet 2.5 mg PO DAILY 06/28/23 06/28/23 History apixaban 5 mg tablet (Eliquis) 5 mg PO BID 06/28/23 06/28/23 History docusate sodium 100 mg capsule 100 mg PO DAILY 06/28/23 06/28/23 History (Colace) melatonin 5 mg tablet 5 mg PO HS 06/28/23 06/28/23 History multivitamin (Daily-Nanette tablet) 1 tab PO DAILY 06/28/23 06/28/23 History Patient History Medical History Pulmonary embolism Surgical History History of total hip arthroplasty History of arthroplasty of knee History of lumpectomy Social History Smoking Status: Never smoker Hx Alcohol Use: No Hx Substance Use: No Preferred Language: Uzbek Communication Ability: Effective Visual Impairment: Limited Hearing Ability: Normal [employer] Product Consultant Required: No Beliefs That Will Affect Care: None marital status: Current Living Situation: Personal Care Facility Other Information That Helps Us Care for You: No Feels Safe at Home: Yes Safety Concerns: Feels Safe At This Time Assistive Devices: Walker and Wheelchair Assistive Devices Comment: oxygen prn Review of Systems Review of Systems: All systems reviewed & are unremarkable except as noted in HPI & below Physical Exam Constitutional: WD/WN, vitals as above Respiratory: normal respiratory effort, lungs clear to auscultation Cardiovascular: RRR, no murmur, no edema Gastrointestinal (Abdomen): normal bowel sounds, soft, nontender, no h epatosplenomegaly Skin: no rashes, warm and dry Psychiatric: Orientation: alert and oriented x 3 Affect: euthymic affect Results & Data Vital Signs (Past 12 Hours) Vital Signs Temp Pulse Pulse Resp BP BP Pulse Ox 06/29/23 09:23 78 06/29/23 07:57 98.1 F 83 15 150/75 H 98 06/29/23 02:24 97.9 F 77 18 122/65 95 06/29/23 00:39 82 158/76 H 06/29/23 00:03 82 152/78 H 06/29/23 00:00 80 06/28/23 23:47 81 162/84 H 93 06/28/23 23:21 162/78 H 06/28/23 23:03 158/76 H 06/28/23 22:50 98.2 F 84 18 165/81 H 95 06/28/23 22:19 98.2 F 80 18 158/78 H 93 06/28/23 22:12 98.2 F 82 18 146/86 H 93 O2 Del Method O2 Flow Rate 06/29/23 09:23 06/29/23 07:57 Nasal Cannula 2 06/29/23 02:24 Nasal Cannula 2 06/29/23 00:39 06/29/23 00:03 06/29/23 00:00 06/28/23 23:47 Nasal Cannula 2 06/28/23 23:21 06/28/23 23:03 06/28/23 22:50 06/28/23 22:19 Room Air 06/28/23 22:12 Coding Level of Care Code 14380 INT INP/OBS CARE 2MIN Diagnoses Acute blood loss anemia D62
[2023-06-29 18:18] LABS: Hemoglobin 8.8 g/dl (12.0-16.0); Mean Corpuscular Hemoglobin 26.2 pg (25.0-34.0); Mean Corpuscular Hgb Conc 31.4 g/dL (32.0-36.0); Mean Corpuscular Volume 83.3 fL (80.0-100.0); Platelet Count 288 K/uL (130-400); RDW Coefficient of Variation 15.1 % (11.5-14.5); RDW Standard Deviation 45.7 fL (36.4-46.3); Red Blood Count 3.36 M/uL (4.20-5.40); White Blood Count 8.84 K/ul (4.8-10.8)
--- NOTE | 2023-06-29 19:04 | Hospitalist Progress Note ---
Date of Service June 29, 2023 Assessment & Plan (1) Acute GI bleeding: Plan: Likely acute on chronic bleeding given severe iron deficiency noted and microcytic anemia. However, she was noted to have dark heme positive stool in the ER and so there is likely some component of acute melena. She has been on Eliquis for the last 5 months for PE and this is likely increased any chronic bleeding that she had previously. She does have a large hiatal hernia seen on chest x-ray and could have Scout ulcers. Differential also includes peptic ulcer disease although she denies NSAID or aspirin use, and has had no heartburn symptoms. Appreciate GI consultation-n.p.o. after midnight and plan for EGD tomorrow Serial CBCs show hemoglobin has improved status post 2 units of PRBCs transfused-hemoglobin now up to 8.4 from 5.4 on admission Okay to have clear liquids this evening for dinner and then n.p.o. after midnight Will order maintenance IV fluids to start at midnight while n.p.o. Continue Protonix drip (2) Acute blood loss anemia: Plan: As noted above, with severe iron deficiency with ferritin only 10 and transferrin saturation only 5%. 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 - reason for Eliquis She has been treated with full dose anticoagulation with Eliquis for over 5 months now-okay to discontinue Eliquis given major bleed and severe anemia She had a right lower extremity proximal DVT at that time it was thought to be secondary to immobility She does have a remote history of breast cancer as well Have EGD workup for GI bleeding as above-May need colonoscopy and video capsule endoscopy if no source of bleeding found on EGD especially in light of recent DVT/PE as could have underlying malignancy (4) Depression: Plan: Continue home lorazepam, venlafaxine, quetiapine (5) Hypertension: Plan: Blood pressures are mildly elevated Continue home metoprolol but holding home amlodipine (6) Hiatal hernia: Plan: Noted as above, large intrathoracic stomach Hyperlipidemia-continue statin Neuropathy-continue gabapentin Overactive bladder-continue oxybutynin Chronic pain-continue acetaminophen Plan VTE Prophylaxis - SCDs Disposition -continued stay on PCU Admission and Anticipated Discharge Date Admission Date: June 28, 2023 Subjective Patient reports no bowel movement today, and never noticed any melena or hematochezia at home. No nausea or vomiting or hematemesis. No abdominal pains. She is going to go for an EGD tomorrow She feels fine and has no complaints, denies lightheadedness or shortness of breath or chest pains. She feels no different than when she came in. She denies any NSAID use and reports she only use Tylenol at home Telemetry with normal sinus rhythm and first-degree AV block with rates in the 70s to 80s Physical Exam Constitutional: WD/WN, vitals as above Respiratory: normal respiratory effort, lungs clear to auscultation Cardiovascular: RRR, no murmur, no edema Gastrointestinal (Abdomen): normal bowel sounds, soft, nontender, no hepatosplenomegaly Psychiatric: A+Ox3, euthymic affect Results & Data Results & Data Vital Signs (Past 12 Hours) Vital Signs Temp Pulse Pulse Resp BP Pulse Ox O2 Del Method 06/29/23 16:25 80 06/29/23 15:29 36.6 C 76 15 147/77 H 98 Nasal Cannula 06/29/23 11:10 36.7 C 76 15 147/82 H 99 Nasal Cannula 06/29/23 10:01 Nasal Cannula 06/29/23 09:23 78 06/29/23 07:57 36.7 C 83 15 150/75 H 98 Nasal Cannula O2 Flow Rate 06/29/23 16:25 06/29/23 15:29 2 06/29/23 11:10 2 06/29/23 10:01 06/29/23 09:23 06/29/23 07:57 2 Laboratory Results CBC, BMP, iron studies, B12/folate reviewed PG Care Time/CCT Total # of Minutes Spent Total Time Spent with Patient: Total time spent is greater than 50% in coordination of care (as documented) at patient's floor/unit and/or counseling patient: Coding Level of Care Code 21605 SUB INP/OBS CARE 2/35MIN Diagnoses Acute GI bleeding K92.2 Acute blood loss anemia D62 Pulmonary embolism I26.99 Acute cor pulmonale presence: without acute cor pulmonale Chronicity: acute Pulmonary embolism type: unspecified Depression F32.A Hypertension I10 Hiatal hernia K44.9 (3) Pulmonary embolism Acute cor pulmonale presence: without acute cor pulmonale Chronicity: acute Pulmonary embolism type: unspecified Qualified Code(s): I26.99 - Other pulmonary embolism without acute cor pulmonale
[2023-06-29] MEDS: MELATONIN 3 MG TAB PO SCH (21:20)
[2023-06-29] MEDS: ACETAMINOPHEN 325 MG TAB PO PRN (22:03)
[2023-06-29] MEDS: LORazepam 0.5 MG in SYRINGE 0.25 ML IV STA (22:04)
[2023-06-30 06:34] LABS: Basophils # (auto) 0.09 K/uL (0.00-0.20); Basophils % (auto) 1.1 %; Eosinophils # (auto) 0.44 K/uL (0.00-0.50); Eosinophils % (auto) 5.3 %; Hematocrit (blood only) 27.1 % (37.0-47.0); Hemoglobin 8.5 g/dl (12.0-16.0); Immature Granulocytes # (auto) 0.03 K/uL (0.01-0.20); Immature Granulocytes % (auto) 0.4 %; Lymphocytes % (auto) 17.9 %; Mean Corpuscular Hemoglobin 26.2 pg (25.0-34.0); Mean Corpuscular Hgb Conc 31.4 g/dL (32.0-36.0); Mean Corpuscular Volume 83.6 fL (80.0-100.0); Mean Platelet Volume 11.8 fL (9.4-12.4); Monocytes # (auto) 0.88 K/uL (0.11-0.59); Monocytes % (auto) 10.5 %; Neutrophils # (auto) 5.44 K/uL (1.40-6.50); Neutrophils % (auto) 64.8 %; Platelet Count 290 K/uL (130-400); RDW Coefficient of Variation 14.9 % (11.5-14.5); RDW Standard Deviation 45.4 fL (36.4-46.3); Red Blood Count 3.24 M/uL (4.20-5.40); White Blood Count 8.38 K/ul (4.8-10.8)
[2023-06-30 06:57] LABS: BUN Creatinine Ratio 14.2 (10-20); Calcium 9.2 mg/dl (8.6-10.3); Creatinine Clr Calc Pharmacy 34.3 ml/min; Est GFR (African American) 49.4 ml/min; Est GFR (Non-African American) 42.7 ml/min; Potassium 4.3 mmol/L (3.5-5.1)
--- NOTE | 2023-06-30 09:17 | History & Physical Bridge Note ---
Date of Service June 30, 2023 History & Physical Bridge Note I have examined the patient, reviewed the History & Physical and in the interval since the performance of the History & Physical I have noted the following changes of clinical significance: no changes noted. Patient has been NPO. no chest pain, sob, abdominal pain, nausea, vomiting, heartburn, dysphagia. hgb stable at 8.5. - proceed with EGD today to further evaluate. Supervising Physician Co-Signing Physician Notes Agree with CANDICE Dunbar as above Abd: Soft, NT, ND, +BS Continue current therapy and supportive care Proceed with EGD
--- NOTE | 2023-06-30 09:48 | Anesthesiology Consultation ---
Date of Service June 30, 2023 Assessment & Plan (1) Encounter for pre-operative examination: Chart Review Chart Review: Acceptable Risk for Surgery History Surgery Operation Date: 06/30/23 16:45 Proposed Procedures p Esophagogastroduodenoscopy Dr Benjy Weems Case, DO Height/Weight Height: 5 ft 1 in Weight: 73.5 kg Allergies Allergy/AdvReac Type Severity Reaction Status Date / Time tramadol AdvReac Severe Swelling Verified 06/28/23 20:51 of Lip/Tongue/Throat Medications Home Medications Medication Instructions Recorded Confirmed Last Taken lorazepam 1 mg tablet (Ativan) 1 mg PO BID 11/28/20 06/28/23 01/22/23 venlafaxine 75 mg capsule,extended See Rx Instructions .Route .COMPLEX 11/28/20 06/28/23 01/22/23 release 24 hr (Effexor XR) rosuvastatin 20 mg tablet (Crestor) 20 mg PO DAILY 03/27/22 06/28/23 01/22/23 acetaminophen 325 mg tablet 650 mg PO TID PRN PAIN/FEVER 01/22/23 06/28/23 Unknown (Tylenol) gabapentin 100 mg capsule 100 mg PO BID 01/22/23 06/28/23 01/22/23 08:00 metoprolol succinate 50 mg 50 mg PO BID 01/22/23 06/28/23 01/22/23 08:00 tablet,extended release 24 hr oxybutynin chloride 5 mg tablet 5 mg PO DAILY 01/22/23 06/28/23 01/22/23 propylene glycol 0.6 % eye drops 1 drp OPB BID 01/22/23 06/28/23 01/22/23 08:00 (Systane Complete) quetiapine 25 mg tablet (Seroquel) 25 mg PO HS 01/22/23 06/28/23 01/21/23 venlafaxine 150 mg See Rx Instructions .Route .COMPLEX 01/22/23 06/28/23 01/22/23 capsule,extended release 24 hr (Effexor XR) amlodipine 2.5 mg tablet 2.5 mg PO DAILY 06/28/23 06/28/23 Unknown apixaban 5 mg tablet (Eliquis) 5 mg PO BID 06/28/23 06/28/23 Unknown docusate sodium 100 mg capsule 100 mg PO DAILY 06/28/23 06/28/23 Unknown (Colace) melatonin 5 mg tablet 5 mg PO HS 06/28/23 06/28/23 Unknown multivitamin (Daily-Nanette tablet) 1 tab PO DAILY 06/28/23 06/28/23 Unknown Active Medications Generic Name Dose Route Start Last Admin Trade Name Freq PRN Reason Stop Dose Admin Acetaminophen 650 mg 06/29/23 18:59 06/29/23 22:03 Acetaminophen 325 Mg Tab PO 07/29/23 18:58 650 mg Q4H PRN Administration Pain or Fever Artificial Tears 1 drops 06/29/23 09:00 06/30/23 09:05 Artificial Tears OP 07/29/23 08:59 1 drops BID GREYSON Administration Docusate Sodium 100 mg 06/29/23 09:00 06/30/23 09:05 Docusate Sodium 100 Mg Cap PO 07/29/23 08:59 100 mg DAILY GREYSON Administration Gabapentin 100 mg 06/28/23 21:45 06/30/23 09:04 Gabapentin 100 Mg Cap PO 07/28/23 21:44 100 mg BID GREYSON Administration Pantoprazole Sodium 40 mg/ 100 mls @ 20 mls/hr 06/28/23 15:30 06/30/23 07:41 Dextrose IV 07/28/23 15:29 8 mg/hr Q5H GREYSON 20 mls/hr Administration 8 MG/HR Lorazepam 1 mg 06/29/23 08:00 06/30/23 09:11 Lorazepam 1 Mg Tab PO 07/29/23 07:59 1 mg BID@0800,1400 GREYSON Administration Melatonin 3 mg 06/29/23 21:00 06/29/23 21:20 Melatonin 3 Mg Tab PO 07/29/23 20:59 3 mg HS GREYSON Administration Metoprolol Succinate 50 mg 06/28/23 21:45 06/30/23 09:04 Metoprolol Succ 50mg Ext Rel Tab PO 07/28/23 21:44 50 mg BID GREYSON Administration Oxybutynin Chloride 5 mg 06/29/23 09:00 06/30/23 09:05 Oxybutynin Chloride 5 Mg Tab PO 07/29/23 08:59 5 mg DAILY GREYSON Administration Quetiapine Fumarate 25 mg 06/28/23 21:45 06/29/23 21:21 Quetiapine Fumarate 25 Mg Tablet PO 07/28/23 21:44 25 mg HS GREYSON Administration Rosuvastatin Calcium 20 mg 06/29/23 09:00 06/30/23 09:05 Rosuvastatin Calcium 20 Mg Tab PO 07/29/23 08:59 20 mg DAILY GREYSON Administration Venlafaxine HCl 75 mg 06/29/23 09:00 06/30/23 09:05 Venlafaxine Hcl Xr 75 Mg Capxr PO 07/29/23 08:59 75 mg DAILY GREYSON Administration Venlafaxine HCl 150 mg 06/29/23 09:00 06/30/23 09:05 Venlafaxine Hcl Xr 150 Mg Capxr PO 07/29/23 08:59 150 mg DAILY GREYSON Administration Past Medical History Medical History (Updated 06/30/23 @ 09:48 by Sivakumar Swanson MD) Acute blood loss anemia Anticoagulant long-term use Breast cancer Anxiety Hyperlipidemia Hypertension Cervical stenosis of spinal canal Pulmonary embolism Past Surgical History Surgical History History of total hip arthroplasty History of arthroplasty of knee History of lumpectomy Social History Smoking Status: Never smoker Hx Alcohol Use: No Alcohol type: wine alcohol intake frequency: holidays/special occasions only Hx Substance Use: No Physical Exam Vital Signs Last Vital Signs Temp 36.6 C 06/30/23 07:47 Pulse 80 06/30/23 07:47 Resp 17 06/30/23 07:47 BP 154/81 H 06/30/23 07:47 Pulse Ox 94 06/30/23 07:47 O2 Del Method Room Air 06/30/23 07:47 O2 Flow Rate 2 06/29/23 15:29 Testing Laboratory Results 06/30/23 05:35 06/30/23 05:35 PT 11.5 Seconds (9.0-12.0) 06/28/23 14:51 INR 1.1 (0.9-1.1) 06/28/23 14:51 APTT 23 Seconds (21-31) 06/28/23 14:51 Blood Type A Positive 06/28/23 14:51 Antibody Screen NEGATIVE 06/28/23 14:51 Electrocardiogram Date: 06/28/23 Findings: + NSR @ (87) Echocardiogram Date: 01/24/23 EF: 60-65% LV Function: normal Valvular Disease: + no significant valvular disease
--- NOTE | 2023-06-30 13:24 | Hospitalist Progress Note ---
Date of Service June 30, 2023 Assessment & Plan (1) Acute GI bleeding: Plan: Likely acute on chronic bleeding given severe iron deficiency noted and microcytic anemia. However, she was noted to have dark heme positive stool in the ER and so there is likely some component of acute melena. She has been on Eliquis for the last 5 months for PE and this is likely increased any chronic bleeding that she had previously. She does have a large hiatal hernia seen on chest x-ray and could have Scout ulcers. Differential also includes peptic ulcer disease although she denies NSAID or aspirin use, and has had no heartburn symptoms. Appreciate GI consultation- plan for EGD today No further BM since admission Serial CBCs show hemoglobin has improved status post 2 units of PRBCs transfused-hemoglobin now up to 8.5 from 5.4 on admission Continue Protonix drip Would recommend outpt colonoscopy and possible VCE if no source of bleeding found on EGD (2) Acute blood loss anemia: Plan: As noted above, with severe iron deficiency with ferritin only 10 and transferrin saturation only 5%. LDH normal, B12 and folate normal Follow CBC again in the morning transfuse only if hemoglobin less than 7 or s igns of active bleeding and hemodynamic instability (3) Pulmonary embolism: Plan: History of large right main pulmonary artery embolus in January - reason for Eliquis She has been treated with full dose anticoagulation with Eliquis for over 5 months now-okay to discontinue Eliquis given major bleed and severe anemia She had a right lower extremity proximal DVT at that time it was thought to be secondary to immobility She does have a remote history of breast cancer as well Have EGD workup for GI bleeding as above-May need colonoscopy and video capsule endoscopy if no source of bleeding found on EGD especially in light of recent DVT/PE as could have underlying malignancy (4) Depression: Plan: Continue home lorazepam, venlafaxine, quetiapine (5) Hypertension: Plan: Blood pressures are mildly elevated but improved Continue home metoprolol but holding home amlodipine in case of further bleeding (6) Hiatal hernia: Plan: Noted as above, large intrathoracic stomach Hyperlipidemia-continue statin Neuropathy-continue gabapentin Overactive bladder-continue oxybutynin Chronic pain-continue acetaminophen Plan VTE Prophylaxis - SCDs Disposition -continued stay on PCU, EGD today, stay overnight and likely dc to [facility] tomorrow Admission and Anticipated Discharge Date Admission Date: June 28, 2023 Anticipated date of discharge: 07/01/23 Subjective No BM at all, no abd pain or nausea. Is awaiting EGD Tele with NSR, rates 70-80s Physical Exam Constitutional: WD/WN, vitals as above Respiratory: normal respiratory effort, lungs clear to auscultation Cardiovascular: RRR, no murmur, no edema Gastrointestinal (Abdomen): normal bowel sounds, soft, nontender, no hepatosplenomegaly Psychiatric: A+Ox3, euthymic affect Results & Data Results & Data Vital Signs (Past 12 Hours) Vital Signs Temp Pulse Resp BP Pulse Ox O2 Del Method 06/30/23 10:51 36.7 C 73 18 144/74 H 95 Room Air 06/30/23 07:47 36.6 C 80 17 154/81 H 94 Room Air 06/30/23 03:13 36.6 C 75 16 155/77 H 94 Room Air Laboratory Results CBC, BMP reviewed PG Care Time/CCT Total # of Minutes Spent Total Time Spent with Patient: Total time spent is greater than 50% in coordination of care (as documented) at patient's floor/unit and/or counseling patient: Coding Level of Care Code 24576 SUB INP/OBS CARE 2/35MIN Diagnoses Acute GI bleeding K92.2 Acute blood loss anemia D62 Pulmonary embolism I26.99 Acute cor pulmonale presence: without acute cor pulmonale Chronicity: acute Pulmonary embolism type: unspecified Depression F32.A Hypertension I10 Hiatal hernia K44.9 (3) Pulmonary embolism Acute cor pulmonale presence: without acute cor pulmonale Chronicity: acute Pulmonary embolism type: unspecified Qualified Code(s): I26.99 - Other pulmonary embolism without acute cor pulmonale
--- NOTE | 2023-06-30 14:33 | GI REPORT ---
Patient Name: Becky Soler Procedure Date: 06/30/2023 1:52 PM Date of : 1940 Admit Type: Inpatient Age: 82 Gender: Female Attending MD: Oscar Burleson DO, Procedure: Upper GI endoscopy Providers: Oscar Burleson DO Referring MD: Deborah Cisneros MD, [facility] Indications: Acute post hemorrhagic anemia, Melena Medicines: Monitored Anesthesia Care Complications: No immediate complications. Estimated Blood Loss: Estimated blood loss: none. Procedure: Pre-Anesthesia Assessment: - Prior to the procedure, a History and Physical was performed, and patient medications and allergies were reviewed. The patient's tolerance of previous anesthesia was also reviewed. The risks and benefits of the procedure and the sedation options and risks were discussed with the patient. All questions were answered, and informed consent was obtained. Prior Anticoagulants: The patient has taken Eliquis (apixaban). ASA Grade Assessment: III - A patient with severe systemic disease. After reviewing the risks and benefits, the patient was deemed in satisfactory condition to undergo the procedure. After obtaining informed consent, the endoscope was passed under direct vision. Throughout the procedure, the patient's blood pressure, pulse, and oxygen saturations were monitored continuously. The Endoscope was introduced through the mouth, and advanced to the second part of duodenum. The upper GI endoscopy was accomplished without difficulty. The patient tolerated the procedure well. Findings: The examined esophagus was normal. A large paraesophageal hernia was found. The proximal extent of the gastric folds (end of tubular esophagus) was 35 cm from the incisors. The hiatal narrowing was 41 cm from the incisors. Localized mild inflammation characterized by erythema was found in the gastric antrum. The examined duodenum was normal. Impression: - Normal esophagus. - Large paraesophageal hernia. - Gastritis. - Normal examined duodenum. - No specimens collected. Recommendation: - [facility]. - Advance diet as tolerated. - Continue present medications. Oscar Burleson DO 06/30/2023 2:33:46 PM This report has been signed electronically. Note Initiated On: 06/30/2023 1:52 PM Number of Addenda: 0 I attest to the content of the Intraoperative Record and orders documented therein, exceptions below {[id number]}
--- NOTE | 2023-06-30 14:44 | Anesthesiology Progress Note ---
Date of Service June 30, 2023 Anesthesia Post Procedure Vital Signs Vital Signs: Temp Pulse Pulse Resp BP Pulse Ox O2 Del Method 06/30/23 14:29 36 C L 84 14 169/85 H 96 Oxymask 06/30/23 13:28 36.9 C 74 16 165/85 H 95 Room Air 06/30/23 10:51 36.7 C 73 18 144/74 H 95 Room Air 06/30/23 07:47 36.6 C 80 17 154/81 H 94 Room Air 06/30/23 03:13 36.6 C 75 16 155/77 H 94 Room Air 06/30/23 01:00 74 06/29/23 23:51 36.5 C 75 16 108/66 92 Room Air 06/29/23 20:35 37.0 C 77 16 159/79 H 92 Room Air 06/29/23 16:25 80 06/29/23 15:29 36.6 C 76 15 147/77 H 98 Nasal Cannula O2 Flow Rate 06/30/23 14:29 6 06/30/23 13:28 06/30/23 10:51 06/30/23 07:47 06/30/23 03:13 06/30/23 01:00 06/29/23 23:51 06/29/23 20:35 06/29/23 16:25 06/29/23 15:29 2 Transfer of Care Handoff Completed per policy Notes Mental Status: alert / awake / arousable Patient Amnestic to Procedure: Yes Nausea / Vomiting: adequately controlled Pain: adequately controlled Airway Patency, RR, SpO2: stable & adequate BP & HR: stable & adequate Hydration State: stable & adequate Anesthetic Complications: no major complications apparent
[2023-06-30] MEDS: LIDOCAINE 2% 2 ML VIAL/AMP(20MG/ML) INFIL ONE (18:22)
[2023-06-30] MEDS: PROPOFOL IV EMULSION 10 MG/ML 20 ML VIAL IV ONE (18:23)
[2023-06-30] MEDS ORDERED: Nursing to Pharmacy Communication SCH (20:30)
[2023-06-30] MEDS: LORazepam 1 MG in SYRINGE 0.5 ML IV STA (23:21)
[2023-07-01 06:07] LABS: BUN Creatinine Ratio 13.8 (10-20); Creatinine Clr Calc Pharmacy 25.7 ml/min; Est GFR (African American) 34.9 ml/min; Est GFR (Non-African American) 30.1 ml/min; Potassium 4.2 mmol/L (3.5-5.1)
[2023-07-01 06:08] LABS: Basophils # (auto) 0.06 K/uL (0.00-0.20); Basophils % (auto) 0.6 %; Eosinophils # (auto) 0.45 K/uL (0.00-0.50); Eosinophils % (auto) 4.7 %; Hematocrit (blood only) 27.5 % (37.0-47.0); Hemoglobin 8.6 g/dl (12.0-16.0); Immature Granulocytes # (auto) 0.04 K/uL (0.01-0.20); Immature Granulocytes % (auto) 0.4 %; Lymphocytes # (auto) 2.14 K/uL (1.20-3.40); Lymphocytes % (auto) 22.3 %; Mean Corpuscular Hemoglobin 26.4 pg (25.0-34.0); Mean Corpuscular Hgb Conc 31.3 g/dL (32.0-36.0); Mean Corpuscular Volume 84.4 fL (80.0-100.0); Mean Platelet Volume 11.5 fL (9.4-12.4); Monocytes # (auto) 0.98 K/uL (0.11-0.59); Monocytes % (auto) 10.2 %; Neutrophils # (auto) 5.93 K/uL (1.40-6.50); Neutrophils % (auto) 61.8 %; Platelet Count 277 K/uL (130-400); RDW Coefficient of Variation 14.9 % (11.5-14.5); RDW Standard Deviation 45.5 fL (36.4-46.3); Red Blood Count 3.26 M/uL (4.20-5.40)
[2023-07-01] MEDS: LACTATED RINGER'S 1,000 ML IV SCH (09:40)
[2023-07-01] MEDS: SUCRALFATE 1 GM TAB PO SCH (11:05)
[2023-07-01] MEDS: PANTOprazole 40 MG TAB PO SCH (11:22)
[2023-07-01 12:27] LABS: BUN Creatinine Ratio 15.6 (10-20); Est GFR (African American) 40.7 ml/min; Est GFR (Non-African American) 35.1 ml/min; Potassium 4.3 mmol/L (3.5-5.1)
[2023-07-01] MEDS: OPTIRAY 320 100ml IV ONE (13:24)
--- NOTE | 2023-07-01 14:15 | CT Scan Report ---
ABDOMEN AND PELVIS CT WITH IV AND ORAL CONTRAST CT DOSE: 1184.68 mGy.cm HISTORY: Acute severe anemia with reported GI bleed severe anemia,GI bleed,assess for mass TECHNIQUE: Multiaxial CT images of the abdomen and pelvis were performed following the IV administrat ion of 94 cc of Optiray and oral contrast. A dose lowering technique was utilized adhering to the pr inciples of KYRA. COMPARISON STUDY: None. FINDINGS: Trace right and small left pleural effusions with bibasilar opacities suggestive of atelect asis/scarring. No free air. Cardiomegaly with coronary arterial calcifications. Unremarkable spleen, pancreas and adrenal glands. Borderline gallbladder wall thickening with mild distention. Unremarkabl e liver. Patency of the hepatic and portal veins. Cortical thinning of the kidneys with innumerable bilateral cysts, most which are subcentimeter and t oo small to characterize. There are several intermediate density lesions within the left kidney inclu ding a exophytic 1.6 cm lesion of the superior pole, transudative 27. No hydronephrosis. Unremarkable urinary bladder. Probable intramural leiomyoma of the fundal uterus, 1.7 cm. Atherosclerosis of the aorta without aneurysm. No lymphadenopathy. Large hiatal hernia with partial intrathoracic stomach. Extensive colonic diverticulosis. Moderate co lonic fecal retention. No evidence of acute diverticulitis. No CT evidence of acute appendicitis. No retroperitoneal hematoma. Unremarkable soft tissues. No acute fracture identified. Right hip arthropl asty. IMPRESSION: 1. Colonic diverticulosis without acute diverticulitis. 2. No bowel obstruction or pneumoperitoneum. 3. Large hiatal hernia. 4. Trace right and small left pleural effusions. 5. Innumerable subcentimeter hypodense lesions of the kidneys likely representing cysts with a few in determinate intermediate density lesions of the left kidney possibly promotional representative of complex cysts. Findings could be evaluated with ultrasound. 6. Additional findings as above. ACT 112: Negative or not required by law. The above report was generated using voice recognition software. It may contain grammatical, syntax o r spelling errors. Electronically signed by: Dandy Zaragoza M.D. 07/01/2023 2:12 PM
--- NOTE | 2023-07-01 16:18 | Hospitalist Progress Note ---
Date of Service July 01, 2023 Assessment & Plan (1) Acute GI bleeding: Plan: Likely acute on chronic bleeding given severe iron deficiency noted and microcytic anemia. However, she was noted to have dark heme positive stool in the ER and so there is likely some component of acute melena. She has been on Eliquis for the last 5 months for PE and this is likely increased any chronic bleeding that she had previously. She does have a large hiatal hernia seen on chest x-ray and could have Scout ulcers. Differential also includes peptic ulcer disease although she denies NSAID or aspirin use, and has had no heartburn symptoms. Appreciate GI consultation- s/p EGD 06/29 which showed gastritis and hiatal hernia, no active bleeding Had 1 dark black formed stool since admission Serial CBCs show hemoglobin has improved status post 2 units of PRBCs transfused-hemoglobin now up to 8.6 from 5.[address] abd/pel 06/30 and no masses or other cause of bleeding found. Does have likely fibroid in uterus but no known vaginal bleeding Convert Protonix drip to protonix 40mg po bid Add on Carafate 1 gram po qid Would recommend outpt colonoscopy and possible VCE if no source of bleeding found on EGD-discussed with GI and Nurse Navigator to assist with scheduling Stopped Eliquis (2) Acute blood loss anemia: Plan: As noted above, with severe iron deficiency with ferritin only 10 and transferrin saturation only 5%. LDH normal, B12 and folate normal Follow CBC again in the morning transfuse only if hemoglobin less than 7 or signs of active bleeding and hemodynamic instability Stopped Eliquis (3) Pulmonary embolism: Plan: History of large right main pulmonary artery embolus in January - was on Eliquis since then She has been treated with full dose anticoagulation with Eliquis for over 5 months now-okay to discontinue Eliquis given major bleed and severe anemia She had a right lower extremity proximal DVT at that time it was thought to be secondary to immobility She does have a remote history of breast cancer as well Had EGD for GI bleeding as above- needs colonoscopy and video capsule endoscopy if no source of bleeding found on EGD especially in light of recent DVT/PE as could have underlying malignancy-discussed with patient and her daughter in law as well as with GI Remain off anticoagulation (4) JESSICA (acute kidney injury): Plan: Burr Bench Hand up to 1.6 today-likely from being NPO for extended time yesterday for EGD Giving IVFs and repeat picking supervisor trending downward to 1.4 Finish out this 1L IVF and if picking supervisor continus to improve, can dc to home tomorrow (5) Depression: Plan: Continue home lorazepam, venlafaxine, quetiapine (6) Hypertension: Plan: Blood pressures are normal Continue home metoprolol but holding home amlodipine in case of further bleeding (7) Hiatal hernia: Plan: Noted as above, large intrathoracic stomach Hyperlipidemia-continue statin Neuropathy-continue gabapentin Overactive bladder-continue oxybutynin Chronic pain-continue acetaminophen Plan VTE Prophylaxis - SCDs Disposition -continued stay on PCU, stay overnight and likely dc to [facility] tomorrow Admission and Anticipated Discharge Date Admission Date: June 28, 2023 Subjective Pt had no BMs today but had a black stool x 1 yesterday. No lightheadedness, CP, SOB. No abd pain.She is eating and drinking today Tele with NSR, PACs, PVCs, rates 70-80s Physical Exam Constitutional: WD/WN, vitals as above Respiratory: normal respiratory effort, lungs clear to auscultation Cardiovascular: RRR, no murmur, no edema Gastrointestinal (Abdomen): normal bowel sounds, soft, nontender, no hepatosplenomegaly Skin: right prox forearm with indurated erythematous cord c/w superficial thrombophlebitis Psychiatric: A+Ox3, euthymic affect Results & Data Results & Data Vital Signs (Past 12 Hours) Vital Signs Temp Pulse Pulse Resp BP Pulse Ox O2 Del Method 07/01/23 14:55 36.5 C 70 19 161/79 H 92 Room Air 07/01/23 14:37 73 07/01/23 13:01 71 07/01/23 10:46 36.7 C 77 16 167/75 H 94 Room Air 07/01/23 07:29 36.5 C 73 19 178/82 H 95 Room Air Laboratory Results CBC, BMP x [address] abd/pel reviewed PG Care Time/CCT Total # of Minutes Spent Total Time Spent with Patient: Total time spent is greater than 50% in coordination of care (as documented) at patient's floor/unit and/or counseling patient: Coding Level of Care Code 40303 SUB INP/OBS CARE 2/35MIN Diagnoses Acute GI bleeding K92.2 Acute blood loss anemia D62 Pulmonary embolism I26.99 Acute cor pulmonale presence: without acute cor pulmonale Chronicity: acute Pulmonary embolism type: unspecified JESSICA (acute kidney injury) N17.9 Depression F32.A Hypertension I10 Hiatal hernia K44.9 (3) Pulmonary embolism Acute cor pulmonale presence: without acute cor pulmonale Chronicity: acute Pulmonary embolism type: unspecified Qualified Code(s): I26.99 - Other pulmonary embolism without acute cor pulmonale
[2023-07-02 05:57] LABS: Basophils # (auto) 0.08 K/uL (0.00-0.20); Basophils % (auto) 0.9 %; Eosinophils # (auto) 0.59 K/uL (0.00-0.50); Eosinophils % (auto) 6.9 %; Hematocrit (blood only) 27.6 % (37.0-47.0); Hemoglobin 8.6 g/dl (12.0-16.0); Immature Granulocytes # (auto) 0.03 K/uL (0.01-0.20); Immature Granulocytes % (auto) 0.4 %; Lymphocytes # (auto) 2.17 K/uL (1.20-3.40); Lymphocytes % (auto) 25.3 %; Mean Corpuscular Hemoglobin 26.4 pg (25.0-34.0); Mean Corpuscular Hgb Conc 31.2 g/dL (32.0-36.0); Mean Corpuscular Volume 84.7 fL (80.0-100.0); Mean Platelet Volume 11.6 fL (9.4-12.4); Monocytes % (auto) 10.5 %; Platelet Count 289 K/uL (130-400); RDW Coefficient of Variation 14.8 % (11.5-14.5); RDW Standard Deviation 45.5 fL (36.4-46.3); Red Blood Count 3.26 M/uL (4.20-5.40); White Blood Count 8.57 K/ul (4.8-10.8)
[2023-07-02 06:14] LABS: BUN Creatinine Ratio 15.2 (10-20); Calcium 8.7 mg/dl (8.6-10.3); Creatinine Clr Calc Pharmacy 25.9 ml/min; Est GFR (African American) 35.4 ml/min; Est GFR (Non-African American) 30.6 ml/min; Potassium 4.3 mmol/L (3.5-5.1)
--- NOTE | 2023-07-02 10:42 | Discharge Summary ---
Date of Service July 02, 2023 Admission HPI Per Admitting Provider Becky Soler is an 82 year old female who presents to the ER after labs showing low hemoglobin. She reports no dizziness, chest pain or shortness of breath at rest. She does not shortness of breath on exertion. On discussion with Jace Stone - reportedly doing much worse since last week with shortness of breath on exertion and generalized fatigue. No melena or hematochezia noted by penitentiary or patient. No change in bowels, abdominal pain, nausea, or vomiting. No hematuria, hematemesis, hemoptysis, excessive bruising or external bleeding. She reports a history of a GI bleed 2-3 years ago at [facility] which she also received blood transfusions but currently not on a proton pump inhibitor. She notes pulmonary embolism diagnosed here in January and she was started on Eliquis at that time. Last dose of Eliquis (confirmed with Jace Stone) was 8am today (presumably before they had the results of the hemoglobin). She denies any history of liver cirrhosis. Principal Diagnosis Symptomatic anemia, chronic GI blood loss, acute kidney injury Discharge Exam General-alert and oriented x3, no fever, no chills HEENT-head atraumatic and normocephalic, pupils equal and reactive to light, extraocular muscles intact Neck-no lymphadenopathy or thyromegaly, trachea midline Chest-clear to auscultation. No rales, wheezing or rhonchi Cardiac-regular rate and rhythm, normal S1 and S2 Abdomen-normal bowel sounds, no hepatosplenomegaly Extremities-no cyanosis, clubbing, or edema Neuro-cranial nerves II through XII intact, motor and sensory function within normal limits, strength symmetrical, no focal deficits Psych-normal affect, normal mood Discharge Data Allergies Allergy/AdvReac Type Severity Reaction Status Date / Time tramadol AdvReac Severe Swelling Verified 06/28/23 20:51 of Lip/Tongue/Throat Consultations 06/28/23 15:12 ED Decision to Admit Stat 06/28/23 19:24 Consult Gastroenterology Routine Procedures Performed Operation Date: 06/30/23 16:45 Actual Procedures p Esophagogastroduodenoscopy - Oscar Burleson, DO Ordered Studies 07/01/23 09:58 CT abd pelvis oral and IV con Routine Hospital Course (1) Acute GI bleeding: Likely acute on chronic bleeding given severe iron deficiency noted and microcytic anemia. However, she was noted to have dark heme positive stool in the ER and so there is likely some component of acute melena. She has been on Eliquis for the last 5 months for PE and this is likely increased any chronic bleeding that she had previously. She does have a large hiatal hernia seen on chest x-ray and could have Scout ulcers. Differential also includes peptic ulcer disease although she denies NSAID or aspirin use, and has had no heartburn symptoms. Appreciate GI consultation- s/p EGD 06/29 which showed gastritis and hiatal hernia, no active bleeding Had 1 dark black formed stool since admission Serial CBCs show hemoglobin has improved status post 2 units of PRBCs tr ansfused-hemoglobin now up to 8.6 from 5.[address] abd/pel 06/30 and no masses or other cause of bleeding found. Does have likely fibroid in uterus but no known vaginal bleeding Convert Protonix drip to protonix 40mg po bid Add on Carafate 1 gram po qid Would recommend outpt colonoscopy and possible VCE if no source of bleeding found on EGD-discussed with GI and Nurse Navigator to assist with scheduling Stopped Eliquis (2) Acute blood loss anemia: As noted above, with severe iron deficiency with ferritin only 10 and transferrin saturation only 5%. 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 - was on Eliquis since then She has been treated with full dose anticoagulation with Eliquis for over 5 mo hs now-okay to discontinue Eliquis given major bleed and severe anemia She had a right lower extremity proximal DVT at that time it was thought to be secondary to immobility She does have a remote history of breast cancer as well Had EGD for GI bleeding as above- needs colonoscopy and video capsule endoscopy if no source of bleeding found on EGD especially in light of recent DVT/PE as could have underlying malignancy-discussed with patient and her daughter in law as well as with GI Remain off anticoagulation. Continue oral iron supplement (4) JESSICA (acute kidney injury): Conversion Man up to 1.6 today-likely from being NPO for extended time yesterday for EGD. Resolved with IV fluids. (5) Depression: Continue home lorazepam, venlafaxine, quetiapine (6) Hypertension: Blood pressures are normal Continue home metoprolol. Amlodipine can be restarted at discharge (7) Hiatal hernia: Noted as above, large intrathoracic stomach Hyperlipidemia-continue statin Neuropathy-continue gabapentin Overactive bladder-continue oxybutynin Chronic pain-continue acetaminophen Plan Discharge to [facility] today, July 01 Total Time Total Time Spent Total Time Spent (In Minutes): 45 minutes Discharge Plan Discharge Items Patient Disposition: Personal Half-Way Reason For Visit: ACUTE GI BLEED Discharge Diagnosis: Symptomatic anemia, chronic GI blood loss due to systemic anticoagulation, mild acute kidney injury Activity: Resume your previous activity Non-emergency contact: Primary Care Provider Call non-emergency contact if: your symptoms worsen Follow-up/Referrals: Jamin Rashid M.D. [Primary Care Provider] - Diet: Regular and Heart Healthy Addtl Attending Provider Instructions: Eliquis blood thinner has been discontinued. Continue oral iron replacement. Pantoprazole and sucralfate have been started to prevent any bleeding from the stomach Pending Studies at Discharge: No Stand-Alone Forms: My Wix, Smoking Cessation Skilled Items Patient informed of condition?: Yes DNR: Yes Discharge Level of Care: Other Communicable Disease: No Discharge Prognosis: Stable Lines: None Urinary Catheter: No Medications and DC Order Prescriptions: New sucralfate 1 gram Tablet 1 g PO QID Qty: 120 0RF pantoprazole 40 mg Tablet,Delayed Release (Dr/Ec) 40 mg PO BID Qty: 60 0RF ferrous sulfate 325 mg (65 mg iron) Tablet,Delayed Release (Dr/Ec) 325 mg PO BIDM Qty: 60 0RF Continued rosuvastatin [Crestor] 20 mg tablet 20 mg PO DAILY venlafaxine [Effexor XR] 75 mg capsule,extended release 24hr See Rx Instructions .ROUTE .COMPLEX Rx Instructions: Take 75mg w/ 150mg capsule by mouth to equal 225mg once daily lorazepam [Ativan] 1 mg tablet 1 mg PO BID Rx Instructions: TAKES AT 0800 & 1400 quetiapine [Seroquel] 25 mg Tablet 25 mg PO HS acetaminophen [Tylenol] 325 mg Tablet 650 mg PO TID MDD 3 GRAMS APAP/24 HOURS PRN (Reason: PAIN/FEVER) metoprolol succinate 50 mg Tablet Extended Release 24 Hr 50 mg PO BID venlafaxine [Effexor XR] 150 mg Capsule,Extended Release 24hr See Rx Instructions .ROUTE .COMPLEX Rx Instructions: Take 150mg w/ 75mg capsule by mouth to equal 225mg once daily gabapentin 100 mg Capsule 100 mg PO BID oxybutynin chloride 5 mg Tablet 5 mg PO DAILY Systane Complete 0.6 % Drops 1 drp OPB BID multivitamin [Daily-Nanette] Tablet 1 tab PO DAILY amlodipine 2.5 mg tablet 2.5 mg PO DAILY docusate sodium [Colace] 100 mg Capsule 100 mg PO DAILY melatonin 5 mg Tablet 5 mg PO HS Discontinued Eliquis 5 mg tablet 5 mg PO BID Discharge Orders: Discharge Order (Routine); Ordered 07/02/23 Ordered By: Darren Beasley Admission Data Admit Date/Time: 06/28/23 16:22 Attending Provider: Darren Beasley Admit Provider: Tru Miller Primary Care Provider: Jamin Rashid Other Providers: Tru Miller; Oscar Burleson Other Interventions: Discharge Summary Assessment (RN) Last Done: 06/30/23 14:37 Coding Level of Care Code 29468 INP/OBS DISCH >30 MIN Diagnoses Acute GI bleeding K92.2 Acute blood loss anemia D62 Pulmonary embolism I26.99 Acute cor pulmonale presence: without acute cor pulmonale Chronicity: acute Pulmonary embolism type: unspecified JESSICA (acute kidney injury) N17.9 Depression F32.A Hypertension I10 Hiatal hernia K44.9
[2023-07-02] MEDS: FERROUS SULFATE 325 MG TAB PO SCH (11:32)
== END 2023-07-02 15:58 | disposition home or self-care (01) | DRG 378 ==
LOC: ED 14:41 → SUATTDRO 16:22 → 2S 16:22

== ENCOUNTER 2024-10-20 16:39 | Observation (INO) ==
--- NOTE | 2024-10-20 17:04 | Emergency Department Note ---
Impression & Plan Acute UTI, Weakness ED Provider Note Provider: Jose Alberto Cassidy MD CHIEF COMPLAINT: Weakness HISTORY OF PRESENT ILLNESS: Patient is a 84-year-old female history of GI bleed and PE in the past presenting here today the ambulance from [facility]. Patient evidently yesterday and today was noted to be more fatigued and weak and may have some more irritable according to staff report. Patient states she might of had a little increased cough and congestion. Reports some achy is lower but denies any falls. Maybe a little more forgetful by her report but denies numbness or tingling in extremities is new. Denies any nausea or vomiting. Reports some constipation at times but denies bloody or black stools. Facility staff also states she has a history of urinary incontinence and did not want her to wait until Wednesday to see medical staff as she was not herself and seemed more weak. No fevers reported and afebrile here. PAST MEDICAL HISTORY: As noted above MEDICATIONS: Reviewed medication list from facility SOCIAL HISTORY: Resides a personal care facility PHYSICAL EXAM: GENERAL: alert and oriented in no acute distress on stretcher although a little forgetful on prior hospitalizations for GI bleed in the spring. Head: normocephalic and atraumatic EYES: No injection, discharge or icterus. PERRL, EOMI. NECK: Trachea midline. Good range of motion ENT: Mucous membranes pink and moist. LUNGS: Airway patent. No retractions. Breath sounds clear with good air entry bilaterally. HEART: Regular rate and rhythm. No chest wall tenderness ABDOMEN: Soft and non-tender, without guarding or rebound. SKIN: Acyanotic, warm, dry, without rashes EXTREMITIES: Without swelling, tenderness or deformity NEUROLOGICAL: No focal deficits. No aphasia. No facial droop or slurred speech. EK bpm normal sinus rhythm. PAC without PVC. No acute ST segment elevation or depression with QTc 446. CONTINUOUS CARDIAC MONITORING: was ordered and showed a heart rate of 70s bpm in normal sinus rhythm Patient' laboratory studies and imaging reviewed. Differential includes Infection, dehydration, metabolic abnormality, hypo/hyperglycemia, electrolyte disturbance, anemia, hypoxia, cardiac sources, intracerebral event, toxicologic, neurologic, as well as other pathologies. IMPRESSION/MEDICAL DECISION MAKING: Patient well-appearing in no distress. Vitals reassuring here without fever, tachycardia, hypoxia, or hypotension. No trauma reported. Patient reported to be somewhat more irritable and discussion with her seems like she is little bit forgetful. Unsure if this is new or baseline. No significant focal deficits. Does report maybe some achiness and cough and cold symptoms. History of urinary continence reported by staff. As such we will undertake broad differential including possible infectious or metabolic abnormalities. Respiratory viral panel is send given some slight cough and congestion reported by the patient are living in a personal care facility. Chest x-ray CT of the head and basic blood work is sent. Will obtain urinalysis to exclude UTI. She denies any generalized symptoms to me is not tachycardic or hypotensive and no longer on blood thinners at this point. Lower suspicion for anemia or GI bleed. Blood work here without significant anemia or leukocytosis. No significant electrolyte abnormalities. Chronic CKD appears stable. Respiratory viral panel negative. CT of the head per radiology without acute intracranial abnormality noted. Chest x-ray questioned some nodule right upper lobe of the lung and as such a CT of the chest was completed. This showed more atelectasis from hiatal hernia. Urinalysis appears positive for UTI. Could explain her weakness and myalgias. Does not appear septic. Did discuss with the patient and she resides a personal care if she felt comfortable returning there while starting antibiotics. She states that feel more comfortable staying the night given her weakness. Did receive a dose ceftriaxone based on prior urine cultures in the system. Reached out to the hospitalist for further observation. DIAGNOSIS: Weakness, acute UTI DISPOSITION: Hospitalist will evaluate Patient was agreeable with this plan. Past Med/Surg History Problem List (Updated 10/20/24 @ 21:10 by Jose Alberto Cassidy M.D.) Weakness (Acute) Acute UTI (Acute) JESSICA (acute kidney injury) Shortness of breath (Acute) Acute GI bleeding (Acute) Debility Left leg pain Debility Cervical radiculopathy Cervical facet syndrome Lumbar facet joint syndrome Cervicalgia Bursitis of right hip Left knee DJD Medical History (Updated 10/20/24 @ 21:10 by Jose Alberto Cassidy M.D.) Hiatal hernia Depression Acute blood loss anemia Anticoagulant long-term use Breast cancer Anxiety Hyperlipidemia Hypertension Cervical stenosis of spinal canal Pulmonary embolism Surgical History History of total hip arthroplasty History of arthroplasty of knee History of lumpectomy Social History Smoking Status: Never smoker Hx Alcohol Use: No Hx Substance Use: No Preferred Language: Arabic Communication Ability: Effective Visual Impairment: Limited Hearing Ability: Normal Spool Worker Required: No Beliefs That Will Affect Care: None marital status: Current Living Situation: Personal Care Facility Feels Safe at Home: Yes Assistive Devices: Walker and Wheelchair Allergies Allergies Allergy/AdvReac Type Severity Reaction Status Date / Time tramadol AdvReac Severe Swelling Verified 06/28/23 20:51 of Lip/Tongue/Throat Home Meds Home Medications Medication Instructions Recorded Confirmed lorazepam 1 mg tablet (Ativan) 1 mg PO BID 11/28/20 10/20/24 venlafaxine 75 mg capsule,extended See Rx Instructions .Route .COMPLEX 11/28/20 10/20/24 release 24 hr (Effexor XR) rosuvastatin 20 mg tablet (Crestor) 20 mg PO DAILY 03/27/22 10/20/24 acetaminophen 325 mg tablet 650 mg PO TID PRN PAIN/FEVER 01/22/23 10/20/24 (Tylenol) gabapentin 100 mg capsule 100 mg PO BID 01/22/23 10/20/24 metoprolol succinate 50 mg 50 mg PO BID 01/22/23 10/20/24 tablet,extended release 24 hr oxybutynin chloride 5 mg tablet 5 mg PO DAILY 01/22/23 10/20/24 propylene glycol 0.6 % eye drops 1 drp OPB BID 01/22/23 10/20/24 (Systane Complete) quetiapine 25 mg tablet (Seroquel) 25 mg PO HS 01/22/23 10/20/24 venlafaxine 150 mg See Rx Instructions .Route .COMPLEX 01/22/23 10/20/24 capsule,extended release 24 hr (Effexor XR) amlodipine 2.5 mg tablet 2.5 mg PO DAILY 06/28/23 10/20/24 docusate sodium 100 mg capsule 100 mg PO DAILY 06/28/23 10/20/24 (Colace) melatonin 5 mg tablet 5 mg PO HS 06/28/23 10/20/24 multivitamin (Daily-Nanette tablet) 1 tab PO DAILY 06/28/23 10/20/24 Previous Rx's Medication Instructions Recorded ferrous sulfate 325 mg (65 mg 325 mg PO BIDM #60 tabs 07/02/23 iron) tablet,delayed release pantoprazole 40 mg tablet,delayed 40 mg PO BID #60 tabs 07/02/23 release sucralfate 1 gram tablet 1 g PO QID #120 tabs 07/02/23 Results & Data (ED) Vital Signs Vital Signs - 24 hr 10/20/24 16:49 10/20/24 17:14 10/20/24 19:11 Temperature 36.7 C Temperature Source Oral Pulse Rate 74 72 Pulse Rate [Finger] 77 Respiratory Rate 15 20 Respiratory Effort / Characteristics Non-Labored Spontaneous Respiratory Depth Normal Respiratory Pattern Regular Blood Pressure 158/89 H Blood Pressure [Right Arm] 174/99 H Blood Pressure Mean 112 Blood Pressure Mean [Right Arm] 124 Blood Pressure Position Lying Pulse Oximetry 95 94 Oxygen Delivery Method Room Air Room Air Sepsis Recent Fever Within 48 Hours No Sepsis New/Unexplained Change in Mental Status N/A Sepsis Action Taken by Nursing No Action Required 10/20/24 20:44 10/20/24 21:05 Temperature Temperature Source Pulse Rate 75 Pulse Rate [Finger] 73 Respiratory Rate 20 Respiratory Effort / Characteristics Respiratory Depth Respiratory Pattern Blood Pressure Blood Pressure [Right Arm] 172/86 H Blood Pressure Mean Blood Pressure Mean [Right Arm] 114 Blood Pressure Position Pulse Oximetry 95 Oxygen Delivery Method Room Air Sepsis Recent Fever Within 48 Hours Sepsis New/Unexplained Change in Mental Status Sepsis Action Taken by Nursing Laboratory Data 10/20/24 16:20 10/20/24 16:20 Lab Results 10/20/24 10/20/24 10/20/24 Range/Units 16:20 16:45 19:54 WBC 9.45 (4.8-10.8) K/ul RBC 4.09 L (4.20-5.40) M/uL Hgb 11.8 L (12.0-16.0) g/dl Hct 37.5 (37.0-47.0) % MCV 91.7 (80.0-100.0) fL MCH 28.9 (25.0-34.0) pg MCHC 31.5 L (32.0-36.0) g/dL RDW Std Deviation 43.9 (36.4-46.3) fL RDW Coeff of Delvin 13.2 (11.5-14.5) % Plt Count 231 (130-400) K/uL MPV 11.4 (9.4-12.4) fL Immature Gran % (Auto) 0.6 % Neut % (Auto) 53.2 % Lymph % (Auto) 31.7 % [place] % (Auto) 9.1 % Eos % (Auto) 4.3 % Baso % (Auto) 1.1 % Neut # (Auto) 5.02 (1.40-6.50) K/uL Lymph # (Auto) 3.00 (1.20-3.40) K/uL [place] # (Auto) 0.86 H (0.11-0.59) K/uL Eos # (Auto) 0.41 (0.00-0.50) K/uL Baso # (Auto) 0.10 (0.00-0.20) K/uL Immature Gran # (Auto) 0.06 (0.01-0.20) K/uL Sodium 138 (136-145) mmol/L Potassium 4.4 (3.5-5.1) mmol/L Chloride 103 (98-107) mmol/L Carbon Dioxide 29 (21-32) mmol/L Anion Gap 6 (3-11) BUN 28 H (6-23) mg/dl Creatinine 1.47 H (0.6-1.2) mg/dl Est Cr Clr Drug Dosing 27.8 ml/min eGFR 35.43 BUN/Creatinine Ratio 19.0 (10-20) Glucose 106 H (70-99(Fasting)) mg/dl Calcium 9.3 (8.6-10.3) mg/dl Magnesium 2.0 (1.7-2.4) mg/dl Total Bilirubin 0.2 (0.2-1.0) mg/dl AST 14 (13-39) U/L ALT 12 (7-52) U/L Alkaline Phosphatase 68 (34-104) U/L Troponin I High Sens 8.3 (0-14) pg/ml Total Protein 5.9 L (6.0-8.3) gm/dl Albumin 3.2 L (3.4-5.0) gm/dl Globulin 2.7 (2.5-4.0) gm/dl Albumin/Globulin Ratio 1.2 (0.9-2) TSH 2.400 (0.300-4.500) uIu/ml Urine Color Yellow Urine Appearance Clear (Clear) Urine pH 6.0 (4.5-7.5) Ur Specific Arjay 1.014 (1.000-1.030) Urine Protein Negative (Negative) Urine Glucose (UA) Negative (Negative) Urine Ketones Negative (Negative) Urine Blood Negative (Negative) Urine Nitrite Positive A (Negative) Urine Bilirubin Negative (Negative) Urine Urobilinogen Negative (Negative) Ur Leukocyte Esterase 3+ H (Negative) Urine WBC (Auto) 21-50 H (0-5) /hpf Urine RBC (Auto) 0-2 (0-2) /hpf U Hyaline Cast (Auto) 3-5 H (0-2) /lpf U Epithel Cells (Auto) 3-5 H (0-2) /hpf Urine Bacteria (Auto) 4+ H (None Seen) Urine Comment Adenovirus (PCR) Not Detected (NotDetected) B. pertussis DNA (PCR) Not Detected (NotDetected) B.parapertussis DNA PCR Not Detected (NotDetected) C. pneumoniae DNA (PCR) Not Detected (NotDetected) Coronavirus OC43 (PCR) Not Detected (NotDetected) Coronavirus HKU1 (PCR) Not Detected (NotDetected) Coronavirus 229E (PCR) Not Detected (NotDetected) SARS-CoV-2 (PCR) Not Detected (NotDetected) Coronavirus NL63 (PCR) Not Detected (NotDetected) Human Metapneumovir PCR Not Detected (NotDetected) Influenza Type A (PCR) Not Detected (NotDetected) Influenza Type B (PCR) Not Detected (NotDetected) M. pneumoniae (PCR) Not Detected (NotDetected) Parainfluenza 1 (PCR) Not Detected (NotDetected) Parainfluenza 2 (PCR) Not Detected (NotDetected) Parainfluenza 3 (PCR) Not Detected (NotDetected) Parainfluenza 4 (PCR) Not Detected (NotDetected) RSV (PCR) Not Detected (NotDetected) Entero/Rhino (PCR) Not Detected (NotDetected) Administered Medications Discontinued Medications Ceftriaxone Sodium (Rocephin) 2,000 mg in 50 mls @ 100 mls/hr IV NOW STA Stop: 10/20/24 21:07 Last Infusion: 10/20/24 21:19 Dose: Infused Documented By: Admin: 10/20/24 20:45 Dose: 100 mls/hr Documented By: GLENYS Imaging Data Radiologist's Impression: Chest X-Ray 10/20/24 16:53 Clinical History: Cough and weakness Technique: A frontal view of the chest was obtained Comparison is made to the prior examination dated 06/28/2023 Findings: There are no confluent pulmonary infiltrates. The heart size is within normal limits. No pleural effusion or pneumothorax is seen. There are possible small right upper lobe nodules There is a large hiatal hernia Impression: 1. Large hiatal hernia 2. Possible small right upper lobe nodules. Chest CT could be considered for further evaluation ACT 112: Positive. There are findings on this exam that require communication between the performing entity and the patient following Patient Test Result Information Act ([place] ACT 112) guidelines. Electronically signed by Peewee Peña 10-20-2024 5:[address] 10/20/24 16:53 Clinical History: Weakness Technique: Axial computed tomography images were obtained of the brain without intravenous contrast. Findings: There is diffuse cerebral atrophy, within expected limits for the patient's age. Areas of decreased attenuation are seen within the periventricular white matter, likely representing chronic small vessel ischemic disease. There is no definite sign of acute or old infarction. No intracranial hemorrhage is evident. No definite mass lesion is seen on this noncontrast examination. There is no midline shift or other form of herniation. No hydrocephalus is seen. No fracture is identified. The orbits and the visualized paranasal sinuses appear unremarkable. The mastoid air cells appear clear. Impression: 1. Cerebral atrophy and chronic small vessel ischemic disease 2. Otherwise unremarkable noncontrast CT of the brain Electronically signed by Peewee Peña 10-20-2024 6:[address] 10/20/24 18:00 CT chest without contrast. History: Cough. Weakness. Right upper lobe nodules. Comparison: January 22, 2023. Study report not available at the time of dictation. Technique: Helical CT imaging of the chest performed without IV contrast Dose reduction techniques were achieved by using automatic exposure control and/or adjustment of mA and/or kV according to patient size and/or use of iterative reconstruction technique. Findings: Zipper Joiner film demonstrates retrocardiac density likely representing a hiatal hernia. Lung windows demonstrate moderate subsegmental compressive atelectasis left lower lobe. This is secondary to hiatal hernia. Subsegment atelectasis right lower lobe. Mild bilateral, right greater than left pleural-parenchymal apical scarring. Previously noted scattered elements of ground glass attenuation are no longer present. Soft tissue windows demonstrate heart size to be within normal limits. Mitral valve annular calcifications. Calcified atherosclerotic changes coronary vasculature. Trace pericardial effusion. Calcified atherosclerotic changes thoracic aorta. Further characterization limited on this noncontrast exam. Large sliding-type hiatal hernia. Prominent number small size mediastinal lymph nodes. These are nonspecific. Suspect reactive nodes. Exophytic nodular density left kidney unchanged. Suspect hemorrhagic cyst. Included upper abdomen otherwise within normal limits. Bone windows demonstrate multilevel degenerative changes of the spine. No appreciable interval change. Impression: 1. Large sliding-type hiatal hernia with compressive subsegmental atelectasis on the right and mild subsegmental ectasis on the left. Additional stable chronic pulmonary changes as described above. No appreciated acute process. 2. No additional findings to indicate source of patient's symptoms. Please see above for details. Electronically signed by Ayan Hernandez 10-20-2024 8:15 PM Discharge Plan Visit Data Chief Complaint: Weakness ED Provider: Jose Alberto Cassidy Discharge Problem: Acute UTI, Weakness Patient Disposition: Being Evaluated by Hospitalist Condition: Fair Forms Stand Alone Forms: My [facility] Prescriptions Prescriptions: No Action rosuvastatin [Crestor] 20 mg tablet 20 mg PO DAILY venlafaxine [Effexor XR] 75 mg capsule,extended release 24hr See Rx Instructions .ROUTE .COMPLEX Rx Instructions: Take 75mg w/ 150mg capsule by mouth to equal 225mg once daily lorazepam [Ativan] 1 mg tablet 1 mg PO BID Rx Instructions: TAKES AT 0800 & 1400 quetiapine [Seroquel] 25 mg Tablet 25 mg PO HS acetaminophen [Tylenol] 325 mg Tablet 650 mg PO TID MDD 3 GRAMS APAP/24 HOURS PRN (Reason: PAIN/FEVER) metoprolol succinate 50 mg Tablet Extended Release 24 Hr 50 mg PO BID venlafaxine [Effexor XR] 150 mg Capsule,Extended Release 24hr See Rx Instructions .ROUTE .COMPLEX Rx Instructions: Take 150mg w/ 75mg capsule by mouth to equal 225mg once daily gabapentin 100 mg Capsule 100 mg PO BID oxybutynin chloride 5 mg Tablet 5 mg PO DAILY Systane Complete 0.6 % Drops 1 drp OPB BID multivitamin [Daily-Nanette] Tablet 1 tab PO DAILY amlodipine 2.5 mg tablet 2.5 mg PO DAILY docusate sodium [Colace] 100 mg Capsule 100 mg PO DAILY melatonin 5 mg Tablet 5 mg PO HS sucralfate 1 gram Tablet 1 g PO QID Qty: 120 0RF pantoprazole 40 mg Tablet,Delayed Release (Dr/Ec) 40 mg PO BID Qty: 60 0RF ferrous sulfate 325 mg (65 mg iron) Tablet,Delayed Release (Dr/Ec) 325 mg PO BIDM Qty: 60 0RF Referrals Referrals: Jamin Rashid M.D. [Primary Care Provider] -
[2024-10-20 17:06] LABS: Hematocrit (blood only) 37.5 % (37.0-47.0); Hemoglobin 11.8 g/dl (12.0-16.0); Immature Granulocytes # (auto) 0.06 K/uL (0.01-0.20); Immature Granulocytes % (auto) 0.6 %; Mean Corpuscular Hemoglobin 28.9 pg (25.0-34.0); Mean Corpuscular Volume 91.7 fL (80.0-100.0); Platelet Count 231 K/uL (130-400); RDW Standard Deviation 43.9 fL (36.4-46.3); Red Blood Count 4.09 M/uL (4.20-5.40); White Blood Count 9.45 K/ul (4.8-10.8)
[2024-10-20 17:23] LABS: Alanine Aminotransferase 12.0 U/L (7-52); Albumin Globulin Ratio 1.2 (0.9-2); Alkaline Phosphatase 68.0 U/L (34-104); Anion Gap 6.0 (3-11); Bilirubin,Total 0.2 mg/dl (0.2-1.0); Blood Urea Nitrogen 28.0 mg/dl (6-23); Calcium 9.3 mg/dl (8.6-10.3); Carbon Dioxide 29.0 mmol/L (21-32); Chloride 103.0 mmol/L (98-107); Creatinine Clr Calc Pharmacy 27.8 ml/min; Globulin 2.7 gm/dl (2.5-4.0); Glucose 106.0 mg/dl (70-99(Fasting)); Magnesium 2.0 mg/dl (1.7-2.4); Potassium 4.4 mmol/L (3.5-5.1); Sodium 138.0 mmol/L (136-145); Total Protein 5.9 gm/dl (6.0-8.3)
[2024-10-20 17:39] LABS: Thyroid Stimulating Hormone 2.4 uIu/ml (0.300-4.500)
--- NOTE | 2024-10-20 17:41 | XRay Report ---
Clinical History: Cough and weakness Technique: A frontal view of the chest was obtained Comparison is made to the prior examination dated 06/28/2023 Findings: There are no confluent pulmonary infiltrates. The heart size is within normal limits. No pleural effusion or pneumothorax is seen. There are possible small right upper lobe nodules There is a large hiatal hernia Impression: 1. Large hiatal hernia 2. Possible small right upper lobe nodules. Chest CT could be considered for further evaluation ACT 112: Positive. There are findings on this exam that require communication between the performing entity and the patient following Patient Test Result Information Act ([place] ACT 112) guidelines. Electronically signed by Peewee Peña 10-20-2024 5:41 PM
--- NOTE | 2024-10-20 18:05 | CT Scan Report ---
Clinical History: Weakness Technique: Axial computed tomography images were obtained of the brain without intravenous contrast. Findings: There is diffuse cerebral atrophy, within expected limits for the patient's age. Areas of decreased attenuation are seen within the periventricular white matter, likely representing chronic small vessel ischemic disease. There is no definite sign of acute or old infarction. No intracranial hemorrhage is evident. No definite mass lesion is seen on this noncontrast examination. There is no midline shift or other form of herniation. No hydrocephalus is seen. No fracture is identified. The orbits and the visualized paranasal sinuses appear unremarkable. The mastoid air cells appear clear. Impression: 1. Cerebral atrophy and chronic small vessel ischemic disease 2. Otherwise unremarkable noncontrast CT of the brain Electronically signed by Peewee Peña 10-20-2024 6:04 PM
[2024-10-20 18:09] LABS: Chlamydia pneumoniae PCR Not Detected (NotDetected); Coronavirus 229E PCR Not Detected (NotDetected); Coronavirus CoV-2 (COVID19)PCR Not Detected (NotDetected); Coronavirus HKU1 PCR Not Detected (NotDetected); Coronavirus NL63 PCR Not Detected (NotDetected); Coronavirus OC43PCR Not Detected (NotDetected); Human Metapneumovirus PCR Not Detected (NotDetected); Parainfluenza Virus 1 PCR Not Detected (NotDetected); Parainfluenza Virus 2 PCR Not Detected (NotDetected); Parainfluenza Virus 3 PCR Not Detected (NotDetected); Parainfluenza Virus 4 PCR Not Detected (NotDetected); Respiratory Syncytial VirusPCR Not Detected (NotDetected); Rhinovirus/Enterovirus PCR Not Detected (NotDetected)
--- NOTE | 2024-10-20 20:15 | CT Scan Report ---
CT chest without contrast. History: Cough. Weakness. Right upper lobe nodules. Comparison: January 22, 2023. Study report not available at the time of dictation. Technique: Helical CT imaging of the chest performed without IV contrast Dose reduction techniques were achieved by using automatic exposure control and/or adjustment of mA and/or kV according to patient size and/or use of iterative reconstruction technique. Findings: Setter Machine film demonstrates retrocardiac density likely representing a hiatal hernia. Lung windows demonstrate moderate subsegmental compressive atelectasis left lower lobe. This is secondary to hiatal hernia. Subsegment atelectasis right lower lobe. Mild bilateral, right greater than left pleural-parenchymal apical scarring. Previously noted scattered elements of ground glass attenuation are no longer present. Soft tissue windows demonstrate heart size to be within normal limits. Mitral valve annular calcifications. Calcified atherosclerotic changes coronary vasculature. Trace pericardial effusion. Calcified atherosclerotic changes thoracic aorta. Further characterization limited on this noncontrast exam. Large sliding-type hiatal hernia. Prominent number small size mediastinal lymph nodes. These are nonspecific. Suspect reactive nodes. Exophytic nodular density left kidney unchanged. Suspect hemorrhagic cyst. Included upper abdomen otherwise within normal limits. Bone windows demonstrate multilevel degenerative changes of the spine. No appreciable interval change. Impression: 1. Large sliding-type hiatal hernia with compressive subsegmental atelectasis on the right and mild subsegmental ectasis on the left. Additional stable chronic pulmonary changes as described above. No appreciated acute process. 2. No additional findings to indicate source of patient's symptoms. Please see above for details. Electronically signed by Ayan Hernandez 10-20-2024 8:15 PM
[2024-10-20 20:34] LABS: Appearance Urine Clear (Clear); Bacteria Urine Automated 4+ (None Seen); Glucose Urine UA Negative (Negative); RBC Urine Automated 0-2 /hpf (0-2); WBC Urine Automated 21-50 /hpf (0-5)
[2024-10-20] MEDS: cefTRIAXone SODIUM 2,000 MG/50 ML BAG IV STA (20:45)
--- NOTE | 2024-10-20 22:11 | History & Physical Report ---
Date of Service October 20, 2024 Assessment & Plan (1) Acute UTI: (2) Acute kidney injury superimposed on CKD: (3) Myalgia: Plan The patient is a 84-year-old female resident at [facility], with past medical history including acute GI bleed, general debility, cervical radiculopathy, cervical facet syndrome, left knee DJD, hypertension, constipation, insomnia, bladder spasm, GERD, hyperlipidemia, and depression with anxiety. She presents to the emergency department with reports that 3 days ago she started noticing some decreased energy. Yesterday she began with worsening weakness, and aching all over. Significant findings in the emergency department included a urinalysi s suggestive of UTI, and increased creatinine at 1.47, with base 1.37. From the ED she received the following: Ceftriaxone 2 g IV, and was then referred for evaluation for admission. Acute urinary tract infection- Follow urine culture and sensitivity Ceftriaxone 2 g IV every 24 hours NSS at 80 mL/h x 1 L Most recent infection from 01/23/2023 grew E. coli resistant to ampicillin and Bactrim Acetaminophen 650 mg by mouth every 6 hours as needed for mild pain or fever Zofran 4 mg IV every 6 hours as needed Serial CBC with differential, renal function panel magnesium level Acute kidney injury superimposed on CKD- Creatinine 1.47 on admission with base 1.37 IV fluids as above Repeat laboratories as noted above Hypertension- Continue amlodipine, and metoprolol succinate with hold parameters GERD/history of GI bleeding- Continue pantoprazole and sucralfate Hyperlipidemia- Continue rosuvastatin Depression and anxiety- Continue venlafaxine, melatonin, lorazepam, and quetiapine Bladder spasm- Continue oxybutynin History of Present Illness Chief Complaint: The patient presents to the emergency department with complaint of progressively worsening weakness and aching all over, that began yesterday, preceded by decreasing energy that began about 3 days ago. Primary Care Provider: Jamin Rashid M.D. The patient is a 84-year-old female resident at [facility], with past medical history including acute GI bleed, general debility, cervical radiculopathy, cervical facet syndrome, left knee DJD, hypertension, constipation, insomnia, bladder spasm, GERD, hyperlipidemia, and depression with anxiety. She presents to the emergency department with reports that 3 days ago she started noticing some decreased energy. Yesterday she began with worsening weakness, and aching all over. Significant findings in the emergency department included a urinalysis suggestive of UTI, and increased creatinine at 1.47, with base 1.37. From the ED she received the following: Ceftriaxone 2 g IV, and was then referred for evaluation for admission. Allergies Allergy/AdvReac Type Severity Reaction Status Date / Time tramadol AdvReac Severe Swelling Verified 06/28/23 20:51 of Lip/Tongue/Throat Home Medications Medication Instructions Recorded Confirmed Type lorazepam 1 mg tablet (Ativan) 1 mg PO BID 11/28/20 10/20/24 History venlafaxine 75 mg capsule,extended See Rx Instructions .Route .COMPLEX 11/28/20 10/20/24 History release 24 hr (Effexor XR) rosuvastatin 20 mg tablet (Crestor) 20 mg PO DAILY 03/27/22 10/20/24 History acetaminophen 325 mg tablet 650 mg PO TID PRN PAIN/FEVER 01/22/23 10/20/24 History (Tylenol) gabapentin 100 mg capsule 100 mg PO BID 01/22/23 10/20/24 History metoprolol succinate 50 mg 50 mg PO BID 01/22/23 10/20/24 History tablet,extended release 24 hr oxybutynin chloride 5 mg tablet 5 mg PO DAILY 01/22/23 10/20/24 History propylene glycol 0.6 % eye drops 1 drp OPB BID 01/22/23 10/20/24 History (Systane Complete) quetiapine 25 mg tablet (Seroquel) 25 mg PO HS 01/22/23 10/20/24 History venlafaxine 150 mg See Rx Instructions .Route .COMPLEX 01/22/23 10/20/24 History capsule,extended release 24 hr (Effexor XR) amlodipine 2.5 mg tablet 2.5 mg PO DAILY 06/28/23 10/20/24 History docusate sodium 100 mg capsule 100 mg PO DAILY 06/28/23 10/20/24 History (Colace) melatonin 5 mg tablet 5 mg PO HS 06/28/23 10/20/24 History multivitamin (Daily-Nanette tablet) 1 tab PO DAILY 06/28/23 10/20/24 History ferrous sulfate 325 mg (65 mg 325 mg PO BIDM #60 tabs 07/02/23 10/20/24 Rx iron) tablet,delayed release pantoprazole 40 mg tablet,delayed 40 mg PO BID #60 tabs 07/02/23 10/20/24 Rx release sucralfate 1 gram tablet 1 g PO QID #120 tabs 07/02/23 10/20/24 Rx Past Med/Surg History Problem List (Updated 10/21/24 @ 00:03 by Jovanny Rosa MD) Myalgia Acute kidney injury superimposed on CKD Weakness (Acute) Acute UTI (Acute) JESSICA (acute kidney injury) Shortness of breath (Acute) Acute GI bleeding (Acute) Debility Left leg pain Debility Cervical radiculopathy Cervical facet syndrome Lumbar facet joint syndrome Cervicalgia Bursitis of right hip Left knee DJD Medical History (Updated 10/21/24 @ 00:03 by Jovanny Rosa MD) Hiatal hernia Depression Acute blood loss anemia Anticoagulant long-term use Breast cancer Anxiety Hyperlipidemia Hypertension Cervical stenosis of spinal canal Pulmonary embolism Surgical History History of total hip arthroplasty History of arthroplasty of knee History of lumpectomy Social History Smoking Status: Never smoker Hx Alcohol Use: No Hx Substance Use: No Preferred Language: Spanish Communication Ability: Effective Visual Impairment: Limited Hearing Ability: Normal Manager Data Warehousing Required: No Beliefs That Will Affect Care: None marital status: Current Living Situation: Personal Care Facility Feels Safe at Home: Yes Assistive Devices: Walker and Wheelchair Review of Systems Review of Systems: The patient denies chest pain, palpitations, shortness of breath, dyspnea on exe rtion, cough, lower extremity swelling, sore throat, fevers, chills, sweats, nausea, vomiting, diarrhea , constipation, abdominal pain, pelvic pain, blood in urine or stool, dysuria, urinary frequency or urgency, lightheadedness, dizziness, headache, memory loss, loss of consciousness, rash, abnormal bruising or bleeding, focal weakness, numbness or tingling in arms or legs, generalized arthralgias or myalgias, back or neck pain, or night sweats. The review of systems is otherwise negative other than for that already noted above, and at least 10 systems have been reviewed. Physical Exam Physical Exam: The patient is awake, alert and oriented 3, well developed and well nourished, normocephalic and atraumatic, lying in bed and in no acute distress. HEENT--PERRL, EOMI, mucous membranes and oropharynx mildly dry. Neck--supple. No JVD. No bruits. Thyroid normal, trachea midline, no adenop athy. Heart--normal S1 and S2. No murmurs, rubs or gallops. Lungs--clear bilaterally, no respiratory distress, no accessory muscle use. Abdomen--normal bowel sounds and soft. Nontender. Nondistended, no hernias or masses, no organomegaly. Extremities--no cyanosis or clubbing. No edema. There are good distal pulses b/l. Dermatologic--normal skin turgor, normal color, no abnormal lymph nodes, no r kathleen. Neurologic--cranial nerves II through XII grossly intact. Rheumatologic--normal range of motion. Psychiatric--normal affect. Results & Data Results & Data Vital Signs (Past 12 Hours) Vital Signs Temp Pulse Pulse Resp BP BP Pulse Ox 10/20/24 21:05 73 20 172/86 H 95 10/20/24 20:44 75 10/20/24 19:11 77 20 174/99 H 94 10/20/24 17:14 72 10/20/24 16:49 36.7 C 74 15 158/89 H 95 O2 Del Method 10/20/24 21:05 Room Air 10/20/24 20:44 10/20/24 19:11 Room Air 10/20/24 17:14 10/20/24 16:49 Room Air Laboratory Results Laboratory Results WBC 9.45 K/ul (4.8-10.8) 10/20/24 16:20 RBC 4.09 M/uL (4.20-5.40) L 10/20/24 16:20 Hgb 11.8 g/dl (12.0-16.0) L 10/20/24 16:20 Hct 37.5 % (37.0-47.0) 10/20/24 16:20 MCV 91.7 fL (80.0-100.0) 10/20/24 16:20 MCH 28.9 pg (25.0-34.0) 10/20/24 16:20 MCHC 31.5 g/dL (32.0-36.0) L 10/20/24 16:20 RDW Std Deviation 43.9 fL (36.4-46.3) 10/20/24 16:20 RDW Coeff of Delvin 13.2 % (11.5-14.5) 10/20/24 16:20 Plt Count 231 K/uL (130-400) 10/20/24 16:20 MPV 11.4 fL (9.4-12.4) 10/20/24 16:20 Immature Gran % (Auto) 0.6 % 10/20/24 16:20 Neut % (Auto) 53.2 % 10/20/24 16:20 Lymph % (Auto) 31.7 % 10/20/24 16:20 Ward % (Auto) 9.1 % 10/20/24 16:20 Eos % (Auto) 4.3 % 10/20/24 16:20 Baso % (Auto) 1.1 % 10/20/24 16:20 Neut # (Auto) 5.02 K/uL (1.40-6.50) 10/20/24 16:20 Lymph # (Auto) 3.00 K/uL (1.20-3.40) 10/20/24 16:20 Ward # (Auto) 0.86 K/uL (0.11-0.59) H 10/20/24 16:20 Eos # (Auto) 0.41 K/uL (0.00-0.50) 10/20/24 16:20 Baso # (Auto) 0.10 K/uL (0.00-0.20) 10/20/24 16:20 Immature Gran # (Auto) 0.06 K/uL (0.01-0.20) 10/20/24 16:20 Sodium 138 mmol/L (136-145) 10/20/24 16:20 Potassium 4.4 mmol/L (3.5-5.1) 10/20/24 16:20 Chloride 103 mmol/L (98-107) 10/20/24 16:20 Carbon Dioxide 29 mmol/L (21-32) 10/20/24 16:20 Anion Gap 6 (3-11) 10/20/24 16:20 BUN 28 mg/dl (6-23) H 10/20/24 16:20 Creatinine 1.47 mg/dl (0.6-1.2) H 10/20/24 16:20 Est Cr Clr Drug Dosing 27.8 ml/min 10/20/24 16:20 eGFR 35.43 10/20/24 16:20 BUN/Creatinine Ratio 19.0 (10-20) 10/20/24 16:20 Glucose 106 mg/dl (70-99(Fasting)) H 10/20/24 16:20 Calcium 9.3 mg/dl (8.6-10.3) 10/20/24 16:20 Magnesium 2.0 mg/dl (1.7-2.4) 10/20/24 16:20 Total Bilirubin 0.2 mg/dl (0.2-1.0) 10/20/24 16:20 AST 14 U/L (13-39) 10/20/24 16:20 ALT 12 U/L (7-52) 10/20/24 16:20 Alkaline Phosphatase 68 U/L (34-104) 10/20/24 16:20 Troponin I High Sens 8.3 pg/ml (0-14) 10/20/24 16:20 Total Protein 5.9 gm/dl (6.0-8.3) L 10/20/24 16:20 Albumin 3.2 gm/dl (3.4-5.0) L 10/20/24 16:20 Globulin 2.7 gm/dl (2.5-4.0) 10/20/24 16:20 Albumin/Globulin Ratio 1.2 (0.9-2) 10/20/24 16:20 TSH 2.400 uIu/ml (0.300-4.500) 10/20/24 16:20 Urine Color Yellow 10/20/24 19:54 Urine Appearance Clear (Clear) 10/20/24 19:54 Urine pH 6.0 (4.5-7.5) 10/20/24 19:54 Ur Specific [place] 1.014 (1.000-1.030) 10/20/24 19:54 Urine Protein Negative (Negative) 10/20/24 19:54 Urine Glucose (UA) Negative (Negative) 10/20/24 19:54 Urine Ketones Negative (Negative) 10/20/24 19:54 Urine Blood Negative (Negative) 10/20/24 19:54 Urine Nitrite Positive (Negative) A 10/20/24 19:54 Urine Bilirubin Negative (Negative) 10/20/24 19:54 Urine Urobilinogen Negative (Negative) 10/20/24 19:54 Ur Leukocyte Esterase 3+ (Negative) H 10/20/24 19:54 Urine WBC (Auto) 21-50 /hpf (0-5) H 10/20/24 19:54 Urine RBC (Auto) 0-2 /hpf (0-2) 10/20/24 19:54 U Hyaline Cast (Auto) 3-5 /lpf (0-2) H 10/20/24 19:54 U Epithel Cells (Auto) 3-5 /hpf (0-2) H 10/20/24 19:54 Urine Bacteria (Auto) 4+ (None Seen) H 10/20/24 19:54 Urine Comment 10/20/24 19:54 Nasal Screen MRSA (PCR) Negative (Negative) 10/20/24 22:23 Adenovirus (PCR) Not Detected (NotDetected) 10/20/24 16:45 B. pertussis DNA (PCR) Not Detected (NotDetected) 10/20/24 16:45 B.parapertussis DNA PCR Not Detected (NotDetected) 10/20/24 16:45 C. pneumoniae DNA (PCR) Not Detected (NotDetected) 10/20/24 16:45 Coronavirus OC43 (PCR) Not Detected (NotDetected) 10/20/24 16:45 Coronavirus HKU1 (PCR) Not Detected (NotDetected) 10/20/24 16:45 Coronavirus 229E (PCR) Not Detected (NotDetected) 10/20/24 16:45 SARS-CoV-2 (PCR) Not Detected (NotDetected) 10/20/24 16:45 Coronavirus NL63 (PCR) Not Detected (NotDetected) 10/20/24 16:45 Human Metapneumovir PCR Not Detected (NotDetected) 10/20/24 16:45 Influenza Type A (PCR) Not Detected (NotDetected) 10/20/24 16:45 Influenza Type B (PCR) Not Detected (NotDetected) 10/20/24 16:45 M. pneumoniae (PCR) Not Detected (NotDetected) 10/20/24 16:45 Parainfluenza 1 (PCR) Not Detected (NotDetected) 10/20/24 16:45 Parainfluenza 2 (PCR) Not Detected (NotDetected) 10/20/24 16:45 Parainfluenza 3 (PCR) Not Detected (NotDetected) 10/20/24 16:45 Parainfluenza 4 (PCR) Not Detected (NotDetected) 10/20/24 16:45 RSV (PCR) Not Detected (NotDetected) 10/20/24 16:45 Entero/Rhino (PCR) Not Detected (NotDetected) 10/20/24 16:45 Impressions Chest X-Ray 10/20/24 16:53 Clinical History: Cough and weakness Technique: A frontal view of the chest was obtained Comparison is made to the prior examination dated 06/28/2023 Findings: There are no confluent pulmonary infiltrates. The heart size is within normal limits. No pleural effusion or pneumothorax is seen. There are possible small right upper lobe nodules There is a large hiatal hernia Impression: 1. Large hiatal hernia 2. Possible small right upper lobe nodules. Chest CT could be considered for further evaluation ACT 112: Positive. There are findings on this exam that require communication between the performing entity and the patient following Patient Test Result Information Act ([place] ACT 112) guidelines. Electronically signed by Peewee Peña 10-20-2024 5:[address] 10/20/24 16:53 Clinical History: Weakness Technique: Axial computed tomography images were obtained of the brain without intravenous contrast. Findings: There is diffuse cerebral atrophy, within expected limits for the patient's age. Areas of decreased attenuation are seen within the periventricular white matter, likely representing chronic small vessel ischemic disease. There is no definite sign of acute or old infarction. No intracranial hemorrhage is evident. No definite mass lesion is seen on this noncontrast examination. There is no midline shift or other form of herniation. No hydrocephalus is seen. No fracture is identified. The orbits and the visualized paranasal sinuses appear unremarkable. The mastoid air cells appear clear. Impression: 1. Cerebral atrophy and chronic small vessel ischemic disease 2. Otherwise unremarkable noncontrast CT of the brain Electronically signed by Peewee Peña 09-12-2025 6:[address] 10/20/24 18:00 CT chest without contrast. History: Cough. Weakness. Right upper lobe nodules. Comparison: January 22, 2023. Study report not available at the time of dictation. Technique: Helical CT imaging of the chest performed without IV contrast Dose reduction techniques were achieved by using automatic exposure control and/or adjustment of mA and/or kV according to patient size and/or use of iterative reconstruction technique. Findings: Solar Project Engineer film demonstrates retrocardiac density likely representing a hiatal hernia. Lung windows demonstrate moderate subsegmental compressive atelectasis left lower lobe. This is secondary to hiatal hernia. Subsegment atelectasis right lower lobe. Mild bilateral, right greater than left pleural-parenchymal apical scarring. Previously noted scattered elements of ground glass attenuation are no longer present. Soft tissue windows demonstrate heart size to be within normal limits. Mitral valve annular calcifications. Calcified atherosclerotic changes coronary vasculature. Trace pericardial effusion. Calcified atherosclerotic changes thoracic aorta. Further characterization limited on this noncontrast exam. Large sliding-type hiatal hernia. Prominent number small size mediastinal lymph nodes. These are nonspecific. Suspect reactive nodes. Exophytic nodular density left kidney unchanged. Suspect hemorrhagic cyst. Included upper abdomen otherwise within normal limits. Bone windows demonstrate multilevel degenerative changes of the spine. No appreciable interval change. Impression: 1. Large sliding-type hiatal hernia with compressive subsegmental atelectasis on the right and mild subsegmental ectasis on the left. Additional stable chronic pulmonary changes as described above. No appreciated acute process. 2. No additional findings to indicate source of patient's symptoms. Please see above for details. Electronically signed by Ayan Hernandez 10-20-2024 8:15 PM Code Status & VTE Plan Code Status DNR/DNI VTE Prophylaxis Plan VTE Prophylaxis will be ordered: Yes PG Care Time/CCT Total # of Minutes Spent Total Time Spent with Patient: Total time spent is greater than 50% in coordination of care (as documented) at patient's floor/unit and/or counseling patient: Coding Level of Care Code 20116 INT INP/OBS CARE 3/75MIN Diagnoses Acute UTI N39.0 Acute kidney injury superimposed on CKD N17.9; N18.9 Myalgia M79.10
[2024-10-20] MEDS: ACETAMINOPHEN 325 MG TAB PO STA (22:21)
[2024-10-20] MEDS: SODIUM CHLORIDE 0.9% 1,000 ML IV SCH (23:06)
[2024-10-20] MEDS ORDERED: ACETAMINOPHEN 325 MG TAB PO PRN (23:56)
[2024-10-21] MEDS ORDERED: ONDANSETRON INJ 2 MG/ML 2 ML VIAL IV PRN (03:54)
[2024-10-21] MEDS: VENLAFAXINE HCL XR 75 MG CAPXR PO SCH (08:35)
[2024-10-21] MEDS: ROSUVASTATIN CALCIUM 20 MG TAB PO SCH (08:35)
[2024-10-21] MEDS: MULTIVITAMIN TAB PO SCH (08:35)
[2024-10-21] MEDS: METOPROLOL SUCC 50MG EXT REL TAB PO SCH (08:35)
[2024-10-21] MEDS: SUCRALFATE 1 GM TAB PO SCH (08:36)
[2024-10-21] MEDS: FERROUS SULFATE 325 MG TAB PO SCH (08:36)
[2024-10-21] MEDS: GABAPENTIN 100 MG CAP PO SCH (08:37)
[2024-10-21] MEDS: DOCUSATE SODIUM 100 MG CAP PO SCH (08:39)
[2024-10-21] MEDS: LORazepam 1 MG TAB PO SCH (08:39)
[2024-10-21] MEDS: ARTIFICIAL TEARS OP SCH (08:43)
[2024-10-21 09:51] LABS: Hematocrit (blood only) 38.4 % (37.0-47.0); Hemoglobin 12.4 g/dl (12.0-16.0); Immature Granulocytes # (auto) 0.04 K/uL (0.01-0.20); Immature Granulocytes % (auto) 0.4 %; Mean Corpuscular Hemoglobin 28.8 pg (25.0-34.0); Mean Corpuscular Volume 89.1 fL (80.0-100.0); Platelet Count 223 K/uL (130-400); RDW Standard Deviation 42.6 fL (36.4-46.3); Red Blood Count 4.31 M/uL (4.20-5.40); White Blood Count 10.77 K/ul (4.8-10.8)
[2024-10-21 10:05] LABS: Anion Gap 7.0 (3-11); Blood Urea Nitrogen 21.0 mg/dl (6-23); Calcium 9.3 mg/dl (8.6-10.3); Carbon Dioxide 27.0 mmol/L (21-32); Chloride 104.0 mmol/L (98-107); Creatinine Clr Calc Pharmacy 33.8 ml/min; Glucose 151.0 mg/dl (70-99(Fasting)); Magnesium 1.7 mg/dl (1.7-2.4); Potassium 4.1 mmol/L (3.5-5.1); Sodium 138.0 mmol/L (136-145)
--- NOTE | 2024-10-21 12:52 | Hospitalist Progress Note ---
Date of Service October 21, 2024 Assessment & Plan (1) Acute UTI: (2) Generalized weakness: (3) Myalgia: Plan This patient is an 84-year-old female resident at [facility], with a H/O GI bleed, iron deficiency anemia, large hiatal hernia with GERD, PE no longer on anticoagulation, depression/anxiety, HTN, HLD, neuropathy, OAB, general debility, cervical radiculopathy, cervical facet syndrome, left knee DJD, constipation, and insomnia, who presents with worsening body aches, generalized weakness, found to have a UTI. #UTI/generalized weakness-UA abnormal, urine culture growing E. coli, sensitivities pending. No evidence of sepsis. Already improving and weakness is improving. Worked with PT and is able to ambulate with disposition back to personal-retirement -Follow urine culture for sensitivities but most likely will be sensitive to third-generation cephalosporin -Continue ceftriaxone 2 g IV every 24 hours -Follow CBC, BMP #CKD stage III-creatinine fairly stable and at baseline even on admission at 1.4, no evidence of JESSICA. Creatinine now 1.19 after IV fluid hydration -Follow BMP #HTN/HLD-BPs are somewhat elevated -Continue amlodipine, and metoprolol succinate with hold parameters - Continue rosuvastatin - Continue to monitor blood pressures #Large hiatal hernia/GERD/history of GI bleeding-no acute issues Continue pantoprazole and sucralfate #Depression and anxiety-no acute issues Continue venlafaxine, melatonin, lorazepam, and quetiapine #Neuropathy-no acute issues - Continue home gabapentin #Overactive bladder-with current UTI although no history of recurrence of such UTIs -Continue oxybutynin with caution in the setting of UTI-will hold for now DVT prophylaxis-has a history of PE-add Lovenox SQ Disposition-continued stay, likely discharge back to personal-retirement on 10/22 once urine culture results Admission and Anticipated Discharge Date Admission Date: October 20, 2024 Anticipated date of discharge: 10/22/24 Subjective Patient reports feeling better, stronger, ambulated with PT and was cleared to go back to personal-retirement. She initially did not want to have labs drawn or take any medications this morning but her stepson convinced her to be cooperative with her care. She denies any other concerns. No abdominal pains. Moved her bowels this morning. Telemetry is normal sinus rhythm with rates in the 70s to 80s Physical Exam Constitutional: WD/WN, vitals as above Respiratory: normal respiratory effort, lungs clear to auscultation Cardiovascular: RRR, no murmur, no edema Gastrointestinal (Abdomen): normal bowel sounds, soft, nontender, no hepatosplenomegaly Psychiatric: A+Ox3, euthymic affect Results & Data Results & Data Vital Signs (Past 12 Hours) Vital Signs Temp Pulse Pulse Resp BP Pulse Ox Pulse Ox 10/21/24 11:25 36.8 C 90 20 158/87 H 94 10/21/24 10:09 80 10/21/24 04:08 10/21/24 04:08 96 10/21/24 04:08 37.0 C 77 18 177/76 H 95 10/21/24 02:30 36.6 C 18 95 10/21/24 01:00 36.7 C 77 20 170/82 H 94 O2 Del Method O2 Del Method 10/21/24 11:25 Room Air 10/21/24 10:09 10/21/24 04:08 Room Air 10/21/24 04:08 Room Air 10/21/24 04:08 Room Air 10/21/24 02:30 Room Air 10/21/24 01:00 Room Air Laboratory Results CBC, BMP, magnesium, phosphorus reviewed UA and urine culture reviewed PG Care Time/CCT Total # of Minutes Spent Total Time Spent with Patient: Total time spent is greater than 50% in coordination of care (as documented) at patient's floor/unit and/or counseling patient: Coding Level of Care Code 15492 SUB INP/OBS CARE 2/35MIN Diagnoses Acute UTI N39.0 Generalized weakness R53.1 Myalgia M79.10
[2024-10-21] MEDS: ACETAMINOPHEN 325 MG TAB PO PRN (13:38)
[2024-10-21] MEDS: MELATONIN 3 MG TAB PO SCH (20:29)
[2024-10-21] MEDS: cefTRIAXone SODIUM 2,000 MG/50 ML BAG IV SCH (20:33)
[2024-10-22 07:34] LABS: Hematocrit (blood only) 39.9 % (37.0-47.0); Hemoglobin 13.1 g/dl (12.0-16.0); Immature Granulocytes # (auto) 0.06 K/uL (0.01-0.20); Immature Granulocytes % (auto) 0.5 %; Mean Corpuscular Hemoglobin 29.6 pg (25.0-34.0); Mean Corpuscular Volume 90.1 fL (80.0-100.0); Platelet Count 219 K/uL (130-400); RDW Standard Deviation 43.2 fL (36.4-46.3); Red Blood Count 4.43 M/uL (4.20-5.40); White Blood Count 11.85 K/ul (4.8-10.8)
[2024-10-22 07:54] VITALS: RESP 16
[2024-10-22 08:13] LABS: Anion Gap 8.0 (3-11); Blood Urea Nitrogen 19.0 mg/dl (6-23); Calcium 9.7 mg/dl (8.6-10.3); Carbon Dioxide 28.0 mmol/L (21-32); Chloride 104.0 mmol/L (98-107); Creatinine Clr Calc Pharmacy 32.2 ml/min; Glucose 124.0 mg/dl (70-99(Fasting)); Potassium 4.2 mmol/L (3.5-5.1); Sodium 140.0 mmol/L (136-145)
--- NOTE | 2024-10-22 09:39 | Discharge Summary ---
Discharge Summary Date of Service October 22, 2024 Principal Dx & Hospital Course #1 = Principal Diagnosis (1) Acute UTI: (2) Generalized weakness: (3) Myalgia: Plan [place] 84[place] [facility] [place]O GI bleed, iron deficiency anemia, large hiatal hernia with GERD, PE no longer on anticoagulation, depression/anxiety, HTN, HLD, neuropathy, OAB, general debility, cervical radiculopathy, cervical facet syndrome, left knee DJD, constipation, and insomnia, who presents with worsening body aches, generalized weakness, found to have a UTI. #UTI/generalized weakness-UA abnormal, urine culture growing E. coli, sensitivities pending. No evidence of sepsis. Already improving and weakness is improving. Worked with PT and is able to ambulate with disposition back to [facility] -Follow urine culture for sensitivities but most likely will be sensitive to third-generation cephalosporin -Continue ceftriaxone 2 g IV every 24 hours -Follow CBC, BMP #CKD stage III-creatinine fairly stable and at baseline even on admission at 1.4, no evidence of JESSICA. Creatinine now 1.19 after IV fluid hydration -Follow BMP #HTN/HLD-BPs are somewhat elevated -Continue amlodipine, and metoprolol succinate with hold parameters - Continue rosuvastatin - Continue to monitor blood pressures #Large hiatal hernia/GERD/history of GI bleeding-no acute issues Continue pantoprazole and sucralfate #Depression and anxiety-no acute issues Continue venlafaxine, melatonin, lorazepam, and quetiapine #Neuropathy-no acute issues - Continue home gabapentin #Overactive bladder-with current UTI although no history of recurrence of such UTIs -Continue oxybutynin with caution in the setting of UTI-will hold for now DVT prophylaxis-has a history of PE-add Lovenox SQ Disposition-continued stay, likely discharge back to [facility] on 10/22 once urine culture results Admission HPI Per Admitting Provider The patient is a 84-year-[place] [facility] [place] past medical history including acute GI bleed, general debility, cervical radiculopathy, cervical facet syndrome, left knee DJD, hypertension, constipation, insomnia, bladder spasm, GERD, hyperlipidemia, and depression with anxiety. She presents to the emergency department with reports that 3 days ago she started noticing some decreased energy. Yesterday she began with worsening weakness, and aching all over. Significant findings in the emergency department included a urinalysis suggestive of UTI, and increased creatinine at 1.47, with base 1.37. From the ED she received the following: Ceftriaxone 2 g IV, and was then referred for evaluation for admission. Discharge Exam Constitutional WD/WN, vitals as above Respiratory normal respiratory effort, lungs clear to auscultation Cardiovascular RRR, no murmur, no edema Gastrointestinal (Abdomen) normal bowel sounds, soft, nontender, no hepatosplenomegaly Psychiatric A+Ox3, euthymic affect Discharge Plan Discharge Items Patient Disposition: Personal Half-Way Reason For Visit: UTI, JESSICA ON CKD, WEAKNESS Discharge Diagnosis: Urinary tract infection Generalized weakness Condition on Discharge: Good Activity: Resume your previous activity Non-emergency contact: Primary Care Provider Call non-emergency contact if: you have any medication questions and your symptoms worsen Follow-up/Referrals: Jamin Rashid M.D. [Primary Care Provider] - (Follow-up within 1-2 weeks) Diet: Heart Healthy Addtl Attending Provider Instructions: Please finish out 5 more days of the antibiotic called Augmentin for your urinary tract infection. It is recommended that you stop taking oxybutynin as this can lead to retention of urine and urinary tract infections like the one you had. Pending Studies at Discharge: No Stand-Alone Forms: My [facility] Skilled Items Patient informed of condition?: Yes DNR: Yes Discharge Level of Care: Other Communicable Disease: No Discharge Prognosis: Improving Lines: None Urinary Catheter: No Medications and DC Order Prescriptions: New amoxicillin-pot clavulanate 500-125 mg tablet 1 tab PO BID Qty: 10 0RF Continued rosuvastatin [Crestor] 20 mg tablet 20 mg PO DAILY venlafaxine [Effexor XR] 75 mg capsule,extended release 24hr See Rx Instructions .ROUTE .COMPLEX Rx Instructions: Take 75mg w/ 150mg capsule by mouth to equal 225mg once daily lorazepam [Ativan] 1 mg tablet 1 mg PO BID Rx Instructions: TAKES AT 0800 & 1400 quetiapine [Seroquel] 25 mg Tablet 25 mg PO HS acetaminophen [Tylenol] 325 mg Tablet 650 mg PO TID MDD 3 GRAMS APAP/24 HOURS PRN (Reason: PAIN/FEVER) metoprolol succinate 50 mg Tablet Extended Release 24 Hr 50 mg PO BID venlafaxine [Effexor XR] 150 mg Capsule,Extended Release 24hr See Rx Instructions .ROUTE .COMPLEX Rx Instructions: Take 150mg w/ 75mg capsule by mouth to equal 225mg once daily gabapentin 100 mg Capsule 100 mg PO BID Systane Complete 0.6 % Drops 1 drp OPB BID multivitamin [Daily-Nanette] Tablet 1 tab PO DAILY amlodipine 2.5 mg tablet 2.5 mg PO DAILY docusate sodium [Colace] 100 mg Capsule 100 mg PO DAILY melatonin 5 mg Tablet 5 mg PO HS sucralfate 1 gram Tablet 1 g PO QID Qty: 120 0RF pantoprazole 40 mg Tablet,Delayed Release (Dr/Ec) 40 mg PO BID Qty: 60 0RF ferrous sulfate 325 mg (65 mg iron) Tablet,Delayed Release (Dr/Ec) 325 mg PO BIDM Qty: 60 0RF Discontinued oxybutynin chloride 5 mg Tablet 5 mg PO DAILY Admission Data Admit Date/Time: 10/20/24 22:10 Attending Provider: Deborah Cisneros Admit Provider: Jovanny Rosa Primary Care Provider: Jamin Rashid Other Providers: Jovanny Rosa Hospital Stay Data Consultations 10/20/24 21:20 ED Decision to Admit Stat Diagnostic Imagining Performed 10/20/24 16:53 CT head/brain wo con Stat 10/20/24 18:00 CT chest diagnostic wo con Stat Pending Results Patient Have Any Pending Studies at Discharge: No Discharge Instructions Given to Patient (Per Discharging Provider) Please finish out 5 more days of the antibiotic called Augmentin for your urinary tract infection. It is recommended that you stop taking oxybutynin as this can lead to retention of urine and urinary tract infections like the one you had. Coding Diagnoses Acute UTI N39.0 Generalized weakness R53.1 Myalgia M79.10
--- NOTE | 2024-10-22 15:31 | Hospitalist Progress Note ---
Date of Service October 22, 2024 Assessment & Plan (1) Acute UTI: (2) Generalized weakness: (3) Myalgia: Plan This patient is an 84-year-old female resident at [facility], with a H/O GI bleed, iron deficiency anemia, large hiatal hernia with GERD, PE no longer on anticoagulation, depression/anxiety, HTN, HLD, neuropathy, OAB, general debility, cervical radiculopathy, cervical facet syndrome, left knee DJD, constipation, and insomnia, who presents with worsening body aches, generalized weakness, found to have a UTI. #UTI/generalized weakness-UA abnormal, urine culture growing E. coli, pansensitive. No evidence of sepsis. Overall much improved. Worked with PT and is recommended to go back to [facility] although her [facility]itentiary is concerned about her recent decline and inability to perform transfers to her wheelchair very well. Will have PT reevaluate - Change ceftriaxone 2 g IV every 24 hours to Augmentin 500/125 mg p.o. twice daily x 5 more days #CKD stage III-creatinine fairly stable and at baseline even on admission at 1.4, no evidence of JESSICA. Creatinine now 1.19 after IV fluid hydration -Follow renal function as an outpatient - Avoid nephrotoxins and renally dose medications when appropriate #HTN/HLD-BPs are somewhat elevated -Continue amlodipine, and metoprolol succinate with hold parameters - Continue rosuvastatin - Continue to monitor blood pressures as an outpatient #Large hiatal hernia/GERD/history of GI bleeding-no acute issues Continue pantoprazole and sucralfate #Depression and anxiety-no acute issues Continue venlafaxine, melatonin, lorazepam, and quetiapine #Neuropathy-no acute issues - Continue home gabapentin #Overactive bladder-with current UTI although no history of recurrence of such UTIs - Recommend discontinuing oxybutynin in the setting of UTI DVT prophylaxis-has a history of PE-add Lovenox SQ Disposition-stable for discharge to [facility] but now personal-penitentiary is recommending a short term rehab stay prior to return to improve her ability to do transfers to wheelchair. Discussed with lead case manager Admission and Anticipated Discharge Date Admission Date: October 20, 2024 Subjective Patient has no complaints. Denies abdominal pain or nausea. She is moving her bowels and eating. I discussed her care with the lead case manageractivity manager Exam Constitutional: WD/WN, vitals as above Respiratory: normal respiratory effort, lungs clear to auscultation Cardiovascular: RRR, no murmur, no edema Gastrointestinal (Abdomen): normal bowel sounds, soft, nontender, no hepatosplenomegaly Psychiatric: A+Ox3, euthymic affect Results & Data Results & Data Vital Signs (Past 12 Hours) Vital Signs Temp Pulse Resp BP Pulse Ox O2 Del Method O2 Del Method 10/22/24 07:54 36.6 C 82 16 169/90 H 95 Room Air 10/22/24 04:00 Nasal Cannula Laboratory Results CBC, BMP, urine culture reviewed PG Care Time/CCT Total # of Minutes Spent Total Time Spent with Patient: Total time spent is greater than 50% in coordination of care (as documented) at patient's floor/unit and/or counseling patient: Coding Level of Care Code 61911 SUB INP/OBS CARE 03/04MIN Diagnoses Acute UTI N39.0 Generalized weakness R53.1 Myalgia M79.10
[2024-10-22] MEDS ORDERED: AMOXICILLIN/CLAVULANATE 875 MG TAB PO SCH (17:00)
[2024-10-22] MEDS: ENOXAPARIN INJ 30 MG/0.3 ML SYR SQ SCH (17:32)
[2024-10-22] MEDS: AMOXICILLIN/CLAVULANATE 500 MG TAB PO SCH (17:33)
--- NOTE | 2024-10-23 12:56 | Electrocardiogram Report ---
Test Reason : Blood Pressure : */* mmHG Vent. Rate : 78 BPM Atrial Rate : 78 BPM P-R Int : 144 ms QRS Dur : 78 ms QT Int : 392 ms P-R-T Axes : -7 -13 -32 degrees QTcB Int : 446 ms Sinus rhythm with Premature atrial complexes Inferior infarct , age undetermined Abnormal ECG When compared with ECG of 28-Jun-2023 15:03, Premature atrial complexes are now Present Inferior infarct is now Present T wave inversion now evident in Inferior leads Confirmed by Pete Monk ([id number]) on 10/23/2024 12:55:56 PM Referred By: [facility] Confirmed By: Pete Monk
--- NOTE | 2024-10-23 13:29 | Discharge Summary ---
Discharge Summary Date of Service October 23, 2024 Principal Dx & Hospital Course #1 = Principal Diagnosis (1) Acute UTI: (2) Generalized weakness: (3) Myalgia: Plan This patient is an 84-year-old female resident at [facility], with a H/O GI bleed, iron deficiency anemia, large hiatal hernia with GERD, PE no longer on anticoagulation, depression/anxiety, HTN, HLD, neuropathy, OAB, general debility, cervical radiculopathy, cervical facet syndrome, left knee DJD, constipation, and insomnia, who presents with worsening body aches, generalized weakness, found to have a UTI. #UTI/generalized weakness-UA abnormal, urine culture growing E. coli, pansensitive. No evidence of sepsis. Overall much improved. Worked with PT and is recommended to go back to personal-residential - She received 2 doses of ceftriaxone 2 g IV every 24 hours and then transitioned to Augmentin 500/125 mg p.o. twice daily to finish out a 7-day course after discharge - Recommended discontinuing oxybutynin in setting of UTI #CKD stage III-creatinine fairly stable and at baseline even on admission at 1.4, no evidence of JESSICA. Creatinine now 1.19 after IV fluid hydration -Follow renal function as an outpatient - Avoid nephrotoxins and renally dose medications when appropriate #HTN/HLD-BPs are somewhat elevated -Continue amlodipine, and metoprolol succinate with hold parameters - Continue rosuvastatin - Continue to monitor blood pressures as an outpatient #Large hiatal hernia/GERD/history of GI bleeding-no acute issues Continue pantoprazole and sucralfate #Depression and anxiety-no acute issues Continue venlafaxine, melatonin, lorazepam, and quetiapine #Neuropathy-no acute issues - Continue home gabapentin #Overactive bladder-with current UTI although no history of recurrence of such UTIs - Recommend discontinuing oxybutynin in the setting of UTI DVT prophylaxis-has a history of PE-she was treated with Lovenox SQ Disposition-stable for discharge to personal-residential Notes For Next Care Provider None Medication Changes From Visit Added Augmentin 500/125 mg p.o. twice daily x 3 more days Discharge Exam Constitutional WD/WN, vitals as above Neck trachea midline, no thyromegaly Respiratory normal respiratory effort, lungs clear to auscultation Cardiovascular RRR, no murmur, no edema Chest (Breasts) Chest: normal inspection of chest Gastrointestinal (Abdomen) normal bowel sounds, soft, nontender, no hepatosplenomegaly Skin no rashes, warm and dry Neurologic moves all extremities and awake; no focal motor deficits Psychiatric A+Ox3, euthymic affect Discharge Plan Discharge Items Patient Disposition: Personal Longterm Reason For Visit: UTI, JESSICA ON CKD, WEAKNESS Discharge Diagnosis: Urinary tract infection Generalized weakness Condition on Discharge: Good Activity: Resume your previous activity Non-emergency contact: Primary Care Provider Call non-emergency contact if: you have any medication questions and your symptoms worsen Follow-up/Referrals: Jamin Rashid M.D. [Primary Care Provider] - (Follow-up within 1-2 weeks) Diet: Heart Healthy Addtl Attending Provider Instructions: Please finish out 3 more days of the antibiotic called Augmentin for your urinary tract infection. It is recommended that you stop taking oxybutynin as this can lead to retention of urine and urinary tract infections like the one you had. Pending Studies at Discharge: No Stand-Alone Forms: My [facility] Skilled Items Patient informed of condition?: Yes DNR: Yes Discharge Level of Care: Other Communicable Disease: No Discharge Prognosis: Improving Lines: None Urinary Catheter: No Medications and DC Order Prescriptions: New amoxicillin-pot clavulanate 500-125 mg Tablet 1 tab PO BIDM Qty: 6 0RF Continued rosuvastatin [Crestor] 20 mg tablet 20 mg PO DAILY venlafaxine [Effexor XR] 75 mg capsule,extended release 24hr See Rx Instructions .ROUTE .COMPLEX Rx Instructions: Take 75mg w/ 150mg capsule by mouth to equal 225mg once daily lorazepam [Ativan] 1 mg tablet 1 mg PO BID Rx Instructions: TAKES AT 0800 & 1400 quetiapine [Seroquel] 25 mg Tablet 25 mg PO HS acetaminophen [Tylenol] 325 mg Tablet 650 mg PO TID MDD 3 GRAMS APAP/24 HOURS PRN (Reason: PAIN/FEVER) metoprolol succinate 50 mg Tablet Extended Release 24 Hr 50 mg PO BID venlafaxine [Effexor XR] 150 mg Capsule,Extended Release 24hr See Rx Instructions .ROUTE .COMPLEX Rx Instructions: Take 150mg w/ 75mg capsule by mouth to equal 225mg once daily gabapentin 100 mg Capsule 100 mg PO BID Systane Complete 0.6 % Drops 1 drp OPB BID multivitamin [Daily-Nanette] Tablet 1 tab PO DAILY amlodipine 2.5 mg tablet 2.5 mg PO DAILY docusate sodium [Colace] 100 mg Capsule 100 mg PO DAILY melatonin 5 mg Tablet 5 mg PO HS sucralfate 1 gram Tablet 1 g PO QID Qty: 120 0RF pantoprazole 40 mg Tablet,Delayed Release (Dr/Ec) 40 mg PO BID Qty: 60 0RF ferrous sulfate 325 mg (65 mg iron) Tablet,Delayed Release (Dr/Ec) 325 mg PO BIDM Qty: 60 0RF Discontinued oxybutynin chloride 5 mg Tablet 5 mg PO DAILY Discharge Orders: Discharge Order (Routine); Ordered 10/23/24 Ordered By: Deborah Cisneros Admission Data Admit Date/Time: 10/20/24 22:10 Attending Provider: Deborah Cisneros Admit Provider: Jovanny Rosa Primary Care Provider: Jamin Rashid Other Providers: Jovanny Rosa Hospital Stay Data Consultations 10/20/24 21:20 ED Decision to Admit Stat Diagnostic Imagining Performed 10/20/24 16:53 CT head/brain wo con Stat 10/20/24 18:00 CT chest diagnostic wo con Stat Pending Results Patient Have Any Pending Studies at Discharge: No Discharge Instructions Given to Patient (Per Discharging Provider) Please finish out 3 more days of the antibiotic called Augmentin for your urinary tract infection. It is recommended that you stop taking oxybutynin as this can lead to retention of urine and urinary tract infections like the one you had. Total Time Total Time Spent Total Time Spent (In Minutes): 35 minutes Total Time Includes: Examination of the Patient, Discharge Planning and Medication Reconciliation Coding Level of Care Code 74167 INP/OBS DISCH >30 MIN Diagnoses Acute UTI N39.0 Generalized weakness R53.1 Myalgia M79.10
[2024-10-23 14:08] VITALS: BP 146/88; PULSE 71; TEMP 97.9; O2SAT 94
== END 2024-10-23 14:37 | disposition home or self-care (01) | DRG 690 ==
LOC: SUATTDRO → ED 16:39 → INTOOBSV 22:10 → SUATTDRO 22:10 → 2N 22:10 → 3W 10-21 21:22